=== PATIENT | female | born 1980 | race Caucasian/White ===

== ENCOUNTER 2018-08-15 20:35 | Inpatient (IN) ==
--- NOTE | 2018-08-15 20:58 | Emergency Department Note ---
ED Disposition Clinical Impression: IVDU (intravenous drug user) Cellulitis Qualifiers: Site of cellulitis: extremity Site of cellulitis of extremity: lower extremity Laterality: left Qualified Code(s): L03.116 - Cellulitis of left lower limb Anemia Qualifiers: Anemia type: unspecified type Qualified Code(s): D64.9 - Anemia, unspecified Hepatitis B Qualifiers: Viral hepatitis chronicity: unspecified Hepatic coma status: without hepatic coma Hepatitis delta agent presence: without delta-agent Qualified Code(s): B19.10 - Unspecified viral hepatitis B without hepatic coma Disposition: Admitted as Observation Condition on Discharge: Good Referrals: Hamida Moran [Primary Care Provider] - - Critical Care Critical Care Time: No Attestation: On 08/15/18, the high probability of a clinically significant, sudden or life threatening deterioration of the following system(s) required my full and direct attention, intervention and personal management. The time I documented below is in addition to time spent performing reported procedures but includes the following listed in this critical care notation. Medical Decision Making - Medical Records Medical records reviewed: Yes: I reviewed the patient's medical records. - Chriss Inquiry Pt receiving controlled substance: No Vital Signs: 08/15/18 20:41 08/15/18 21:00 08/15/18 22:00 Temperature 98.6 F Temperature Source Oral Pulse Rate [Right Brachial] 89 89 84 Respiratory Rate 16 16 16 Blood Pressure [Right Arm] 131/70 137/72 133/69 Blood Pressure Mean [Right Arm] 90 93 90 Blood Pressure Source [Right Arm] Automatic Cuff Automatic Cuff Automatic Cuff Blood Pressure Position [Right Arm] Sitting Sitting Sitting 02 Sat by Pulse Oximetry 99 99 99 Oxygen Delivery Method Room Air Room Air Room Air 08/15/18 22:30 08/15/18 23:18 Temperature Temperature Source Pulse Rate [Right Brachial] 88 86 Respiratory Rate 16 16 Blood Pressure [Right Arm] 139/80 124/71 Blood Pressure Mean [Right Arm] 99 88 Blood Pressure Source [Right Arm] Automatic Cuff Automatic Cuff Blood Pressure Position [Right Arm] Sitting Sitting 02 Sat by Pulse Oximetry 99 99 Oxygen Delivery Method Room Air Room Air - Lab Data Lab results reviewed: Yes: I reviewed the patient's lab results. Lab Results 08/15/18 20:55: Urine HCG, Qual Negative 08/15/18 20:55: Urine Opiates Screen Negative, Urine Methadone Screen Negative, Ur Barbituates Screen Negative, Ur Phencyclidine Scrn Negative, Ur Amphetamines Screen Negative, U Benzodiazepines Scrn Negative, Urine Cocaine Screen Negative, U Marijuana (THC) Screen Negative 08/15/18 21:03: Urine Color Yellow, Urine Appearance Clear, Urine pH 6.0, Ur Specific [place] 1.020, Urine Protein Negative, Urine Glucose (UA) Negative, Urine Ketones Negative, Urine Blood Trace-l, Urine Nitrate Negative, Urine Bilirubin Negative, Urine Urobilinogen 1.0, Ur Leukocyte Esterase Negative, Urine RBC Occasional, Urine WBC Occasional, Ur Squamous Epith Cells 5-10, Urine Bacteria Trace 08/15/18 21:30: WBC 14.7 H, RBC 3.27 L, Hgb 10.2 L, Hct 32.9 L, MCV 100.7 H, MCH 31.1, MCHC 30.9 L, RDW 15.6, Plt Count 435 H, MPV 7.6, Neut % (Auto) 73.1, Lymph % (Auto) 20.2, [place] % (Auto) 5.0, Eos % (Auto) 1.6, Baso % (Auto) 0.3, Neut # (Auto) 10.8 H, Lymph # (Auto) 3.0, [place] # (Auto) 0.7, Eos # (Auto) 0.2, Baso # (Auto) 0.0 08/15/18 21:30: Sodium 137, Potassium 3.4 L, Chloride 101, Carbon Dioxide 25, Anion Gap 14.4, BUN 13, Creatinine 1.16 H, Estimated Creat Clear 61, Estimated GFR 53 L, Est GFR ( Amer) 64, Glucose 116 H, Calcium 8.0 L, Total Bilirubin 2.2 H, AST 28, ALT 71, Alkaline Phosphatase 189 H, C-Reactive Protein 26.0 H, Total Protein 6.2 L, Albumin 2.3 L, Globulin 3.9 H, Albumin/Globulin Ratio 0.6 L 08/15/18 21:30: Lactate 1.3 08/15/18 21:30: Uric Acid 2.7 Result diagrams: 08/15/18 21:30 08/15/18 21:30 Orders (Tests/Meds): ORDERS Category Date Time Status CT foot LT wo con Stat Cat Scan 08/15/18 22:05 Taken Foot XR left minimum 3 views [XR foot LT min 3V] Stat Exams 08/15/18 20:55 Taken ESR [Erythrocyte Sedimentation Rate] Stat Lab 08/15/18 21:30 Received UA [Urinalysis and Microscopic] Stat Lab 08/15/18 21:03 Ordered Blood Culture Stat Micro 08/15/18 21:41 Ordered - Radiology Data #1 Image Reviewed: Yes I reviewed the patient's radiology image Preliminary Findings: No Fracture Seen - CT Data CT Scan: Other Time Received: 00:[address] Reviewed: Yes: I have viewed the radiologist's interpretation Preliminary Findings: Abnormal - Physician Consults Physician Consulted: maria luisa Reason -: Admission Lower Extremity Injury HPI - General Chief Complaint: Extremity Problem,Nontraumatic Stated Complaint: Feet pain Time Seen by Provider: 08/15/18 20:53 Mode of Arrival: Family Vehicle Source of Information: Patient, Relative, Medical Record Limitations: No Limitations Description of Symptoms (Recalled from ER Triage Doc. by RN): Pt was dx was hep.b about a month ago, she started having swelling in her feet, was seen by her pcp and given furosemide 20 mg. she is stating it is not helping, and now her feet are hurting with the swelling. - History of Present Illness HPI Narrative: progressive swelling and reddness dorsum of lt foot over the last few days - saw pcp and placed on lasic - inc pain and swelling and reddness with no hx of iv drug use in foot and no other jts swollen MD complaint: other (foot pain ) Onset (ago): day(s) Injury: Left: foot Type of Injury: other Place: home Severity: moderate Exacerbating factors: palpation Context: other Associated symptoms: able to partially bear weight Other symptoms: none - Related Data Home Medications Medication Instructions Recorded Confirmed Buspirone HCl [Buspar 10mg tablet] 10 mg PO DAILY 08/15/18 08/15/18 Furosemide [Furosemide 20mg Tab] 20 mg PO DAILY 08/15/18 08/15/18 Metoprolol Lilly/Hydrochlorothiaz 1 each PO DAILY 08/15/18 08/15/18 [Metoprolol ER-Hctz 25-12.5 mg] Allergies Allergy/AdvReac Type Severity Reaction Status Date / Time No Known Allergies Allergy Verified 08/15/18 20:48 [facility] History I have reviewed the patient's past medical history: Yes - Social History Smoking Status: Current every day smoker Tobacco Type: cigarettes Alcohol Intake: never Substance Use Type: denies use Occupational Status: unemployed Housing: house Household Members: family - Psychiatric History Expresses thoughts of harming self/others: None Suicide Plan Description: No Plan Family Hx:: Diabetes, Hypertension ROS Obtained: Yes All systems reviewed & no additional complaints - Constitutional Constitutional: Denies fever(s) - Eyes Eyes: Denies change in vision - ENT Ears, Nose, Mouth, and Throat: Denies sore throat - Cardiovascular Cardiovascular: Denies chest pain - Respiratory Respiratory: No cough - Gastrointestinal Gastrointestingal: Denies: abdominal pain - Genitourinary Male Genitourinary: Denies hematuria - Musculoskeletal Musculoskeletal: Reports as per HPI, Reports joint pain, Reports joint swelling - Integumentary/Breasts Skin/Breast: Denies rash - Neurologic Neurologic: Denies seizure-like activity Physical Exam - General General appearance: alert - Head Head exam: normocephalic - Eye Eye exam: Present: PERRL, EOMI - ENT ENT exam: Present: mucous membranes moist - Neck Neck exam: Present: trachea midline - Respiratory Respiratory exam: Present: normal lung sounds bilaterally. Absent: respiratory distress - Cardiovascular Cardiovascular exam: Present: regular rate. Absent: systolic murmur, rubs - Abdominal Exam Abdominal exam: Present: soft - Expanded Lower Extremity Exam Left Foot/toe exam: Present: tenderness, swelling, erythema - Neurological Exam Neurological exam: Present: alert, oriented X3, CN II-XII intact - Psychiatric Psychiatric exam: Present: normal affect - Skin Skin exam: Present: erythema. Absent: rash
[2018-08-15 21:08] LABS: Microscopic, Urine URINE MICROSCOPIC (MICROSCOPIC)
[2018-08-15 21:24] LABS: Amphetamine/Metha Screen,Urine Negative ng/mL (<1000); Barbiturates Screen,Urine Negative ng/mL (<200); Benzodiazepines Screen,Urine Negative ng/mL (<200); Cannabinoid Screen,Urine Negative ng/mL (<50); Cocaine Screen,Urine Negative ng/mL (<300); Methadone Screen,Urine Negative ng/mL (<300); Opiate Screen,Urine Negative ng/mL (<300); Phencyclidine Screen,Urine Negative ng/mL (<25)
[2018-08-15 22:02] LABS: Appearance,Urine CLEAR (Clear); Bilirubin,Urine Negative (Negative); Blood, Urine TRACE-L (Negative); Color,Urine YELLOW (Yellow); Glucose,Urine (UA) Negative (Negative); Ketones,Urine Negative (Negative); Leukocyte Esterase,Urine Negative (Negative); Protein,Urine Negative (Negative)
[2018-08-15 22:12] LABS: Bacteria,Urine Trace /lpf; RBC,Urine Occasional #/hpf (0-3); WBC,Urine Occasional #/hpf (0-3)
[2018-08-15 22:13] LABS: Albumin Level 2.3 gm/dL (3.4-5.0); Albumin/Globulin Ratio 0.6 (1.1-1.8); Anion Gap 14.4 mEq/L (5-15); Bilirubin,Total 2.2 mg/dL (0.2-1.0); Globulin 3.9 gm/dl (1.3-3.2); Potassium 3.4 mmoL/L (3.5-5.1); Total Protein,Serum 6.2 gm/dL (6.4-8.2)
[2018-08-15 23:25] LABS: Basophils % 0.3 % (0.1-2.0); Eosinophils # 0.2 K/mm3 (0.0-0.4); Eosinophils % 1.6 % (0.1-12.0); Hematocrit 32.9 % (37.0-47.0); Hemoglobin 10.2 g/dL (12.2-16.2); Lymphocytes % 20.2 % (10-50); Mean Corpuscular HGB Conc 30.9 g/dL (31.8-35.4); Mean Corpuscular Hemoglobin 31.1 pg (27.0-31.2); Mean Corpuscular Volume 100.7 fl (81-99); Mean Platelet Volume 7.6 fl (7.4-10.4); Monocytes # 0.7 K/mm3 (0.1-1.0); Neutrophils # 10.8 K/mm3 (1.8-7.8); Neutrophils % 73.1 % (37.0-80.0); Platelet Count 435 K/mm3 (142-424); Red Blood Count 3.27 M/mm3 (4.20-5.40); Red Cell Distribution Width 15.6 % (11.5-17.5); White Blood Count 14.7 K/mm3 (4.8-10.8)
[2018-08-16 06:17] LABS: Eosinophils % 0.1 % (0.1-12.0); Lymphocytes # 2.4 K/mm3 (0.7-4.5)
[2018-08-16 06:24] LABS: Anion Gap 12.6 mEq/L (5-15); Calcium 8.1 mg/dL (8.5-10.1); Potassium 3.6 mmoL/L (3.5-5.1)
[2018-08-16 06:28] LABS: Hematocrit 30.3 % (37.0-47.0); Hemoglobin 9.4 g/dL (12.2-16.2); Lymphocytes % 14.6 % (10-50); Mean Corpuscular HGB Conc 31.1 g/dL (31.8-35.4); Mean Corpuscular Hemoglobin 31.5 pg (27.0-31.2); Mean Corpuscular Volume 101.1 fl (81-99); Mean Platelet Volume 7.4 fl (7.4-10.4); Monocytes # 0.2 K/mm3 (0.1-1.0); Monocytes % 0.9 % (1.7-9.3); Neutrophils # 13.8 K/mm3 (1.8-7.8); Neutrophils % 84.4 % (37.0-80.0); Platelet Count 484 K/mm3 (142-424); Red Cell Distribution Width 15.4 % (11.5-17.5); White Blood Count 16.4 K/mm3 (4.8-10.8)
[2018-08-16 07:13] LABS: Lymphocytes % 10 % (10-50); Monocytes % 2 % (2-9); Neutrophils % 88 % (42-76); RBC Morphology Normal; Total Cells Counted 100
--- NOTE | 2018-08-16 08:33 | History & Physical Report ---
*Admission Date: 08/16/18 *Chief complaint: Swelling of feet *History of present illness: This 38-year-old white female been in the emergency room at [facility] with complaints of swelling of her feet. Her feet have been swollen over the past 5 or 6 days. She was seen 4 days ago by her primary care physician Dr. Moran in [facility]. She had had a low-grade fever on Monday. Patient was treated with Lasix and no antibiotics. The swelling and discomfort has continued. She has had to use a crutch in order to get around she has such discomfort in her left foot particularly. Patient has a history of IV drug use. 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 In April she went into a rehab facility in [facility]. After 10 days of detoxification she was in the facility for 28 days. She states that she has been clean since that time. She adamantly denies that she has shot heroin into the veins of the feet. Also significant in the patient's past history is a patent foramen ovale. She also has a history of headaches. To her knowledge she has not been checked for HIV. He does have known hepatitis B which apparently was contracted during her IV drug use. [facility] History Medical History: Reports:: Congenital Heart Disease, Heart Murmur (PFO), Hypertension, Migraine Denies:: Cancer, Deep Vein Thrombosis, Diabetes Mellitus Type 2, MRSA, Peripheral Vascular Disease Other Medical History: Reports: Anemia, Liver Disease Laterality Cases: Right: Breast Biopsy Other Surgeries: No: Pacemaker Amputation: No Fractures: Yes ((L) ankle) - *Social History Educational Level: Attended College Smoking Status: Current every day smoker Tobacco Type: cigarettes # Packs/Day (cigarettes): 1 #Yrs smoked (if former smoker): 22 Alcohol Intake: never Alcohol Intake Frequency:: holidays/special occasions only Substance Use Type: former substance user, heroin Last Used Substance: days (ago) (None since April) Occupational Status: unemployed Housing: house Household Members: family, children (1 daughter) - Psychiatric History Expresses thoughts of harming self/others: None Suicide Plan Description: No Plan *Family Hx:: Diabetes, Heart Attack (Father at age 57 had a heart attack. Mother has Robison's esophagus. One daughter with hearing deficit.), Hypertension : 1 Para: 1 Review of Systems - Constitutional Reports fever(s), Reports headache(s), Denies anorexia - Eyes Denies change in vision - ENT Denies abnormal hearing - *Cardiovascular Reports leg swelling, Reports foot swelling, Denies chest pain, Denies leg sores - *Respiratory Denies chest congestion, Denies shortness of breath - *Gastrointestinal Denies abdominal pain, Denies change in bowel habits, Denies change in stools - *Genitourinary Denies abnormal vaginal bleeding - Integumentary/Breasts Denies lesions - *Neurologic Denies seizure-like activity Meds Home Medications Medication Instructions Recorded Confirmed Type Buspirone HCl [Buspar 10mg tablet] 10 mg PO DAILY 08/15/18 08/16/18 History Furosemide [Furosemide 20mg Tab] 20 mg PO DAILY 08/15/18 08/16/18 History Metoprolol Lilly/Hydrochlorothiaz 25 mg PO DAILY 08/15/18 08/16/18 History [Metoprolol ER-Hctz 25-12.5 mg] Allergies Allergy/AdvReac Type Severity Reaction Status Date / Time No Known Allergies Allergy Verified 08/15/18 20:48 Exam Vital signs and Labs for Last 24 Hours: Temp Pulse Resp BP Pulse Ox 98.2 F 69 18 126/74 100 08/16/18 07:34 08/16/18 07:34 08/16/18 07:34 08/16/18 07:34 08/16/18 07:34 Laboratory Results - last 24 hr 08/15/18 20:55: Urine HCG, Qual Negative 08/15/18 20:55: Urine Opiates Screen Negative, Urine Methadone Screen Negative, Ur Barbituates Screen Negative, Ur Phencyclidine Scrn Negative, Ur Amphetamines Screen Negative, U Benzodiazepines Scrn Negative, Urine Cocaine Screen Negative, U Marijuana (THC) Screen Negative 08/15/18 21:03: Urine Color Yellow, Urine Appearance Clear, Urine pH 6.0, Ur Specific [place] 1.020, Urine Protein Negative, Urine Glucose (UA) Negative, Urine Ketones Negative, Urine Blood Trace-l, Urine Nitrate Negative, Urine Bilirubin Negative, Urine Urobilinogen 1.0, Ur Leukocyte Esterase Negative, Urine RBC Occasional, Urine WBC Occasional, Ur Squamous Epith Cells 5-10, Urine Bacteria Trace 08/15/18 21:30: WBC 14.7 H, RBC 3.27 L, Hgb 10.2 L, Hct 32.9 L, MCV 100.7 H, MCH 31.1, MCHC 30.9 L, RDW 15.6, Plt Count 435 H, MPV 7.6, Neut % (Auto) 73.1, Lymph % (Auto) 20.2, [place] % (Auto) 5.0, Eos % (Auto) 1.6, Baso % (Auto) 0.3, Neut # (Auto) 10.8 H, Lymph # (Auto) 3.0, [place] # (Auto) 0.7, Eos # (Auto) 0.2, Baso # (Auto) 0.0 08/15/18 21:30: Sodium 137, Potassium 3.4 L, Chloride 101, Carbon Dioxide 25, Anion Gap 14.4, BUN 13, Creatinine 1.16 H, Estimated Creat Clear 61, Estimated GFR 53 L, Est GFR ( Amer) 64, Glucose 116 H, Calcium 8.0 L, Total Bi lirubin 2.2 H, AST 28, ALT 71, Alkaline Phosphatase 189 H, C-Reactive Protein 26.0 H, Total Protein 6.2 L, Albumin 2.3 L, Globulin 3.9 H, Albumin/Globulin Ratio 0.6 L 08/15/18 21:30: Lactate 1.3 08/15/18 21:30: ESR 80 H 08/15/18 21:30: Uric Acid 2.7 08/16/18 05:32: WBC 16.4 H, RBC 3.00 L, Hgb 9.4 L, Hct 30.3 L, MCV 101.1 H, MCH 31.5 H, MCHC 31.1 L, RDW 15.4, Plt Count 484 H, MPV 7.4, Neut % (Auto) 84.4 H, Lymph % (Auto) 14.6, [place] % (Auto) 0.9 L, Eos % (Auto) 0.1, Baso % (Auto) 0.0 L, Neut # (Auto) 13.8 H, Lymph # (Auto) 2.4, [place] # (Auto) 0.2, Eos # (Auto) 0.0, Baso # (Auto) 0.0, Total Counted 100, Neutrophils % (Manual) 88 H, Lymphocytes % (Manual) 10, Monocytes % (Manual) 2, Platelet Estimate Normal, RBC Morphology Normal 08/16/18 05:32: Sodium 138, Potassium 3.6, Chloride 104, Carbon Dioxide 25, Anion Gap 12.6, BUN 11, Creatinine 1.00, Estimated Creat Clear 69, Estimated GFR 62, Est GFR ( Amer) 75, Glucose 156 H D, Calcium 8.1 L I & O for Last 24 hours: Intake & Output 08/13/18 08/14/18 08/15/18 08/16/18 11:59 11:59 11:59 11:59 Intake Total 50 / 50 Output Total 850 / 850 Balance -800 / -800 Weight 125 lb 8 oz - Constitutional no acute distress Comments: Pale - *Routine HEENT Exam Head: Present: normocephalic Eye: Present: EOMI, PERRL ENT: Present: mucous membranes moist - *Routine Neck Exam Present: supple. Absent: lymphadenopathy - Routine Chest/Breast/Axilla Exam Comments: Pectus excavatum - *Routine Respiratory Exam Present: CTA bilaterally - *Routine Cardiovascular Exam Present: RRR, murmur Comments: 2/6 murmur - *Routine Abdominal Exam Present: soft, normoactive bowel sounds. Absent: tenderness - *Routine Extremities Exam Comments: She has bilateral pedal edema with the left foot more swollen than the right and some skin changes noticed on the left due to stasis. She has no open wounds. Both feet are quite tender to exam. The right foot is not very erythematous at all and is much less swollen than the left. - *Routine Neurological Exam Present: alert, oriented X3, normal speech. Absent: motor deficit, tremors - Routine Psychiatric Exam Present: normal affect, normal thought process Assessment and Plan (1) Cellulitis of left foot Current visit: Yes Status: Acute Category: Medical Code(s): L03.116 - Cellulitis of left lower limb (2) Patent foramen ovale Current visit: Yes Status: Acute Category: Medical Code(s): Q21.1 - Atrial septal defect (3) Anemia Current visit: Yes Status: Acute Qualifiers: Anemia type: unspecified type Qualified Code(s): D64.9 - Anemia, unspecified Category: Medical Code(s): D64.9 - Anemia, unspecified (4) IVDU (intravenous drug user) Current visit: Yes Status: Acute Category: Medical Code(s): F19.90 - Other psychoactive substance use, unspecified, uncomplicated (5) Hepatitis B Current visit: Yes Status: Acute Qualifiers: Viral hepatitis chronicity: unspecified Hepatic coma status: without hepatic coma Hepatitis delta agent presence: without delta-agent Qualified Code(s): B19.10 - Unspecified viral hepatitis B without hepatic coma Category: Medical Code(s): B19.10 - Unspecified viral hepatitis B without hepatic coma - Assessment and plan all Dx Assessment and Plan for all problems:: IV antibiotics have been instituted. Heat will be applied to the left foot. HIV testing will be obtained.
--- NOTE | 2018-08-16 09:20 | Pharmacy Consult Notes ---
[facility] Pharmacy VTE Monitoring - Patient Demographics Admission date: 08/16/18 Report Date: 08/16/18 Time: 09:20 Allergies/Adverse Reactions: Patient Allergies No Known Allergies Allergy (Verified 08/15/18 20:48) Height: 1.68 m Weight: 56.926 kg Patient Problems: Current Active Problems Cellulitis (Acute) Anemia (Acute) IVDU (intravenous drug user) (Acute) Hepatitis B (Acute) Cellulitis of left foot (Acute) Patent foramen ovale (Acute) - VTE Risk Labs: VTE Related Lab Results Hgb 9.4 g/dL (12.2-16.2) L 08/16/18 05:32 Hct 30.3 % (37.0-47.0) L 08/16/18 05:32 Plt Count 484 K/mm3 (142-424) H 08/16/18 05:32 BUN 11 mg/dL (7-18) 08/16/18 05:32 Creatinine 1.00 mg/dL (0.55-1.02) 08/16/18 05:32 Estimated Creat Clear 69 mL/min (50-200) 08/16/18 05:32 Was VTE Risk Assessment Performed: Yes VTE Score: 2 VTE Risk Level: Low Risk Clinical Trial Participant: No - Prophylaxis VTE Prophylaxis Ordered?: Yes Types of VTE Prophylaxis: TEDS Knee High
--- NOTE | 2018-08-16 12:07 | Pharmacy Consult Notes ---
- Pharmacy Consult Date: 08/16/18 Time: 12:05 Referring provider: DR. EMANUEL Reason for Consult:: VANCOMYCIN DOSING Allergies and ADEs:: Allergies Allergy/AdvReac Type Severity Reaction Status Date / Time No Known Allergies Allergy Verified 08/15/18 20:48 Home Medications:: Home Medications Medication Instructions Recorded Confirmed Type Buspirone HCl [Buspar 10mg tablet] 10 mg PO BID 08/15/18 08/16/18 History Furosemide [Furosemide 20mg Tab] 20 mg PO DAILYP PRN 08/15/18 08/16/18 History Metoprolol Lilly/Hydrochlorothiaz 25 mg PO DAILY 08/15/18 08/16/18 History [Metoprolol ER-Hctz 25-12.5 mg] Meloxicam 15 mg PO DAILY 08/16/18 08/16/18 History Naltrexone Microspheres [Vivitrol] 380 mg IM MONTHLY 08/16/18 08/16/18 History Pantoprazole Sodium [Protonix 40mg 40 mg PO HS 08/16/18 08/16/18 History tablet] Vortioxetine Hydrobromide 10 mg PO DAILY 08/16/18 08/16/18 History [Trintellix] buPROPion HCl [Wellbutrin SR 150mg 150 mg PO BID 08/16/18 08/16/18 History Tablet] Height: 1.68 m Weight: 56.926 kg Laboratory Results:: Laboratory Results - last 24 hr 08/15/18 20:55: Urine HCG, Qual Negative 08/15/18 20:55: Urine Opiates Screen Negative, Urine Methadone Screen Negative, Ur Barbituates Screen Negative, Ur Phencyclidine Scrn Negative, Ur Amphetamines Screen Negative, U Benzodiazepines Scrn Negative, Urine Cocaine Screen Negative, U Marijuana (THC) Screen Negative 08/15/18 21:03: Urine Color Yellow, Urine Appearance Clear, Urine pH 6.0, Ur Specific [place] 1.020, Urine Protein Negative, Urine Glucose (UA) Negative, Urine Ketones Negative, Urine Blood Trace-l, Urine Nitrate Negative, Urine Bilirubin Negative, Urine Urobilinogen 1.0, Ur Leukocyte Esterase Negative, Urine RBC Occasional, Urine WBC Occasional, Ur Squamous Epith Cells 5-10, Urine Bacteria Trace 08/15/18 21:30: WBC 14.7 H, RBC 3.27 L, Hgb 10.2 L, Hct 32.9 L, MCV 100.7 H, MCH 31.1, MCHC 30.9 L, RDW 15.6, Plt Count 435 H, MPV 7.6, Neut % (Auto) 73.1, Lymph % (Auto) 20.2, [place] % (Auto) 5.0, Eos % (Auto) 1.6, Baso % (Auto) 0.3, Neut # (Auto) 10.8 H, Lymph # (Auto) 3.0, [place] # (Auto) 0.7, Eos # (Auto) 0.2, Baso # (Auto) 0.0 08/15/18 21:30: Sodium 137, Potassium 3.4 L, Chloride 101, Carbon Dioxide 25, Anion Gap 14.4, BUN 13, Creatinine 1.16 H, Estimated Creat Clear 61, Estimated GFR 53 L, Est GFR ( Amer) 64, Glucose 116 H, Calcium 8.0 L, Total Bilirubin 2.2 H, AST 28, ALT 71, Alkaline Phosphatase 189 H, C-Reactive Protein 26.0 H, Total Protein 6.2 L, Albumin 2.3 L, Globulin 3.9 H, Albumin/Globulin Ratio 0.6 L 08/15/18 21:30: Lactate 1.3 08/15/18 21:30: ESR 80 H 08/15/18 21:30: Uric Acid 2.7 08/16/18 05:32: WBC 16.4 H, RBC 3.00 L, Hgb 9.4 L, Hct 30.3 L, MCV 101.1 H, MCH 31.5 H, MCHC 31.1 L, RDW 15.4, Plt Count 484 H, MPV 7.4, Neut % (Auto) 84.4 H, Lymph % (Auto) 14.6, [place] % (Auto) 0.9 L, Eos % (Auto) 0.1, Baso % (Auto) 0.0 L, Neut # (Auto) 13.8 H, Lymph # (Auto) 2.4, [place] # (Auto) 0.2, Eos # (Auto) 0.0, Baso # (Auto) 0.0, Total Counted 100, Neutrophils % (Manual) 88 H, Lymphocytes % (Manual) 10, Monocytes % (Manual) 2, Platelet Estimate Normal, RBC Morphology Normal 08/16/18 05:32: Sodium 138, Potassium 3.6, Chloride 104, Carbon Dioxide 25, Anion Gap 12.6, BUN 11, Creatinine 1.00, Estimated Creat Clear 69, Estimated GFR 62, Est GFR ( Amer) 75, Glucose 156 H D, Calcium 8.1 L Medical History: Reports:: Congenital Heart Disease, Heart Murmur (PFO), Hypertension, Migraine Denies:: Cancer, Deep Vein Thrombosis, Diabetes Mellitus Type 2, Internal Pacemaker, MRSA, Peripheral Vascular Disease Assessment and Plan (1) Cellulitis of left foot Current visit: Yes Status: Acute Category: Medical Code(s): L03.116 - Cellulitis of left lower limb (2) Patent foramen ovale Current visit: Yes Status: Acute Category: Medical Code(s): Q21.1 - Atrial septal defect (3) Anemia Current visit: Yes Status: Acute Qualifiers: Anemia type: unspecified type Qualified Code(s): D64.9 - Anemia, unspecified Category: Medical Code(s): D64.9 - Anemia, unspecified (4) IVDU (intravenous drug user) Current visit: Yes Status: Acute Category: Medical Code(s): F19.90 - Other psychoactive substance use, unspecified, uncomplicated (5) Hepatitis B Current visit: Yes Status: Acute Qualifiers: Viral hepatitis chronicity: unspecified Hepatic coma status: without hepatic coma Hepatitis delta agent presence: without delta-agent Qualified Code(s): B19.10 - Unspecified viral hepatitis B without hepatic coma Category: Medical Code(s): B19.10 - Unspecified viral hepatitis B without hepatic coma - Assessment and plan all Dx Assessment and Plan for all problems:: BASED ON PATIENT FACTORS, RECOMMEND VANCOMYCIN 1250MG IV Q12H. WILL OBTAIN VANCOMYCIN TROUGH LEVEL PRIOR TO 4TH DOSE. PHARMACY WILL FOLLOW DAILY AND ADJUST APPROPRIATE.
[2018-08-17 05:53] LABS: Basophils % 0.1 % (0.1-2.0); Eosinophils % 0.1 % (0.1-12.0); Hematocrit 25.2 % (37.0-47.0); Lymphocytes # 3.3 K/mm3 (0.7-4.5); Lymphocytes % 15.1 % (10-50); Mean Corpuscular HGB Conc 31.1 g/dL (31.8-35.4); Mean Corpuscular Hemoglobin 31.2 pg (27.0-31.2); Mean Corpuscular Volume 100.1 fl (81-99); Mean Platelet Volume 7.3 fl (7.4-10.4); Monocytes # 0.8 K/mm3 (0.1-1.0); Monocytes % 3.9 % (1.7-9.3); Neutrophils # 17.4 K/mm3 (1.8-7.8); Neutrophils % 80.8 % (37.0-80.0); Platelet Count 412 K/mm3 (142-424); Red Blood Count 2.51 M/mm3 (4.20-5.40); Red Cell Distribution Width 15.4 % (11.5-17.5); White Blood Count 21.6 K/mm3 (4.8-10.8)
[2018-08-17 06:01] LABS: Calcium 7.4 mg/dL (8.5-10.1)
[2018-08-17 06:07] LABS: Hemoglobin 7.8 g/dL (12.2-16.2)
[2018-08-17 08:27] LABS: Lymphocytes % 11 % (10-50); Monocytes % 2 % (2-9); Neutrophils % 87 % (42-76); Total Cells Counted 100
--- NOTE | 2018-08-17 09:01 | Progress Note ---
Internal Medicine - PN: Subj *Date: 08/17/18 *Time: 08:56 Interval history: Pt is resting in bed watching tv. She has no complaint other than bilateral foot pain, left more so than right, which has improved slightly since admission. Exam Vital signs and Labs for Last 24 Hours: Temp Pulse Resp BP Pulse Ox 98.2 F 67 18 118/67 100 08/17/18 08:00 08/17/18 08:00 08/17/18 08:00 08/17/18 08:00 08/17/18 08:00 Laboratory Results - last 24 hr 08/17/18 05:39: WBC 21.6 H* D, RBC 2.51 L, Hgb 7.8 L*, Hct 25.2 L, MCV 100.1 H, MCH 31.2, MCHC 31.1 L, RDW 15.4, Plt Count 412, MPV 7.3 L, Neut % (Auto) 80.8 H, Lymph % (Auto) 15.1, [place] % (Auto) 3.9, Eos % (Auto) 0.1, Baso % (Auto) 0.1, Neut # (Auto) 17.4 H, Lymph # (Auto) 3.3, [place] # (Auto) 0.8, Eos # (Auto) 0.0, Baso # (Auto) 0.0, Total Counted 100, Neutrophils % (Manual) 87 H, Lymphocytes % (Manual) 11, Monocytes % (Manual) 2, Platelet Estimate Normal 08/17/18 05:39: Sodium 142, Potassium 3.0 L, Chloride 109 H, Carbon Dioxide 26, Anion Gap 10.0, BUN 8 D, Creatinine 0.91, Estimated Creat Clear 76, Estimated GFR 70, Est GFR ( Amer) 84, Glucose 111 H, Calcium 7.4 L I & O for Last 24 hours: Intake & Output 08/14/18 08/15/18 08/16/18 08/17/18 11:59 11:59 11:59 11:59 Intake Total 410 / 410 2967 / 2967 Output Total 850 / 850 1600 / 1600 Balance -440 / -440 1367 / 1367 Weight 125 lb 8 oz 134 lb 5 oz - Constitutional no acute distress - *Routine HEENT Exam Head: Present: normocephalic, atraumatic ENT: Present: mucous membranes moist - *Routine Respiratory Exam Present: CTA bilaterally - *Routine Cardiovascular Exam Present: RRR - *Routine Abdominal Exam Present: soft, normoactive bowel sounds. Absent: tenderness, distended, rebound, guarding, rigid - *Routine Extremities Exam Comments: bilateral pedal/ankle edema L > R with faint erythema of the left dorsal foot; sensation decreased bilaterally - *Routine Neurological Exam Present: alert, oriented X3, moving all extremities, normal speech Assessment and Plan (1) Cellulitis of left foot Current visit: Yes Status: Acute Category: Medical Code(s): L03.116 - Cellulitis of left lower limb (2) Patent foramen ovale Current visit: Yes Status: Acute Category: Medical Code(s): Q21.1 - Atrial septal defect (3) Anemia Current visit: Yes Status: Acute Qualifiers: Anemia type: unspecified type Qualified Code(s): D64.9 - Anemia, unspecified Category: Medical Code(s): D64.9 - Anemia, unspecified (4) IVDU (intravenous drug user) Current visit: Yes Status: Acute Category: Medical Code(s): F19.90 - Other psychoactive substance use, unspecified, uncomplicated (5) Hepatitis B Current visit: Yes Status: Acute Qualifiers: Viral hepatitis chronicity: unspecified Hepatic coma status: without hepatic coma Hepatitis delta agent presence: without delta-agent Qualified Code(s): B19.10 - Unspecified viral hepatitis B without hepatic coma Category: Medical Code(s): B19.10 - Unspecified viral hepatitis B without hepatic coma - Assessment and plan all Dx Assessment and Plan for all problems:: WBC increased. HIV pending. Further per Dr. Gonzalez.
--- NOTE | 2018-08-17 11:45 | Consult Report ---
*Admission Date: 08/16/18 *Chief complaint: L foot pain *History of present illness: 38-year-old female with a chief complaint of left foot pain. She started having both pain and swelling in this foot around 1 week ago. She was seen by her primary care physician who gave her furosemide; this did not improve her symptoms. She sustained a fracture in the left foot around 8 weeks ago, diagnosed at the [facility] and treated in a CAM boot; she left the CAM boot at home. She says the fracture was in the forefoot region. Currently the pain is localized to the midfoot/forefoot and she reports changes in both color and temperature. The foot is intermittently warm and cold and has been both pink/purple in color. Applying ice to the foot exacerbated her pain at home. Heat application here in the hospital did not improve her pain either. She denies any recent history of trauma; no cuts, puncture wounds, scrapes or any traumatic injuries. 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 She was treated in inpatient treatment program for 28 days and is remaining active in a recovery program at home. She denies ever having used her feet or toes as access points for her use. No other areas of cellulitis, abscesses; no pain in any other extremity. No recent illnesses such as upper respiratory or GI illnesses. She was diagnosed with hepatitis B recently which was believed to be contracted from intravenous drug use. No known history of HIV; testing was done this admission and is pending. Review of Systems - Review of Systems Review of systems:: pertinent systems reviewed and negative unless documented below - *Neurologic Reports headache(s), Denies abnormal hearing, Denies seizure-like activity [facility] History Medical History: Reports:: Congenital Heart Disease, Heart Murmur (PFO), Hypertension, Migraine Denies:: Cancer, Deep Vein Thrombosis, Diabetes Mellitus Type 2, Internal Pacemaker, MRSA, Peripheral Vascular Disease Other Medical History: Reports: Anemia, Liver Disease Laterality Cases: Right: Breast Biopsy Other Surgeries: No: Pacemaker Amputation: No Fractures: Yes ((L) foot) - *Social History Educational Level: Attended College Smoking Status: Current every day smoker Tobacco Type: cigarettes # Packs/Day (cigarettes): 1 #Yrs smoked (if former smoker): 22 Alcohol Intake: never Alcohol Intake Frequency:: holidays/special occasions only Substance Use Type: former substance user, heroin Last Used Substance: days (ago) (None since April) Occupational Status: unemployed Housing: house Household Members: family, children (1 daughter) - Psychiatric History Expresses thoughts of harming self/others: None Suicide Plan Description: No Plan *Family Hx:: Diabetes, Heart Attack (Father at age 57 had a heart attack. Mother has Robison's esophagus. One daughter with hearing deficit.), Hypertension Para: 1 Meds Home Medications Medication Instructions Recorded Confirmed Type Buspirone HCl [Buspar 10mg tablet] 10 mg PO BID 08/15/18 08/16/18 History Furosemide [Furosemide 20mg Tab] 20 mg PO DAILYP PRN 08/15/18 08/16/18 History Metoprolol Lilly/Hydrochlorothiaz 25 mg PO DAILY 08/15/18 08/16/18 History [Metoprolol ER-Hctz 25-12.5 mg] Meloxicam 15 mg PO DAILY 08/16/18 08/16/18 History Naltrexone Microspheres [Vivitrol] 380 mg IM MONTHLY 08/16/18 08/16/18 History Pantoprazole Sodium [Protonix 40mg 40 mg PO HS 08/16/18 08/16/18 History tablet] Vortioxetine Hydrobromide 10 mg PO DAILY 08/16/18 08/16/18 History [Trintellix] buPROPion HCl [Wellbutrin SR 150mg 150 mg PO BID 08/16/18 08/16/18 History Tablet] Allergies Allergy/AdvReac Type Severity Reaction Status Date / Time No Known Allergies Allergy Verified 08/15/18 20:48 Exam Vital signs and Labs for Last 24 Hours: Temp Pulse Resp BP Pulse Ox 98.2 F 67 16 118/67 100 08/17/18 08:00 08/17/18 08:00 08/17/18 10:20 08/17/18 08:00 08/17/18 08:00 Laboratory Results - last 24 hr 08/17/18 05:39: WBC 21.6 H* D, RBC 2.51 L, Hgb 7.8 L*, Hct 25.2 L, MCV 100.1 H, MCH 31.2, MCHC 31.1 L, RDW 15.4, Plt Count 412, MPV 7.3 L, Neut % (Auto) 80.8 H, Lymph % (Auto) 15.1, [place] % (Auto) 3.9, Eos % (Auto) 0.1, Baso % (Auto) 0.1, Neut # (Auto) 17.4 H, Lymph # (Auto) 3.3, [place] # (Auto) 0.8, Eos # (Auto) 0.0, Baso # (Auto) 0.0, Total Counted 100, Neutrophils % (Manual) 87 H, Lymphocytes % (Manual) 11, Monocytes % (Manual) 2, Platelet Estimate Normal 08/17/18 05:39: Sodium 142, Potassium 3.0 L, Chloride 109 H, Carbon Dioxide 26, Anion Gap 10.0, BUN 8 D, Creatinine 0.91, Estimated Creat Clear 76, Estimated GFR 70, Est GFR ( Amer) 84, Glucose 111 H, Calcium 7.4 L 08/17/18 09:40: Blood Type A Positive, Antibody Screen Negative, Crossmatch (AHG) See Detail 08/17/18 09:40: Direct Antiglob Test Negative 08/17/18 10:30: Blood Type Confirm A Positive I & O for Last 24 hours: Intake & Output 08/14/18 08/15/18 08/16/18 08/17/18 11:59 11:59 11:59 11:59 Intake Total 410 / 410 2967 / 2967 Output Total 850 / 850 1950 / 1950 Balance -440 / -440 1017 / 1017 Weight 125 lb 8 oz 134 lb 5 oz - Constitutional no acute distress, average body habitus, cooperative - *Routine HEENT Exam Head: Present: normocephalic, atraumatic Eye: Present: EOMI ENT: Present: mucous membranes moist - *Routine Neck Exam Present: supple - *Routine Respiratory Exam Present: CTA bilaterally. Absent: accessory muscle use, respiratory distress - *Routine Cardiovascular Exam Present: RRR - *Routine Abdominal Exam Present: soft. Absent: tenderness - *Routine Extremities Exam Present: edema, full ROM, pulses intact, normal capillary refill, tenderness. Absent: cyanosis, clubbing - *Routine Skin Exam Present: intact, warm - *Routine Neurological Exam Present: alert, oriented X3, normal reflexes, moving all extremities, normal tone, vision grossly intact, hearing grossly intact. Absent: sensory deficit, m otor deficit - Routine Psychiatric Exam Present: normal affect, cooperative - Additional findings Additional findings: patient AAOx3, NAD, very pleasant/cooperative L foot with mild pink color over dorsal forefoot, would not classify as erythematous or cellulitic L foot warm to touch, patient reports intermittent cooling/warmth temperature changes +hypersensitivity L foot; patient very sensitive to the lightest of touches L foot skin dry, no palpable fluctuance, no erythema spreading beyond dorsal forefoot region L foot intact DF/PF/EHL; patient more comfortable with foot in plantarflexed/adducted position palpable pedal pulses LLE SILT distally in all distributions LLE no open wounds, sores, ulcers, puncture wounds, or other lesions on L foot Results - Labs Result Diagrams: 08/17/18 05:39 08/17/18 05:39 Labs: Abnormal lab results 08/17/18 08/17/18 08/17/18 Range/Units 05:39 05:39 09:40 WBC 21.6 H* D (4.8-10.8) K/mm3 RBC 2.51 L (4.20-5.40) M/mm3 Hgb 7.8 L* (12.2-16.2) g/dL Hct 25.2 L (37.0-47.0) % MCV 100.1 H (81-99) fl MCHC 31.1 L (31.8-35.4) g/dL MPV 7.3 L (7.4-10.4) fl Neut % (Auto) 80.8 H (37.0-80.0) % Neut # (Auto) 17.4 H (1.8-7.8) K/mm3 Neutrophils % (Manual) 87 H (42-76) % Potassium 3.0 L (3.5-5.1) mmoL/L Chloride 109 H (98-107) mmol/L Glucose 111 H (74-106) mg/dL Calcium 7.4 L (8.5-10.1) mg/dL Crossmatch (AHG) See Detail H & H 08/15/18 08/16/18 08/17/18 Range/Units 21:30 05:32 05:39 Hgb 10.2 L 9.4 L 7.8 L* (12.2-16.2) g/dL Hct 32.9 L 30.3 L 25.2 L (37.0-47.0) % All other labs normal. - Diagnostic results Ankle/Foot x-ray: report reviewed, image reviewed Ankle/Foot CT: report reviewed, image reviewed (no fracture, no subcutaneous air) Assessment and Plan (1) Left foot pain Current visit: Yes Status: Acute Category: Medical Code(s): M79.672 - Pain in left foot - Assessment and plan all Dx Assessment and Plan for all problems:: I believe the patient's foot pain is more consistent with a CRPS type I picture rather than an infection. Examination shows hyperesthesia, temperature and skin color changes, and edema of the foot. She has continuing pain after a forefoot fracture which I would consider out of proportion to the inciting event. On x- ray and CT scan today, however, I do not see a fracture either acute or healed. Without her records from it is hard to say what may have been broken, or she may have had a stress reaction rather than a complete fracture. CRPS is certain ly likely even without a fracture. With the exaggerated inflammatory response in CRPS, I would not be surprised to see elevated white blood cell count as well as CRP/ESR. Blood cultures have been negative thus far. She is being treated with vancomycin and Bactrim. To be complete and rule out any soft tissue infection in the foot, I would recommend an MRI. A white blood cell count of 21 is high in my opinion, even for the exaggerated response seen in CRPS, so I would feel more comfortable if we did do an MRI just to rule out an infection in her foot, more specifically something that would need surgical treatment. If MRI is negative then I would recommend initiating treatment with gabapentin, physical therapy and possible referral to pain management. Other medical therapies that may be of benefit would be either a tricyclic/SSRI, calcitonin or pulsed doses of steroids. I will leave this up to the medical team. She felt better after I wrapped her foot with an Rishi wrap, so I ordered a cam boot to be placed on her foot and she may weight-bear as tolerated.
--- NOTE | 2018-08-17 13:00 | Pharmacy Consult Notes ---
- Pharmacy Consult Date: 08/17/18 Time: 12:59 Referring provider: DR. EMANUEL Reason for Consult:: VANCOMYCIN TROUGH LEVEL Allergies and ADEs:: Allergies Allergy/AdvReac Type Severity Reaction Status Date / Time No Known Allergies Allergy Verified 08/15/18 20:48 Home Medications:: Home Medications Medication Instructions Recorded Confirmed Type Buspirone HCl [Buspar 10mg tablet] 10 mg PO BID 08/15/18 08/16/18 History Furosemide [Furosemide 20mg Tab] 20 mg PO DAILYP PRN 08/15/18 08/16/18 History Metoprolol Lilly/Hydrochlorothiaz 25 mg PO DAILY 08/15/18 08/16/18 History [Metoprolol ER-Hctz 25-12.5 mg] Meloxicam 15 mg PO DAILY 08/16/18 08/16/18 History Naltrexone Microspheres [Vivitrol] 380 mg IM MONTHLY 08/16/18 08/16/18 History Pantoprazole Sodium [Protonix 40mg 40 mg PO HS 08/16/18 08/16/18 History tablet] Vortioxetine Hydrobromide 10 mg PO DAILY 08/16/18 08/16/18 History [Trintellix] buPROPion HCl [Wellbutrin SR 150mg 150 mg PO BID 08/16/18 08/16/18 History Tablet] Height: 1.68 m Weight: 60.923 kg Laboratory Results:: Laboratory Results - last 24 hr 08/17/18 05:39: WBC 21.6 H* D, RBC 2.51 L, Hgb 7.8 L*, Hct 25.2 L, MCV 100.1 H, MCH 31.2, MCHC 31.1 L, RDW 15.4, Plt Count 412, MPV 7.3 L, Neut % (Auto) 80.8 H, Lymph % (Auto) 15.1, [place] % (Auto) 3.9, Eos % (Auto) 0.1, Baso % (Auto) 0.1, Neut # (Auto) 17.4 H, Lymph # (Auto) 3.3, [place] # (Auto) 0.8, Eos # (Auto) 0.0, Baso # (Auto) 0.0, Total Counted 100, Neutrophils % (Manual) 87 H, Lymphocytes % (Manual) 11, Monocytes % (Manual) 2, Platelet Estimate Normal 08/17/18 05:39: Sodium 142, Potassium 3.0 L, Chloride 109 H, Carbon Dioxide 26, Anion Gap 10.0, BUN 8 D, Creatinine 0.91, Estimated Creat Clear 76, Estimated GFR 70, Est GFR ( Amer) 84, Glucose 111 H, Calcium 7.4 L 08/17/18 09:40: Blood Type A Positive, Antibody Screen Negative, Crossmatch (AHG) See Detail 08/17/18 09:40: Direct Antiglob Test Negative 08/17/18 10:30: Blood Type Confirm A Positive 08/17/18 11:45: Vancomycin Trough 12.9 Medical History: Reports:: Congenital Heart Disease, Heart Murmur (PFO), Hypertension, Migraine Denies:: Cancer, Deep Vein Thrombosis, Diabetes Mellitus Type 2, Internal Pacemaker, MRSA, Peripheral Vascular Disease Assessment and Plan (1) Cellulitis of left foot Current visit: Yes Status: Acute Category: Medical Code(s): L03.116 - Cellulitis of left lower limb (2) Patent foramen ovale Current visit: Yes Status: Acute Category: Medical Code(s): Q21.1 - Atrial septal defect (3) Anemia Current visit: Yes Status: Acute Qualifiers: Anemia type: unspecified type Qualified Code(s): D64.9 - Anemia, unspecified Category: Medical Code(s): D64.9 - Anemia, unspecified (4) IVDU (intravenous drug user) Current visit: Yes Status: Acute Category: Medical Code(s): F19.90 - Other psychoactive substance use, unspecified, uncomplicated (5) Hepatitis B Current visit: Yes Status: Acute Qualifiers: Viral hepatitis chronicity: unspecified Hepatic coma status: without hepatic coma Hepatitis delta agent presence: without delta-agent Qualified Code(s): B19.10 - Unspecified viral hepatitis B without hepatic coma Category: Medical Code(s): B19.10 - Unspecified viral hepatitis B without hepatic coma - Assessment and plan all Dx Assessment and Plan for all problems:: BASED ON PATIENT FACTORS AND VANCOMYCIN TROUGH LEVEL OF 12.9, RECOMMEND CONTINUING CURRENT DOSE OF 1,250MG IV EVERY 12 HOURS. PHARMACY WILL CONTINUE TO MONITOR AND WILL ADJUST DOSE APPROPRIATE. -MEREDITH UNDERWOOD PHARMD
[2018-08-17 21:42] LABS: Hematocrit 37.7 % (37.0-47.0)
[2018-08-17 21:48] LABS: Hemoglobin 11.8 g/dL (12.2-16.2)
--- NOTE | 2018-08-18 10:07 | Progress Note ---
Internal Medicine - PN: Subj *Date: 08/18/18 *Time: 10:04 Interval history: She continues with considerable discomfort in her foot. She shows more erythema this morning. The MRI shows involvement of the second and third metatarsals as well as the midfoot. Dr. Gonzalez spoke with Dr. Boo. Dr. Boo would like to get Dr. Bautista involved to try to salvage the foot. I have added Invanz to the regimen and DC the p.o. Bactrim. Continue vancomycin. Exam Vital signs and Labs for Last 24 Hours: Temp Pulse Resp BP Pulse Ox 98.9 F 69 16 130/76 99 08/18/18 07:58 08/18/18 07:58 08/18/18 07:58 08/18/18 07:58 08/18/18 07:58 Laboratory Results - last 24 hr 08/16/18 09:10: Vitamin B12 1186 08/16/18 09:10: Folate 7.8 08/17/18 09:40: Blood Type A Positive, Antibody Screen Negative, Crossmatch (AHG) See Detail 08/17/18 09:40: Direct Antiglob Test Negative 08/17/18 10:30: Blood Type Confirm A Positive 08/17/18 11:45: Vancomycin Trough 12.9 08/17/18 21:35: Hgb 11.8 L D, Hct 37.7 I & O for Last 24 hours: Intake & Output 08/15/18 08/16/18 08/17/18 08/18/18 11:59 11:59 11:59 11:59 Intake Total 410 / 410 2967 / 2967 2039 Output Total 850 / 850 1950 / 1950 Balance -440 / -440 1017 / 1017 2039 Weight 125 lb 8 oz 134 lb 5 oz 139 lb 8 oz Microbiology Reports for the Last 24 Hours: Microbiology 08/15/18 21:41 Blood Blood Culture - Preliminary NO GROWTH AFTER 48 HOURS 08/15/18 21:41 Blood Blood Culture - Preliminary NO GROWTH AFTER 48 HOURS - Constitutional no acute distress Comments: Foot pain - *Routine HEENT Exam Head: Present: normocephalic Eye: Present: EOMI, PERRL ENT: Present: mucous membranes moist - *Routine Respiratory Exam Present: CTA bilaterally - *Routine Cardiovascular Exam Present: RRR - *Routine Extremities Exam Present: edema Comments: There is still erythema and edema of the left foot. The erythema has increased over yesterday. Assessment and Plan (1) Left foot pain Current visit: Yes Status: Acute Category: Medical Code(s): M79.672 - Pain in left foot (2) Osteomyelitis Current visit: Yes Status: Acute Category: Medical Code(s): M86.9 - Osteomyelitis, unspecified - Assessment and plan all Dx Assessment and Plan for all problems:: Dr. Boo concurs with the Invanz sedation. She also suggested an echocardiogram to check the status of the heart and the PFO. I would mention that her hemoglobin has come up greater than 11 with a transfusion of 2 units. I suspect to the 7.8 hemoglobin was erroneous.
[2018-08-18 10:56] LABS: Basophils # 0.1 K/mm3 (0-0.2); Basophils % 0.4 % (0.1-2.0); Eosinophils # 0.3 K/mm3 (0.0-0.4); Eosinophils % 2.1 % (0.1-12.0); Hematocrit 34.2 % (37.0-47.0); Hemoglobin 11.4 g/dL (12.2-16.2); Lymphocytes # 3.3 K/mm3 (0.7-4.5); Mean Corpuscular HGB Conc 33.4 g/dL (31.8-35.4); Mean Corpuscular Hemoglobin 31.4 pg (27.0-31.2); Mean Corpuscular Volume 93.9 fl (81-99); Mean Platelet Volume 6.8 fl (7.4-10.4); Monocytes % 7.5 % (1.7-9.3); Neutrophils # 9.1 K/mm3 (1.8-7.8); Platelet Count 389 K/mm3 (142-424); Red Blood Count 3.64 M/mm3 (4.20-5.40); Red Cell Distribution Width 15.8 % (11.5-17.5); White Blood Count 13.8 K/mm3 (4.8-10.8)
--- NOTE | 2018-08-18 12:14 | Progress Note ---
Subjective Date: 08/18/18 Time: 11:30 Principal diagnosis: L foot pain Interval history: The patient still reports pain in the L foot, initially well-controlled with toradol, but that only seems to last around 3 hours. Dorsum of L foot slightly more erythematous today. CAM boot not fitting properly because of foot swelling, but comfortable in bed with foot elevated. WBC had decreased to 13, remains afebrile. MRI of L foot performed yesterday. The patient recalls injuring the foot just prior to 2017; she was sitting with her legs crossed underneath her, and when she tried to get up she rolled the ankle. She had immediate pain and was reportedly diagnosed with a fracture at via XR and placed in a CAM boot. PN: Obj Ex Vital signs: Temp Pulse Resp BP Pulse Ox 98.9 F 69 16 130/76 99 08/18/18 07:58 08/18/18 07:58 08/18/18 07:58 08/18/18 07:58 08/18/18 07:58 - Constitutional no acute distress, average body habitus - Routine HEENT Exam Head: Present: normocephalic, atraumatic Eye: Present: EOMI ENT: Present: mucous membranes moist - Routine Neck Exam Present: supple - Routine Respiratory Exam Present: CTA bilaterally. Absent: accessory muscle use, wheezes - Routine Cardiovascular Exam Present: RRR - Routine Abdominal Exam Present: soft. Absent: tenderness, distended - Routine Extremities Exam Present: edema, full ROM, pulses intact, normal capillary refill, tenderness. Absent: cyanosis, calf tenderness, joint swelling, pallor, extremity cold to touch Comments: L foot slightly more erythematous today, extends across dorsum of foot, stops at base of toes and anterior ankle joint line. No joint effusion of ankle, no tenderness over ankle medially or laterally. Dorsum of L foot hypersensitive to light touch, patient jumps when foot even grazed Palpable pedal pulses LLE, brisk cap refill distally L foot warm, dry, no wounds -- no ulcers, no abrasions/lacerations, no ecchymosis, no puncture wounds Sensation grossly intact despite hypersensitivity; SILT in all distributions LLE Intact DF/PF/EHL LLE, 5/5 strength L calf soft, non-tender, no pain with passive DF - Routine Skin Exam Present: intact, erythema, dry, warm. Absent: cyanosis, lesions, scars, wounds, rash, cracked, gangrene, ecchymosis - Routine Neurological Exam Present: alert, oriented X3, normal reflexes, moving all extremities, normal tone, vision grossly intact, hearing grossly intact. Absent: sensory deficit, motor deficit - Routine Psychiatric Exam Present: normal affect, normal thought process, good insight, good judgment Progress Note: A&P (1) Left foot pain Status: Acute Current Visit: Yes Assessment and Plan for All Diagnoses:: 38 year-old female with L foot pain -- pain began with an acute injury where she "rolled" her foot/ankle; reportedly diagnosed with a fracture at via XR, but I do not see a fracture currently, or evidence of a healed fracture -- MRI of the L foot showed increased signal in multiple bones of the midfoot, which may be caused by osteomyelitis, but can also be seen with a diffuse stress reaction or CRPS -- clinically the skin is slightly more erythematous today, which may be a mild cellulitis, but is not severe, and the patient has no draining sinus tracts, no ulcerations, no wounds or traumatic injuries that would explain the origin of an osteomyelitic infection. The patient is adamant that she never injected drugs into her foot, and when she used it was only briefly (3mo) before she went to treatment; no history of abscesses or infections at any injection sites. Cannot exclude current infection elsewhere, but blood cultures have been negative thus far. Echo recommended to r/o septic vegetations, especially with h/o PFO; unlikely, but I feel it must be excluded. Also, she has remained afebrile, and WBC has decreased to 13 today. -- Osteomyelitis is certainly a possibility, but in a young patient with no clear-cut point of entry for infection and equivocal exam findings, I am not convinced yet. MRI findings are suspicious, but may also be explained by stress reaction or CRPS. These could also co-exist with an overlying cellulitis. I think it is important to have no doubts about her diagnosis, because treating osteomyelitis can be very difficult and often leads to extremity amputation, which would be traumatic in such a young patient. Therefore, I recommend bone biopsy to definitively rule in/out infection; I will plan on doing this tomorrow morning in the OR. -- I discussed the plan with the patient, who is in agreement. Risks, benefits and alternatives to bone biopsy were discussed with the patient, who vocalized understanding and provided informed consent for the procedure. Until results of the pathology/cultures are available, I agree with continuing antibiotic therapy. Ideally I would perform the biopsy before starting antibiotics, but she has already been on them for several days and I do not see a benefit to stopping them now.
[2018-08-19 07:44] LABS: Basophils % 0.3 % (0.1-2.0); Eosinophils # 0.4 K/mm3 (0.0-0.4); Eosinophils % 2.8 % (0.1-12.0); Hemoglobin 11.6 g/dL (12.2-16.2); Lymphocytes # 3.7 K/mm3 (0.7-4.5); Lymphocytes % 29.2 % (10-50); Mean Corpuscular HGB Conc 32.2 g/dL (31.8-35.4); Mean Corpuscular Hemoglobin 30.4 pg (27.0-31.2); Mean Corpuscular Volume 94.4 fl (81-99); Mean Platelet Volume 7.1 fl (7.4-10.4); Monocytes # 0.7 K/mm3 (0.1-1.0); Monocytes % 5.7 % (1.7-9.3); Neutrophils # 7.9 K/mm3 (1.8-7.8); Platelet Count 423 K/mm3 (142-424); Red Blood Count 3.82 M/mm3 (4.20-5.40); Red Cell Distribution Width 15.5 % (11.5-17.5); White Blood Count 12.8 K/mm3 (4.8-10.8)
[2018-08-19 07:49] LABS: Activated Partial Thrombo Time 29.4 seconds (23.6-34.0); INR 1.04 (0.9-1.1); Prothrombin Time 10.7 seconds (9.4-11.8)
[2018-08-19 07:50] LABS: Anion Gap 13.9 mEq/L (5-15); Calcium 7.9 mg/dL (8.5-10.1); Potassium 3.9 mmoL/L (3.5-5.1)
--- NOTE | 2018-08-19 11:14 | Progress Note ---
[facility] Anesthesia Checklist - Patient Identification Patient Identification: Arm Band - Structural Data Admitted From: Home Planned Operative Procedure/s: bone biopsy left foot Consent for Planned Operative Procedure(s) Verified: Yes Verified Documents: Surgical Consent, History and Physical - NPO Status Verified Time NPO: 00:00 - Additional verifications Anesthesia Reactions: No - Airway Assessment C-Spine Mobility Assessed: Yes (mp2) TMJ Mobility Assessed: Yes Dentition: Good Dentition - Neurological Assessment Level of Consciousness: Awake, Alert - Anesthesia Plan Anesthesia Risk discussed: Yes Anesthesia Plan: Verified ASA Class: III Anesthesia Type: General [facility] History I have reviewed the patient's past medical history: Yes Medical History: Reports:: Chronic Obstructive Pulmonary Disease (COPD), Congenital Heart Disease, Gastroesophageal Reflux Disease(GERD), Heart Murmur (PFO), Hypertension, Migraine Denies:: Cancer, Deep Vein Thrombosis, Diabetes Mellitus Type 2, Internal Pacemaker, MRSA, Peripheral Vascular Disease Other Medical History: Reports: Anemia, Liver Disease Laterality Cases: Right: Breast Biopsy Other Surgeries: No: Pacemaker Amputation: No Fractures: Yes ((L) foot) - *Social History Educational Level: Attended College Smoking Status: Current every day smoker Tobacco Type: cigarettes # Packs/Day (cigarettes): 1 #Yrs smoked (if former smoker): 22 Alcohol Intake: never Alcohol Intake Frequency:: holidays/special occasions only Substance Use Type: former substance user, heroin Last Used Substance: days (ago) (None since April) Occupational Status: unemployed Housing: house Household Members: family, children (1 daughter) - Psychiatric History Expresses thoughts of harming self/others: None Suicide Plan Description: No Plan *Family Hx:: Diabetes, Heart Attack (Father at age 57 had a heart attack. Mother has Robison's esophagus. One daughter with hearing deficit.), Hypertension Para: 1
--- NOTE | 2018-08-19 11:15 | Progress Note ---
[facility] Anesthesia Record Part II Discharge Time: 11:40 Destination: 2nd floor PACU nurse assessment reviewed?: Yes Patient Condition:: Good Anesthesia Complications:: None
--- NOTE | 2018-08-19 11:15 | Progress Note ---
[facility] Anesthesia Record Part I Intake, IV Amount: 400 Estimated blood loss (mL): 5 Urine output (mL): 0 Blood Pressure: 127/76 SaO2: 100 Pulse Rate: 58 Respiratory Rate: 16 Temperature: 97.5 F Patient is:: Drowsy, Stable Stable to PACU at:: 11:10
--- NOTE | 2018-08-19 11:37 | Progress Note ---
Subjective Date: 08/19/18 Time: 11:00 Principal diagnosis: L foot pain Interval history: Dorsum of L foot increasingly erythematous this morning. Patient taken to OR for bone biopsy, which went well, but there was pus deep within foot when biopsy specimen was taken. This confirms the diagnosis of osteomyelitis. Remains on ertapenem. Patient remains afebrile, WBC continuing to decrease; 12.8 this morning. PN: Obj Ex Vital signs: Temp Pulse Resp BP Pulse Ox 97.5 F L 58 L 16 127/76 100 08/19/18 11:15 08/19/18 11:15 08/19/18 11:15 08/19/18 11:15 08/19/18 11:10 - Routine Extremities Exam Comments: Exam unchanged, but L foot dorsal erythema more intense. No drainage, no fluctuance. Remains NVI LLE. Progress Note: A&P (1) Left foot pain Status: Acute Current Visit: Yes (2) Osteomyelitis Status: Acute Current Visit: Yes Assessment and Plan for All Diagnoses:: L foot osteomyelitis; pus seen on biopsy -- sent specimens for pathology/culture; took bone biopsies from base of 2d me tatarsal and middle cuneiform, fluid culture swabs of purulent material from incisions -- I believe this is most likely a chronic infection picked up while the patient was still using and has been smoldering in the foot for months -- recommend PICC line and prolonged IV antibiotic therapy, but ultimately will likely require amputation; will transfer to for multidisciplinary treatment including both ID and foot and ankle surgical specialists -- I've spoken with Dr. Elkins at , who will accept the patient onto his service -- the patient is in agreement with this plan -- more detail to follow in the operative note
--- NOTE | 2018-08-19 12:26 | Progress Note ---
Internal Medicine - PN: Subj *Date: 08/19/18 *Time: 12:24 Interval history: See Dr. Boo's operative report. The diagnosis is osteomyelitis. There is certainly a chance for amputation. Dr. Boo feels that the patient will be best served by transfer to the [facility]. She has spoken to Dr. Elkins there who will accept the patient on transfer. Exam Vital signs and Labs for Last 24 Hours: Temp Pulse Resp BP Pulse Ox 97.3 F L 59 L 16 133/69 99 08/19/18 12:15 08/19/18 12:15 08/19/18 12:15 08/19/18 12:15 08/19/18 12:15 Laboratory Results - last 24 hr 08/19/18 06:35: WBC 12.8 H, RBC 3.82 L, Hgb 11.6 L, Hct 36.0 L, MCV 94.4, MCH 30.4, MCHC 32.2, RDW 15.5, Plt Count 423, MPV 7.1 L, Neut % (Auto) 62.0, Lymph % (Auto) 29.2, [place] % (Auto) 5.7, Eos % (Auto) 2.8, Baso % (Auto) 0.3, Neut # (Auto) 7.9 H, Lymph # (Auto) 3.7, [place] # (Auto) 0.7, Eos # (Auto) 0.4, Baso # (Auto) 0.0 08/19/18 06:35: Sodium 139, Potassium 3.9 D, Chloride 105, Carbon Dioxide 24, Anion Gap 13.9, BUN 9, Creatinine 0.99, Estimated Creat Clear 75, Estimated GFR 63, Est GFR ( Amer) 76, Glucose 77, Calcium 7.9 L 08/19/18 06:35: PT 10.7, INR 1.04, APTT 29.4 I & O for Last 24 hours: Intake & Output 08/17/18 08/18/18 08/19/18 08/20/18 11:59 11:59 11:59 11:59 Intake Total 2967 / 2967 2039 / 2041 Output Total 1950 / 1950 1000 / 1000 Balance 1017 / 1017 2039 1042 / 1042 Weight 134 lb 5 oz 139 lb 8 oz 134 lb 3 oz - Constitutional no acute distress Comments: Postop - *Routine HEENT Exam Comments: Appears pale, sallow. - *Routine Respiratory Exam Present: CTA bilaterally - *Routine Cardiovascular Exam Present: RRR - *Routine Abdominal Exam Present: soft. Absent: tenderness - *Routine Extremities Exam Comments: Dressing in place. Assessment and Plan (1) Left foot pain Current visit: Yes Status: Acute Category: Medical Code(s): M79.672 - Pain in left foot (2) Osteomyelitis Current visit: Yes Status: Acute Category: Medical Code(s): M86.9 - Osteomyelitis, unspecified - Assessment and plan all Dx Assessment and Plan for all problems:: Transfer to the [facility] for further evaluation and care.
--- NOTE | 2018-08-19 15:17 | Operative Note ---
Date of procedure: 08/19/18 Pre-op Diagnosis:: L foot pain, swelling, erythema Post-op Diagnosis:: L foot osteomyelitis Procedure performed:: L foot bone biopsy Surgeon:: Jeri Ortiz MD Pig Conveyor Operator(s):: none SILVERING DEPARTMENT SUPERVISOR:: Syd Cardenas Anesthesia: GETA Estimated blood loss (mL): 5 Clinical Note:: 38 year-old female admitted 08/15/2018 with pain and swelling in the L foot, with mild erythema over the dorsum of the foot. She recalls having injured the foot in late June 2018, and was told at the [facility] that she had a fracture in the midfoot. She was placed in a CAM boot. The pain and swelling began less than 1 week prior to presentation. She denies any open wounds on the foot; no ulcerations, no abrasions or lacerations. She is a former IV drug user; she used only around 3 months but in that time frame contracted hepatitis B and entered treatment in April 2018. She is nearly 90 days clean and sober, and UDS on admission was negative. She denies having ever injected into her foot, and does not report any infections/abscesses at injection sites. No known history of any infection elsewhere: no upper respiratory illnesses, no GI/ illnesses, and no recent symptoms suspicious for these conditions. She has a h/o patent foramen ovale; no recent echo. XR and CT scan did not reveal a fracture in the foot, and clinically there was little erythema. She was hypersensitive to touch and reported color and temperature changes in the foot. I initially suspected possible CRPS but ordered MRI to rule out infection. There were no identifiable abscesess or fluid collections on MRI, but there was significantly increased signal in the midfoot, at the base of 2d/3d metatarsals and middle/lateral cuneiforms. This could have been attributed to osteomyelitis, CRPS or a diffuse stress reaction. With her history of foot injury and no reported open wounds on the foot, and no infection elsewhere, I thought osteo myelitis unlikely. Therefore, the decision was made to perform a bone biopsy to establish a definitive diagnosis. Risks, benefits and alternatives to the procedure were discussed with the patient, who vocalized understanding and provided informed consent. She has been on both vancomycin and ertapenem (and previously bactrim PO) prior to surgery; given dose of ertapenem at 9am this morning. Operative findings:: purulent fluid localized over base of 2d metatarsal and middle cuneiform Operative note:: The patient was identified in preoperative holding and the left foot signed by myself. She was taken to the operating room and placed supine on the OR table. General anesthesia was induced. Ertapenem was redosed around 9 AM this morning so no additional antibiotics were started. Prior to anesthesia SCD was placed on the nonoperative right lower extremity. A nonsterile tourniquet was placed on the upper calf of the left leg and the left foot was then prepped and draped in the usual sterile fashion. C-arm was sterilely draped and brought in over the foot as well. Timeout was then performed, identifying the correct patient, correct procedure, and correct site. The procedure was begun by holding a hemostat over the skin and using the C-arm to localize my desired area of bone biopsy. MRI showed the greatest areas of signal uptake were at the base of the 2d metatarsal and the middle/lateral cuneiforms; thus I chose to biopsy the 2d MT base and middle cuneiform. Once the desired skin incision sites were chosen and drawn with marking pin, the left leg was elevated for several minutes and tourniquet inflated to 200mmHg; the limb was not exsanguinated with an esmarch. A small longitudinal incision approximately 0.3 cm long was made longitudinally with a 15 blade over the base of the 2d metatarsal, just medial to the area of erythema on the dorsum of the foot. I did not incise through any area of cellulitis but was just medial to this. Once the skin was incised I used a hemostat to bluntly spread the subcutaneous tissue down to the bone. As soon as the soft tissues were spread, there was return of a moderate amount of purulent fluid. Cultures were taken of purulent fluid from the incision over the 2d MT (aerobic + anaerobic) and over the middle cuneiform (2 more cx). There was not an abscess or pocket of fluid to drain, and once the initial 1-2cc were expressed from the wound, no more was seen. I then placed a small 11-gauge Jamshidi needle directly over the base of the second metatarsal. This was gently tapped into place with a mallet and then advanced by hand until a small core biopsy of bone was removed from the base of the second metatarsal. This was done twice removing 2 small cylinders of bone. This was deemed an adequate sample of this bone and so I moved proximally to take a similar sample from the middle cuneiform. A small stab incision was made directly over the middle cuneiform longitudinally and once the skin was incised the soft tissue spread with a hemostat again, down to the bone. 11-gauge Jamshidi needle was used to take another small core biopsy of the bone. This was repeated twice removing 2 small sections of bone. Each sample was put in separate specimen jars with formalin and sent for pathology and culture. Tourniquet was then deflated and there was some oozing from the incisions; pressure was applied and the bleeding stopped. Incisions were then irrigated with sterile saline and closed with 3-0 nylon. Sterile dressings were applied; the patient tolerated the procedure well with no immediate adverse sequela. Condition: stable Disposition: floor Specimens:: Fluid cultures, 2 sites, aerobic and anaerobic (2d MT base and middle cuneiform); total of 4 swabs. Bone biopsies, core samples with 11G jamshidi, taken from 1) base of 2d MT; and 2) middle cuneiform (total of 2 biopsy samples sent in formalin). Complications:: none
--- NOTE | 2018-08-20 07:30 | Progress Note ---
Internal Medicine - PN: Subj *Date: 08/20/18 *Time: 07:29 Exam Vital signs and Labs for Last 24 Hours: Temp Pulse Resp BP Pulse Ox 98.4 F 68 17 126/82 98 08/20/18 04:00 08/20/18 04:00 08/20/18 04:00 08/20/18 04:00 08/20/18 04:00 Laboratory Results - last 24 hr 08/16/18 09:10: HIV-1 RNA PCR copies/ml <20, HIV-1 RNA (PCR) log10 TNP 08/19/18 06:35: WBC 12.8 H, RBC 3.82 L, Hgb 11.6 L, Hct 36.0 L, MCV 94.4, MCH 30.4, MCHC 32.2, RDW 15.5, Plt Count 423, MPV 7.1 L, Neut % (Auto) 62.0, Lymph % (Auto) 29.2, [place] % (Auto) 5.7, Eos % (Auto) 2.8, Baso % (Auto) 0.3, Neut # (Auto) 7.9 H, Lymph # (Auto) 3.7, [place] # (Auto) 0.7, Eos # (Auto) 0.4, Baso # (Auto) 0.0 08/19/18 06:35: Sodium 139, Potassium 3.9 D, Chloride 105, Carbon Dioxide 24, Anion Gap 13.9, BUN 9, Creatinine 0.99, Estimated Creat Clear 75, Estimated GFR 63, Est GFR ( Amer) 76, Glucose 77, Calcium 7.9 L 08/19/18 06:35: PT 10.7, INR 1.04, APTT 29.4 I & O for Last 24 hours: Intake & Output 08/17/18 08/18/18 08/19/18 08/20/18 23:59 23:59 23:59 23:59 Intake Total 1790 / 1790 1570 / 1570 1737 / 1737 120 / 120 Output Total 350 / 350 400 / 400 1600 / 1600 1200 / 1200 Balance 1440 / 1440 1170 / 1170 137 / 137 -1080 / -1080 Weight 60.923 kg 63.276 kg 60.866 kg 59.903 kg Microbiology Reports for the Last 24 Hours: Microbiology 08/19/18 10:42 Foot,Left - Wound Gram Stain - Final 08/19/18 10:42 Foot,Left - Wound Abscess Culture - Preliminary Gram Positive Cocci 08/19/18 10:42 Foot,Left Gram Stain - Final 08/19/18 10:42 Foot,Left Abscess Culture - Preliminary Gram Positive Cocci Assessment and Plan (1) Left foot pain Current visit: Yes Status: Acute Category: Medical Code(s): M79.672 - Pain in left foot (2) Osteomyelitis Current visit: Yes Status: Acute Category: Medical Code(s): M86.9 - Osteomyelitis, unspecified The patient's infection will respond to the chosen ABx?: Yes Is the patient receiving the right drug, dose, and route?: Yes Could a more targeted ABx be ordered?: No
--- NOTE | 2018-08-20 09:27 | Progress Note ---
Internal Medicine - PN: Subj *Date: 08/20/18 *Time: 09:24 Interval history: The patient was not discharged yesterday because we could not locate transportation by ambulance. We will try to arrange this today. If she cannot go by ambulance it would be possible for her to go by car. Exam Vital signs and Labs for Last 24 Hours: Temp Pulse Resp BP Pulse Ox 98.8 F 62 16 114/64 94 L 08/20/18 08:00 08/20/18 08:00 08/20/18 08:57 08/20/18 08:00 08/20/18 08:00 Laboratory Results - last 24 hr 08/16/18 09:10: HIV-1 RNA PCR copies/ml <20, HIV-1 RNA (PCR) log10 TNP HIV test negative I & O for Last 24 hours: Intake & Output 08/17/18 08/18/18 08/19/18 08/20/18 11:59 11:59 11:59 11:59 Intake Total 2967 / 2967 2040 / 2040 2042 / 2042 655 / 655 Output Total 1950 / 1950 1000 / 1000 2200 / 2200 Balance 1017 / 1017 2040 / 2040 1042 / 1042 -1545 / -1545 Weight 134 lb 5 oz 139 lb 8 oz 134 lb 3 oz 132 lb 1 oz Microbiology Reports for the Last 24 Hours: Microbiology 08/19/18 10:42 Foot,Left - Other Gram Stain - Final 08/19/18 10:42 Foot,Left - Left Side Gram Stain - Final 08/19/18 10:42 Foot,Left - Wound Gram Stain - Final 08/19/18 10:42 Foot,Left - Wound Abscess Culture - Preliminary Gram Positive Cocci 08/19/18 10:42 Foot,Left Gram Stain - Final 08/19/18 10:42 Foot,Left Abscess Culture - Preliminary Gram Positive Cocci - *Routine HEENT Exam Head: Present: normocephalic Eye: Present: EOMI, PERRL ENT: Present: mucous membranes moist Comments: She has dark circles under her eyes. - *Routine Respiratory Exam Present: CTA bilaterally - *Routine Cardiovascular Exam Present: RRR. Absent: murmur - *Routine Abdominal Exam Present: soft. Absent: tenderness - *Routine Extremities Exam Comments: Dressing is in place. She is not tender in the right foot now. - *Routine Neurological Exam Present: alert, oriented X3 Assessment and Plan (1) Left foot pain Current visit: Yes Status: Acute Category: Medical Code(s): M79.672 - Pain in left foot (2) Osteomyelitis Current visit: Yes Status: Acute Category: Medical Code(s): M86.9 - Osteomyelitis, unspecified - Assessment and plan all Dx Assessment and Plan for all problems:: We will try to accomplish the transfer today.
--- NOTE | 2018-08-20 22:00 | Discharge Summary ---
General - General Admission date:: 08/16/18 Discharge date: 08/20/18 HPI HPI: This 38-year-old white female been in the emergency room at [facility] with complaints of swelling of her feet. Her feet have been swollen over the past 5 or 6 days. She was seen 4 days ago by her primary care physician Dr. Moran in [facility]. She had had a low-grade fever on Monday. Patient was treated with Lasix and no antibiotics. The swelling and discomfort has continued. She has had to use a crutch in order to get around she has such discomfort in her left foot particularly. Patient has a history of IV drug use. 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 In April she went into a rehab facility in [facility]. After 10 days of detoxification she was in the facility for 28 days. She states that she has been clean since that time. She adamantly denies that she has shot heroin into the veins of the feet. Also significant in the patient's past history is a patent foramen ovale. She a lso has a history of headaches. To her knowledge she has not been checked for HIV. She does have known hepatitis B which apparently was contracted during her IV drug use. Hospital Course Hospital Course: She was started on IV abx and HIV testing was ordered and was negative. She had an x-ray of the foot showing soft tissue swelling. A CT of the foot showed the same. Her white blood cell count was elevated, her hemoglobin was 7.8, and her potassium was 3.0. She had to have a blood transfusion and potassium supplementation. Orthopedic surgery was consulted and bactrim DS was added twice daily. She was seen by ortho and an MRI of the foot was ordered. It showed osteomyelitis of the second and third metatarsals as well as the midfoot. Invanz was added to the regimen and the p.o. Bactrim was discontinued. Vancomycin was continued as well. Sr. Ortiz was not convinced the patient had osteomyelitis. She felt it was important to have no doubts about her diagnosis, because treating osteomyelitis can be very difficult and often leads to extremity amputation, which would be traumatic in such a young patient. She therefore performed a bone biopsy. There was pus deep within foot when the biopsy specimen was taken. This confirmed the diagnosis of osteomyelitis. The patient remained on ertapenem. Her WBC did decrease. Dr. Ortiz felt the patient would need transfer to for multidisciplinary treatment including both ID and foot and ankle surgical specialists. She spoke with Dr. Elkins at , who accepted the patient onto his service and she was transferred. Objective Vital signs: Temp Pulse Resp BP Pulse Ox 98.8 F 62 16 114/64 94 L 08/20/18 08:00 08/20/18 08:00 08/20/18 11:15 08/20/18 08:00 08/20/18 08:00 Narrative: - Constitutional no acute distress Comments: Pale - *Routine HEENT Exam Head: Present: normocephalic Eye: Present: EOMI, PERRL ENT: Present: mucous membranes moist - *Routine Neck Exam Present: supple. Absent: lymphadenopathy - Routine Chest/Breast/Axilla Exam Comments: Pectus excavatum - *Routine Respiratory Exam Present: CTA bilaterally - *Routine Cardiovascular Exam Present: RRR, murmur Comments: 2/6 murmur - *Routine Abdominal Exam Present: soft, normoactive bowel sounds. Absent: tenderness - *Routine Extremities Exam Comments: She has bilateral pedal edema with the left foot more swollen than the right and some skin changes noticed on the left due to stasis. She has no open wounds. Both feet are quite tender to exam. The right foot is not very erythematous at all and is much less swollen than the left. - *Routine Neurological Exam Present: alert, oriented X3, normal speech. Absent: motor deficit, tremors - Routine Psychiatric Exam Present: normal affect, normal thought process Results Labs on day of discharge: Preliminary micro results at discharge 08/19/18 10:42 Surgical Biopsy Culture - Preliminary Foot,Left - Left Side NO GROWTH AFTER 24 HOURS 08/19/18 10:42 Surgical Biopsy Culture - Preliminary Foot,Left - Other NO GROWTH AFTER 24 HOURS 08/19/18 10:42 Abscess Culture - Preliminary Foot,Left - Wound Gram Positive Cocci 08/19/18 10:42 Abscess Culture - Preliminary Foot,Left Gram Positive Cocci 08/15/18 21:41 Blood Culture - Preliminary Blood NO GROWTH AFTER 48 HOURS 08/15/18 21:41 Blood Culture - Preliminary Blood NO GROWTH AFTER 48 HOURS DS: Diagnosis - Discharge Diagnosis (1) Left foot pain Status: Acute (2) Osteomyelitis Status: Acute Discharge Plan - Patient Discharge Instructions ACTIVITY: Bed rest DIET: continue same diet Patient Instructions: DI for Cellulitis -- Adult, DI for Surgical Site Infection Forms: Transfer Record - Follow up Plan Disposition: Xfer Short-Term Hosp Home Medications: Home Medications Medication Instructions Recorded Confirmed Type Buspirone HCl [Buspar 10mg tablet] 10 mg PO BID 08/15/18 08/16/18 History Furosemide [Furosemide 20mg Tab] 20 mg PO DAILYP PRN 08/15/18 08/16/18 History Metoprolol Lilly/Hydrochlorothiaz 25 mg PO DAILY 08/15/18 08/16/18 History [Metoprolol ER-Hctz 25-12.5 mg] Meloxicam 15 mg PO DAILY 08/16/18 08/16/18 History Naltrexone Microspheres [Vivitrol] 380 mg IM MONTHLY 08/16/18 08/16/18 History Pantoprazole Sodium [Protonix 40mg 40 mg PO HS 08/16/18 08/16/18 History tablet] Vortioxetine Hydrobromide 10 mg PO DAILY 08/16/18 08/16/18 History [Trintellix] buPROPion HCl [Wellbutrin SR 150mg 150 mg PO BID 08/16/18 08/16/18 History Tablet] Prescriptions/Medication Reconciliation: New 0.9 % Sodium Chloride [Saline Flush 10mL syringe] 10 ml IV NEEDED PRN syringe PRN Reason: Maintain Iv Site 0.9 % Sodium Chloride [Saline Flush 10mL syringe] 10 ml IV NEEDED PRN syringe PRN Reason: Maintain Iv Site 0.9 % Sodium Chloride [Sod Chlor 0.9% 25mL Bag] 25 ml IV NEEDED PRN bag PRN Reason: For Use With Iv Promethazine Morphine Sulfate [Morphine 2mg/mL syringe] 2 mg IV Q5MINP PRN syringe PRN Reason: Severe Pain Nicotine [Nicoderm 21mg/24hr patch] 21 mg TD DAILYP PRN patch.td24 PRN Reason: Nicotine Cravings Ondansetron HCl/Pf [Zofran 4mg/2mL vial] 4 mg IV Q6HP PRN vial PRN Reason: Nausea Ondansetron HCl/Pf [Zofran 4mg/2mL vial] 4 mg IV Q8HP PRN vial PRN Reason: Nausea Potassium Chloride [Klor-con 20 mEq tablet] 20 meq PO TID tablet Promethazine HCl [Phenergan 25mg/mL 1mL vial] 6.25 mg IV [id number] PRN vial PRN Reason: Nausea And Vomiting Sulfamethoxazole/Trimethoprim [Bactrim DS tablet] 1 each PO BID tablet Tramadol HCl [Ultram 50mg tablet] 50 mg PO TID tablet Vancomycin HCl [Vancomycin 1000mg Vial] 1,250 mg IV Q12H vial hydroCHLOROthiazide [HCTZ 12.5mg capsule] 12.5 mg PO DAILY capsule Ertapenem Sodium [Invanz 1gm Vial] 1 gm IV Q24H vial Continue Furosemide [Furosemide 20mg Tab] 20 mg PO DAILYP PRN PRN Reason: NEEDED FOR SWELLING Metoprolol Lilly/Hydrochlorothiaz [Metoprolol ER-Hctz 25-12.5 mg] 25 mg PO DAILY Buspirone HCl [Buspar 10mg tablet] 10 mg PO BID Meloxicam 15 mg PO DAILY Vortioxetine Hydrobromide [Trintellix] 10 mg PO DAILY buPROPion HCl [Wellbutrin SR 150mg Tablet] 150 mg PO BID Pantoprazole Sodium [Protonix 40mg tablet] 40 mg PO HS Naltrexone Microspheres [Vivitrol] 380 mg IM MONTHLY
== END 2018-08-20 11:44 | disposition short-term general hospital (02) ==
LOC: ER 20:35 → 2ND 20:35 → OBSVTOIN 08-16 00:15 → 2ND 08-16 00:19
PROVIDERS: ADMIT Family Medicine; ATTEND Family Medicine

== ENCOUNTER 2020-08-02 11:18 | Emergency (ER) | payer OTHER, SELFPAY ==
[2020-08-02] VITALS (9 sets, daily range): BP systolic 109–140; BP diastolic 72–95; PULSE 76–126; RESP 17–32; TEMP 37.1–37.2; O2SAT 88–97; BMI 23.6; BMI 25.8
--- NOTE | 2020-08-02 11:51 | HMH.EDUTC ---
[facility] [place] Clinical Impression: Shortness of breath Disposition: Still a Patient Condition on Discharge: Good Referrals: Diana Cordova [Primary Care Provider] - Time of Disposition: 11:50 Medical Decision Making - Chriss Inquiry Pt receiving controlled substance: No Vital Signs: 08/02/20 11:35 Pulse Rate [Right Brachial] 126 H Respiratory Rate 32 H Blood Pressure [Right Arm] 132/92 H Blood Pressure Mean [Right Arm] 105 Blood Pressure Source [Right Arm] Automatic Cuff Blood Pressure Position [Right Arm] Sitting 02 Sat by Pulse Oximetry 88 L Oxygen Delivery Method Room Air Medical Decision Narrative: pt o2 88% hr 126, rr 32 and pt c/o of soa and labored. report to viktor and pt sent to ed for eval [facility] H[place] - General Chief complaint: [facility]gent [facility] Stated complaint: covid symptons Time Seen by Provider: 08/02/20 11:46 Mode of Arrival: Ambulatory Source of Information: Patient Limitations: No Limitations Description of Symptoms (Recalled from Triage Doc. by RN): PATIENT C/O COUGH, BODY ACHES, AND SOA. TESTED FOR COVID ON MONDAY AND WAS NEGATIVE. SYMPTOMS HAVE WORSENED SINCE THEN. NO KNOWN EXPOSURE HEENT Symptoms (Recalled from RN notes): Yes Resp Symptoms (Recalled from RN notes): Yes Skin Symptoms (Recalled from RN notes): No MS Symptoms (Recalled from RN notes): No Functional Status (Recalled from RN notes): WNL - History of Present Illness Provider Complaint: 40 yr old female presents for cough, soa and tiredness. pt states she was tested on and was neg but symptoms continue to become worse. - Related Data Home Medications Medication Instructions Recorded Confirmed Buspirone HCl [Buspar 10mg 10 mg PO BID 08/15/18 08/16/18 tablet] Furosemide [Furosemide 20mg Tab*] 20 mg PO DAILYP PRN 08/15/18 08/16/18 Metoprolol Lilly/Hydrochlorothiaz 25 mg PO DAILY 08/15/18 08/16/18 [Metoprolol ER-Hctz 25-12.5 mg] Meloxicam 15 mg PO DAILY 08/16/18 08/16/18 Naltrexone Microspheres [Vivitrol] 380 mg IM MONTHLY 08/16/18 08/16/18 Pantoprazole Sodium [Protonix 40mg 40 mg PO HS 08/16/18 08/16/18 tablet] Vortioxetine Hydrobromide 10 mg PO DAILY 08/16/18 08/16/18 [Trintellix] buPROPion HCL [Wellbutrin SR 150mg 150 mg PO BID 08/16/18 08/16/18 Tablet] Previous Rx's Medication Instructions Recorded 0.9 % Sodium Chloride [Saline 10 ml IV NEEDED PRN syringe 08/19/18 Flush 10mL syringe] 0.9 % Sodium Chloride [Saline 10 ml IV NEEDED PRN syringe 08/19/18 Flush 10mL syringe] 0.9 % Sodium Chloride [Sod Chlor 25 ml IV NEEDED PRN bag 08/19/18 0.9% 25mL Bag] Ertapenem Sodium [Invanz 1gm Vial] 1 gm IV Q24H vial 08/19/18 Morphine Sulfate [Morphine 2mg/mL 2 mg IV Q5MINP PRN syringe 08/19/18 syringe] Nicotine [Nicoderm 21mg/24hr 21 mg TD DAILYP PRN patch.td24 08/19/18 patch] Ondansetron HCl/Pf [Zofran 4mg/2mL 4 mg IV Q6HP PRN vial 08/19/18 vial] Ondansetron HCl/Pf [Zofran 4mg/2mL 4 mg IV Q8HP PRN vial 08/19/18 vial] Potassium Chloride [Klor-con 20 20 meq PO TID tab 08/19/18 mEq tablet] Promethazine HCl [Phenergan 6.25 mg IV [id number] PRN vial 08/19/18 25mg/mL 1mL vial] Sulfamethoxazole/Trimethoprim 1 each PO BID tab 08/19/18 [Bactrim DS tablet] Tramadol HCl [Ultram 50mg 50 mg PO TID tab 08/19/18 tablet] Vancomycin HCl [Vancomycin 1000mg 1,250 mg IV Q12H vial 08/19/18 Vial] hydroCHLOROthiazide [HCTZ 12.5mg 12.5 mg PO DAILY cap 08/19/18 capsule] Allergies Allergy/AdvReac Type Severity Reaction Status Date / Time No Known Allergies Allergy Verified 11/21/18 20:48 - Worker's Comp Is this a Worker's Comp case?: No [facility] History - Hepatitis A Screen Drug use history?: No High risk sexual behaviors?: No History of sexually transmitted infection?: No Currently employed?: No Childcare worker?: No Do you have indoor plumbing?: Yes Do you have electricity?: Yes Attestation statement:: Th
--- NOTE | 2020-08-02 11:52 | HMH.EDGENADL ---
ED Disposition Clinical Impression: Asthma with exacerbation Qualifiers: Asthma severity: moderate Asthma persistence: persistent Qualified Code(s): J45.41 - Moderate persistent asthma with (acute) exacerbation Disposition: Home, Self-Care Condition on Discharge: Good Instructions: DI for Asthma -- Adult Additional Instructions: Continue using inhaler 4 times a day. Prednisone as prescribed. Return to the emergency department if worsening shortness of breath. Call your primary care provider tomorrow for follow-up. Prescriptions: predniSONE [Prednisone 20mg Tab] 20 mg PO BID #10 tab Transmission Status: Pending to [facility] Referrals: Diana Cordova [Primary Care Provider] - - Critical Care Critical Care Time: No Attestation: On 08/02/20, the high probability of a clinically significant, sudden or life threatening deterioration of the following system(s) required my full and direct attention, intervention and personal management. The time I documented below is in addition to time spent performing reported procedures but includes the following listed in this critical care notation. Medical Decision Making - Medical Records Medical records reviewed: Yes: I reviewed the patient's medical records. - Chriss Inquiry Pt receiving controlled substance: No Vital Signs: 08/02/20 11:35 08/02/20 11:54 08/02/20 12:49 Temperature 98.8 F Temperature Source Oral Pulse Rate Pulse Rate [Right Brachial] 126 H 117 H 102 H Respiratory Rate 32 H 26 H 18 Blood Pressure [Right Arm] 132/92 H 140/95 H 116/76 Blood Pressure Mean [Right Arm] 105 110 89 Blood Pressure Source [Right Arm] Automatic Cuff Automatic Cuff Blood Pressure Position [Right Arm] Sitting Supine 02 Sat by Pulse Oximetry 88 L 97 95 Oxygen Delivery Method Room Air Room Air 08/02/20 13:00 08/02/20 13:30 08/02/20 14:20 Temperature Temperature Source Pulse Rate 88 Pulse Rate [Right Brachial] 101 H 94 H Respiratory Rate 20 18 Blood Pressure [Right Arm] 121/82 129/72 Blood Pressure Mean [Right Arm] 95 91 Blood Pressure Source [Right Arm] Automatic Cuff Automatic Cuff Blood Pressure Position [Right Arm] Sitting Sitting 02 Sat by Pulse Oximetry 96 94 L Oxygen Delivery Method Room Air Room Air 08/02/20 14:43 08/02/20 16:06 Temperature Temperature Source Pulse Rate 90 Pulse Rate [Right Brachial] 91 H Respiratory Rate 18 Blood Pressure [Right Arm] 109/72 L Blood Pressure Mean [Right Arm] 84 Blood Pressure Source [Right Arm] Automatic Cuff Blood Pressure Position [Right Arm] Supine 02 Sat by Pulse Oximetry 95 Oxygen Delivery Method - Lab Data Lab results reviewed: Yes: I reviewed the patient's lab results. Lab Results 08/02/20 12:09: WBC 14.0 H, RBC 4.40, Hgb 13.4, Hct 41.7, MCV 94.8, MCH 30.4, MCHC 32.1, RDW 13.8, Plt Count 421, MPV 7.3 L, Neut % (Auto) 61.3, Lymph % (Auto) 25.0, [place] % (Auto) 6.5, Eos % (Auto) 6.6, Baso % (Auto) 0.6, Neut # (Auto) 8.6 H, Lymph # (Auto) 3.5, [place] # (Auto) 0.9, Eos # (Auto) 0.9 H, Baso # (Auto) 0.1 08/02/20 12:09: Sodium 134 L, Potassium 4.6, Chloride 108 H, Carbon Dioxide 21 L, Anion Gap 9.6, BUN 8, Creatinine 0.80, Estimated Creat Clear 108, Estimated GFR 80, Est GFR ( Amer) 97, Glucose 100, Calcium 9.3, Total Bilirubin 0.3, AST 29, ALT 16, Alkaline Phosphatase 90, Total Protein 8.1, Albumin 4.3, Globulin 1.1 L, Albumin/Globulin Ratio 3.9 H 08/02/20 12:09: Lactate 1.0 08/02/20 12:09: SARS-CoV-2 IgG Ab (Rapid) Negative, SARS-CoV-2 IgM Ab (Rapid) Negative 08/02/20 12:09: Chlamy pneumoniae PCR Not detected, Adenovirus (PCR) Not detected, B. pertussis DNA (PCR) Not detected, Coronavirus OC43 (PCR) Not detected, Coronavirus HKU1 (PCR) Not detected, Coronavirus 229E (PCR) Not detected, SARS-CoV-2 (PCR) Not detected, Coronavirus NL63 (PCR) Not detected, Human Metapneumovir PCR Not detected, Influenza A (H1) PCR Not detected, Influ A (H1N1/09) PCR Not detected
--- NOTE | 2020-08-02 12:02 | XR_ITS ---
PROCEDURE: XR CHEST PORTABLE Referring Doctor: Jayjay Branch Patient Age:40Y CLINICAL HISTORY: shortness of breath smoker. Cough. Negative pelvis test several days ago feels worse now COMPARISON: CR CXR CHEST(2 VIEWS-NOT PORTABLE) from 11/08/2012 CR CXR CHEST(2 VIEWS-NOT PORTABLE) from 10/23/2015 FINDINGS: AP portable upright CXR is compared to September 2015 No acute findings. But no significant change Lungs appear mildly hyperexpanded but clear Cardiomediastinal silhouette and pulmonary vascularity are within normal limits. The lungs are clear without infiltrates, suspicious nodules, or pleural effusions.. Minimal stable scarring right and left lung the apex No acute bony abnormalities.. IMPRESSION: Stable chest . Lungs clear with nothing definitely acute. Dictated by: Jose Guadalupe Sheehan MD 08/02/2020 21:10 Jose Guadalupe Sheehan MD in [place] 08/02/2020 21:10
[2020-08-02 12:17] LABS: Bordetella Pertussis Not Detected (NotDetected); Chlamydophila Pneumoniae, PCR Not Detected (NotDetected); Coronavirus 19, PCR Not Detected (NotDetected); Human Metapneumovirus Not Detected (NotDetected); Influenza A, PCR Not Detected (NotDetected); Influenza AH1, 2009 Not Detected (NotDetected); Influenza AH1, PCR Not Detected (NotDetected); Influenza AH3,PCR Not Detected (NotDetected); Influenza B, PCR Not Detected (NotDetected); Mycoplasma Pneumoniae, PCR Not Detected (NotDetected); Parainfluenza 1, PCR Not Detected (NotDetected); Parainfluenza 2, PCR Not Detected (NotDetected); Parainfluenza 3, PCR Not Detected (NotDetected); Parainfluenza 4, PCR Not Detected (NotDetected); Respiratory Syncytial Virus Not Detected (NotDetected); Rhinovirus/Enterovirus Not Detected (NotDetected)
[2020-08-02 12:19] LABS: Adenovirus,PCR Not Detected (NotDetected); Coronavirus 229E Not Detected (NotDetected); Coronavirus NL63 Not Detected (NotDetected); Coronavirus OC43 Not Detected (NotDetected); Coronovirus HKU1,PCR Not Detected (NotDetected)
[2020-08-02 12:20] LABS: Basophils # 0.1 K/mm3 (0-0.2); Basophils % 0.6 % (0.1-2.0); Eosinophils # 0.9 K/mm3 (0.0-0.4); Eosinophils % 6.6 % (0.1-12.0); Hematocrit 41.7 % (37.0-47.0); Hemoglobin 13.4 g/dL (12.2-16.2); Lymphocytes # 3.5 K/mm3 (0.7-4.5); Mean Corpuscular HGB Conc 32.1 g/dL (31.8-35.4); Mean Corpuscular Hemoglobin 30.4 pg (27.0-31.2); Mean Corpuscular Volume 94.8 fl (81-99); Mean Platelet Volume 7.3 fl (7.4-10.4); Monocytes # 0.9 K/mm3 (0.1-1.0); Monocytes % 6.5 % (1.7-9.3); Neutrophils # 8.6 K/mm3 (1.8-7.8); Neutrophils % 61.3 % (37.0-80.0); Platelet Count 421 K/mm3 (142-424); Red Cell Distribution Width 13.8 % (11.5-17.5)
[2020-08-02 12:26] LABS: Chloride 108 mmol/L (98-107); Potassium 4.6 mmoL/L (3.5-5.1); Sodium 134 mmol/L (136-145)
[2020-08-02 12:28] LABS: Alanine Aminotransferase 16 U/L (12-78); Aspartate Amino Transferase 29 U/L (14-36); Blood Urea Nitrogen 8 mg/dl (7-17); Creatinine Clearance Estimated 108 mL/min (50-200); Estimated Glomerular Filt Rate 80 ml/min (>60); GFR (African American) 97 ML/MIN (>60)
[2020-08-02 12:29] LABS: Albumin Level 4.3 g/dl (3.5-5.0); Alkaline Phosphatase 90 U/L (38-126); Anion Gap 9.6 mEq/L (5-15); Bilirubin,Total 0.3 mg/dl (0.2-1.3); Calcium 9.3 mg/dl (8.4-10.2); Carbon Dioxide 21 mmol/L (22.0-30.0); Glucose 100 mg/dl (74-100); Total Protein,Serum 8.1 g/dl (6.3-8.2)
[2020-08-02 12:49] LABS: Albumin/Globulin Ratio 3.9 (1.1-1.8); Coronavirus 19 IgG Antibody Negative (Negative); Coronavirus 19 IgM Antibody Negative (Negative); Globulin 1.1 g/dL (1.3-3.2)
--- NOTE | 2020-08-02 16:21 | PC.NURSE ---
PT UP WALKING AROUND DEPT O2 SATS 94% PER PULSE OX
== END 2020-08-02 17:05 | disposition home or self-care (01) ==
LOC: UTC 11:22 → ER 11:40
PROVIDERS: Emergency Provider Emergency Medicine; PCP Family Medicine
DX: Z20.828 Contact with and (suspected) exposure to other viral communicable diseases (principal); J45.41 Moderate persistent asthma with (acute) exacerbation; J44.9 Chronic obstructive pulmonary disease, unspecified
CPT/HCPCS: 71045; 80053; 83605; 85025; 86328; 87040; 87581; 87633; 87798; 96374; 99284

== ENCOUNTER 2020-08-22 20:47 | Emergency (ER) | payer OTHER, SELFPAY ==
[2020-08-22 20:57] VITALS: BP 146/87; PULSE 91; RESP 19; TEMP 36.9; O2SAT 97; BMI 25.8
--- NOTE | 2020-08-22 21:13 | XR_ITS ---
PROCEDURE: XR CHEST 2V Referring Doctor: Jayla Leon Patient Age:40Y CLINICAL HISTORY: cough congestion short of breath sick for several weeks is been on antibiotics COMPARISON: CR CXR CHEST(2 VIEWS-NOT PORTABLE) from 11/08/2012 CR CXR CHEST(2 VIEWS-NOT PORTABLE) from 10/23/2015 CR XR CHEST PORTABLE from 08/02/2020 FINDINGS: PA and lateral chest performed today and compared to previous chest film 08/02/2020 The lungs appear clear with no focal infiltrate but no consolidate-or discrete pneumonia. Minimal chronic changes are again seen at the apices similar to 2016 CXR. But no pneumothorax but no pleural effusion The heart, issac, mediastinal structures appear stable in satisfactory. Normal pulmonary vascularity but chest wall in T-spine appear stable in satisfactory. Patient has increased size since 2016. IMPRESSION: Lungs clear with nothing definitely acute. Stable chest Dictated by: Jose Guadalupe Sheehan MD 08/22/2020 21:54 Jose Guadalupe Sheehan MD in [place] 08/22/2020 21:54
--- NOTE | 2020-08-22 21:13 | HMH.EDUTC ---
[facility] [place] Impression: Bronchitis Asthma with exacerbation Qualifiers: Asthma severity: unspecified severity Asthma persistence: unspecified Qualified Code(s): J45.901 - Unspecified asthma with (acute) exacerbation Disposition: Home, Self-Care Condition on Discharge: Good Instructions: DI for Asthma -- Adult, Levofloxacin, Acute Bronchitis Additional Instructions: ? Start antibiotic today. Be sure to complete entire prescription even if feeling better ? Monitor temp. Tylenol every 4 hours as needed and / or ibuprofen every 6 hours as needed ( As long as your primary care physician has told you that it ok to take both. For fever/aches/pains ER if no less than 101 despite Tylenol or Motrin ? Humidifier/vaporizer or hot steamy shower ? Inhaler every 4-6 hours as needed like we discussed. If unsure how to use it, ask pharmacist to demonstrate how. Should help open airways and improve cough, wheezing, and shortness of breath ? Mucinex during the day for your cough and cough suppressant only at night. Be sure to drink lots of water. Insurance may not cover a prescriptions for mucinex. Might be cheaper to get 400mg tablets and take 2 tablet in the morning, mid-day and evening with lots of water. *Start steroid tomorrow. Helps with inflammation therefore, cough and wheezing. Follow directions on the package. Reviewed side effects. Patient reports taking them before. Follow up IMMEDIATELY for new or worsening of symptoms OR no noticeable improvement over the next 48-72 hours. 911 immediately for any life threatening symptoms such as chest pain or difficulty breathing Prescriptions: levoFLOXacin [Levaquin 500mg tab] 500 mg PO DAILY #7 tab Transmission Status: Pending to [email or web address][id number] predniSONE [Prednisone 20mg Tab] 20 mg PO BID 5 Days #10 tab Transmission Status: Pending to [email or web address] #[id number] Referrals: Diana Mina [Primary Care Provider] - As needed Time of Disposition: 21:56 Medical Decision Making - Chriss Inquiry Pt receiving controlled substance: No Chriss was queried for this patient: No Vital Signs: 08/22/20 20:57 Temperature 98.4 F Temperature Source Oral Pulse Rate [Radial] 91 H Respiratory Rate 19 Blood Pressure [Right Arm] 146/87 H Blood Pressure Mean [Right Arm] 106 Blood Pressure Source [Right Arm] Automatic Cuff Blood Pressure Position [Right Arm] Sitting 02 Sat by Pulse Oximetry 97 Oxygen Delivery Method Room Air Orders (Tests/Meds): ED MEDICATIONS Discontinued Medications Generic Name Dose Route Start Last Admin Trade Name Liam PRN Reason Stop Dose Admin Albuterol/Ipratropium 3 ml 08/22/20 21:13 Albuterol/Ipratropium 3 Ml Neb IH 08/22/20 21:14 ONCE ONE ORDERS Category Date Time Status XR chest 2V Stat Exams 08/22/20 21:13 Taken - Radiology Data #1 Image(s): Chest Image Reviewed: Yes I reviewed the patient's radiology image w/the ED provider Discussed with Dr Gonzalez no acute finding Medical Decision Narrative: Recommended transfer to Ed for further treatment and evaluation and patient refused state that after neb she is feeling much better and feels like he is able to breath much better. Patient informed that neb may wear off and she may feel short of breath again and recommended transfer and she still declined, Medication discussed with Pharmacy and agreed Patient recently was treated with azithromycin and augmentin and did not clear up bronchitis therefore will try Levaquin 500mg daily for 7 days and have patient continue to use inhaler at home and follow up on Monday with Family Doctor for re-evaluation and discuss home nebulizer. Patient states that she is breathing much better and wheezing now diminished Again discussed transfer to the ED and patient refused transfer Patient educated to follow up immediately and straight to the ER if any worsening of symptoms or shortness of breath returns Patient aware of risks and still declined
[2020-08-22 21:53] VITALS: BP 146/87; PULSE 91; RESP 19; TEMP 36.9; O2SAT 97
== END 2020-08-22 22:04 | disposition home or self-care (01) ==
PROVIDERS: Emergency Provider Nurse Practitioner; PCP Family Medicine
DX: J20.9 Acute bronchitis, unspecified (principal); J45.901 Unspecified asthma with (acute) exacerbation; R01.1 Cardiac murmur, unspecified; J44.9 Chronic obstructive pulmonary disease, unspecified; K21.9 Gastro-esophageal reflux disease without esophagitis; I10 Essential (primary) hypertension; F17.210 Nicotine dependence, cigarettes, uncomplicated; Z79.899 Other long term (current) drug therapy
CPT/HCPCS: 71046; 96372; 99202

== ENCOUNTER → 2023-03-09 16:01 | Outpatient (CLI) | payer OTHER, SELFPAY ==
[2023-03-09 18:40] LABS: Alanine Aminotransferase 14 U/L (12-78); Albumin Level 4.4 g/dl (3.5-5.0); Albumin/Globulin Ratio 1.5 (1.1-1.8); Alkaline Phosphatase 81 U/L (38-126); Anion Gap 15.1 mEq/L (5-15); Aspartate Amino Transferase 23 U/L (14-36); Bilirubin,Total 0.3 mg/dl (0.2-1.3); Blood Urea Nitrogen 9 mg/dl (7-17); Calcium 9.5 mg/dl (8.4-10.2); Carbon Dioxide 26 mmol/L (22.0-30.0); Chloride 103 mmol/L (98-107); Chol/HDL Ratio 2.3 (1-3.5); Cholesterol 195 mg/dl (140-200); Estimated Glomerular Filt Rate 79 ml/min (>60); GFR (African American) 96 ML/MIN (>60); Globulin 2.9 g/dL (1.3-3.2); Glucose 91 mg/dl (74-100); HDL Cholesterol 83 mg/dl (40-60); Potassium 4.1 mmoL/L (3.5-5.1); Sodium 140 mmol/L (136-145); Total Protein,Serum 7.3 g/dl (6.3-8.2); Triglycerides 152 mg/dl (30-150); VLDL Cholesterol 30 mg/dL (0-40)
[2023-03-09 18:46] LABS: Basophils % 0.4 % (0.1-2.0); Eosinophils # 0.2 K/mm3 (0.0-0.4); Eosinophils % 2.7 % (0.1-12.0); Hemoglobin 11.3 g/dL (12.2-16.2); Lymphocytes # 2.1 K/mm3 (0.7-4.5); Lymphocytes % 31.5 % (10-50); Mean Corpuscular HGB Conc 30.5 g/dL (31.8-35.4); Mean Corpuscular Hemoglobin 29.7 pg (27.0-31.2); Mean Corpuscular Volume 97.2 fl (81-99); Mean Platelet Volume 8.7 fl (7.4-10.4); Monocytes # 0.4 K/mm3 (0.1-1.0); Monocytes % 6.1 % (1.7-9.3); Neutrophils % 59.3 % (37.0-80.0); Platelet Count 619 K/mm3 (142-424); Red Blood Count 3.81 M/mm3 (4.20-5.40); Red Cell Distribution Width 14.2 % (11.5-17.5); White Blood Count 6.7 K/mm3 (4.8-10.8)
[2023-03-09 18:52] LABS: Direct LDL Cholesterol 90.55 mg/dL (100-129)
[2023-03-09 19:10] LABS: Hemoglobin A1C 5.2 % (4.0-6.0)
[2023-03-09 19:11] LABS: Thyroid Stimulating Hormone 1.28 uIU/mL (0.465-4.68)
[2023-03-09 19:22] LABS: 25-OH Vitamin D, Total 40.9 ng/mL (30-100)
[2023-03-09 19:30] LABS: Vitamin B12 865 pg/mL (239-931)
== END ==
PROVIDERS: PCP Nurse Practitioner; Visit Provider Nurse Practitioner
DX: J30.9 Allergic rhinitis, unspecified (principal); J45.909 Unspecified asthma, uncomplicated; K21.9 Gastro-esophageal reflux disease without esophagitis; M81.0 Age-related osteoporosis without current pathological fracture; Z13.1 Encounter for screening for diabetes mellitus; Z13.220 Encounter for screening for lipoid disorders; Z79.899 Other long term (current) drug therapy
CPT/HCPCS: 80053; 80061; 82306; 82607; 83036; 84443; 85025

== ENCOUNTER → 2023-04-11 09:09 | Outpatient (CLI) | payer OTHER, SELFPAY ==
--- NOTE | 2023-04-11 09:22 | XR_ITS ---
FINAL REPORT TECHNIQUE: Bone densitometry calculations of the lumbar spine and left hip were obtained. CLINICAL HISTORY: . osteoporosis, frequent fractures FINDINGS: Using L1-4, the bone mineral density of the spine is 0.866 g/cm2, corresponding to T-score of -1.6 and a Z score of -1.3. This is within the range of osteopenia. Using the left hip, the bone mineral density of the femoral neck is 0.588 g/cm2, corresponding to a T-score of --2.4 and a Z-score of --2.0. This is within the range of osteopenia. NOTE: T-score: Standard deviation compared with peak bone mass of young adult mean. *Following the recommendations of the International Society of Bone densitometry, classification of hip BMD is based on the lower of two T-scores; total hip or femoral neck. IMPRESSION: 1. Bone mineral density of the lumbar spine within the range of osteopenia. 2. Bone mineral density of the left femoral neck within the range of osteopenia. Reviewed, Interpreted and Dictated by Deepika Madrid MD Transcribed by Jessy Thompson Authenticated and [facility]
--- NOTE | 2023-04-11 09:22 | CT_ITS ---
FINAL REPORT TECHNIQUE: Thin section axial CT images with coronal and sagittal reformats were performed after the administration of IV contrast. This study was performed with techniques to keep radiation doses as low as reasonably achievable (ALARA). Individualized dose reduction techniques using automated exposure control or adjustment of mA and/or kV according to the patient''s size were employed. CLINICAL HISTORY: cervical LAD COMPARISON: None FINDINGS: No adenopathy or mass lesion is present . Salivary glands are normal. The nasopharynx and oropharynx are unremarkable. Larynx is unremarkable. Thyroid gland is unremarkable. IMPRESSION: No acute abnormality, no adenopathy identified in the neck. Reviewed, Interpreted and Dictated by Deepika Madrid MD Transcribed by Jenny Yap Authenticated and [facility]
--- NOTE | 2023-04-11 09:22 | MM_ITS ---
PROCEDURE INFORMATION: Exam: Bilateral Screening 3D Mammography Exam date and time: 04/11/2023 9:17 AM Age: 43 years old Clinical indication: Screening mammogram. No personal or family history of breast cancer TECHNIQUE: Imaging protocol: Bilateral Screening tomosynthesis and 2D mammography including computer-aided detection (CAD) when performed. COMPARISON: No relevant prior studies available. FINDINGS: MAMMOGRAPHY: Breast composition: The breast is heterogeneously dense, which may obscure small masses. Mass: 2 masses, 1 within the slightly lower outer right middle 1/3 and the 2nd in the upper outer left middle 1/3 measuring 7 mm should be further assessed with spot views in CC/MLO projection. Ultrasound should also be performed. Architectural distortion: No new or suspicious architectural distortion. Calcifications: No new or suspicious calcifications are present Asymmetric density: No new or suspicious asymmetric density is present Skin thickening: None. Axillary adenopathy: None. IMPRESSION: 2 masses, 1 within the slightly lower outer right middle 1/3 and the 2nd in the upper outer left middle 1/3 measuring 7 mm should be further assessed with spot views in CC/MLO projection. Ultrasound should also be performed. ASSESSMENT: BI-RADS category 0: Incomplete-need additional imaging evaluation and/or prior mammograms for comparison.
== END ==
PROVIDERS: PCP Nurse Practitioner; Visit Provider Nurse Practitioner
DX: Z12.31 Encounter for screening mammogram for malignant neoplasm of breast (principal); R59.0 Localized enlarged lymph nodes; M81.0 Age-related osteoporosis without current pathological fracture
CPT/HCPCS: 70491; 77063; 77067; 77080; Q9967

== ENCOUNTER → 2023-05-03 13:51 | Outpatient (CLI) | payer OTHER, SELFPAY ==
--- NOTE | 2023-05-03 13:53 | MM_ITS ---
PROCEDURE INFORMATION: Exam: US Right Breast, Complete US Left Breast, Complete MG Bilateral Diagnostic Breast Tomosynthesis Exam date and time: 05/03/2023 2:17 PM Age: 43 years old Clinical indication: Patient recalled for further evaluation of bilateral breast masses TECHNIQUE: Imaging protocol: Complete ultrasound of all four quadrants of the right breast and the retroareolar regions, including ultrasound of the axilla when performed. Complete ultrasound of all four quadrants of the left breast and the retroareolar regions, including ultrasound of the axilla when performed. Bilateral Diagnostic tomosynthesis and 2D mammography including computer-aided detection (CAD) when performed. Unilateral or bilateral exam. COMPARISON: MG MM DIG MAMM BI DX W/CAD 05/03/2023 1:52 PM FINDINGS: MAMMOGRAPHY: Digital diagnostic spot compression views of the right breast and 90 degree lateral view of the right breast demonstrate a persistent well-circumscribed lobulated 0.7 cm mass Digital diagnostic spot compression views of the left breast and 90 degree lateral view of the left breast demonstrate normal overlapping fibroglandular structures without persistent mass or asymmetry identified. ULTRASOUND: Sonographic images of both breasts including the retroareolar regions, all 4 quadrants and the axilla do not demonstrate any solid masses. Minimal subcentimeter cystic change is present bilaterally this includes a cluster of cysts in the right 8 o'clock axis 2 cm from the nipple corresponding to the mass on mammography and having a combined dimension 0.5 cm. No architectural distortion or acoustical shadowing. No skin thickening or axillary adenopathy. IMPRESSION: Mass on screening mammography on the right corresponds to underlying cystic change sonographically. Minimal subcentimeter cystic change in the left breast. There is no mammographic evidence of malignancy.Annual bilateral mammographic screening is recommended unless otherwise clinically indicated. ASSESSMENT: BI-RADS Category 2: Benign
== END ==
PROVIDERS: PCP Counselor Professional; Visit Provider Nurse Practitioner
DX: R92.8 Other abnormal and inconclusive findings on diagnostic imaging of breast (principal)
CPT/HCPCS: 76641; 77062; 77066; G0279

== ENCOUNTER → 2023-08-07 08:34 | Outpatient (CLI) | payer OTHER, SELFPAY ==
[2023-08-07 17:56] LABS: Coronavirus 19, PCR Not Detected (NotDetected); Influenza A, PCR Not Detected (NotDetected); Influenza B, PCR Not Detected (NotDetected)
== END ==
PROVIDERS: PCP Nurse Practitioner; Visit Provider Nurse Practitioner
DX: J06.9 Acute upper respiratory infection, unspecified (principal)
CPT/HCPCS: 87636

== ENCOUNTER → 2023-09-07 23:34 | Outpatient (CLI) | payer OTHER, SELFPAY ==
[2023-09-07 18:22] LABS: Coronavirus 19, PCR Not Detected (NotDetected); Influenza A, PCR Not Detected (NotDetected); Influenza B, PCR Not Detected (NotDetected)
== END ==
PROVIDERS: PCP Nurse Practitioner; Visit Provider Nurse Practitioner
DX: J06.9 Acute upper respiratory infection, unspecified (principal)
CPT/HCPCS: 87636

== ENCOUNTER 2023-10-26 23:05 | Outpatient (CLI) | payer OTHER, SELFPAY | END 2023-10-26 23:59 | LOC: LAB.DROPOF 23:05 | PROVIDERS: PCP Nurse Practitioner; Visit Provider Nurse Practitioner | DX: L02.512 Cutaneous abscess of left hand (principal); L03.114 Cellulitis of left upper limb | CPT/HCPCS: 87070; 87205 ==

== ENCOUNTER 2023-12-21 16:04 | Outpatient (CLI) | payer OTHER, SELFPAY ==
--- NOTE | 2023-12-21 16:08 | XR_ITS ---
FINAL REPORT CLINICAL HISTORY: multiple rib fractures, bilateral pneumothorax COMPARISON: None FINDINGS: The cardiac silhouette is normal. The mediastinal and hilar structures are unremarkable. The lungs are clear. There is no pneumothorax. IMPRESSION: No acute process. Reviewed, Interpreted and Dictated by Hernesto Colorado MD Transcribed by REGINA Morris Authenticated and . [facility]
== END 2023-12-21 23:59 ==
LOC: RAD 16:05
PROVIDERS: PCP Nurse Practitioner; Visit Provider Nurse Practitioner
DX: J93.9 Pneumothorax, unspecified (principal); S22.42XA Multiple fractures of ribs, left side, initial encounter for closed fracture; F17.210 Nicotine dependence, cigarettes, uncomplicated
CPT/HCPCS: 71046

== ENCOUNTER 2023-12-28 14:31 | Outpatient (CLI) | payer OTHER, SELFPAY ==
--- NOTE | 2023-12-28 14:32 | CA_ITS ---
FINAL REPORT TECHNIQUE: Sonographic images of the veins of the right upper extremity were obtained from axilla to antecubital fossa. Additionally, images of the internal jugular vein and subclavian vein were also obtained. CLINICAL HISTORY: LUE edema with left elbow pain, IV in AOI 1 month ago FINDINGS: The veins of the right upper extremity are compressible from axilla to antecubital fossa. There is superficial venous thrombus involving the ventral forearm. No other venous thrombus is identified. The left internal jugular vein and subclavian vein are also patent. IMPRESSION: Superficial venous thrombus involving the ventral forearm. No other venous thrombus is identified. Reviewed, Interpreted and Dictated by Dominic Waller III, MD Transcribed by Laura Rand Authenticated and [facility]
== END 2023-12-28 23:59 ==
LOC: RT 14:31
PROVIDERS: PCP Nurse Practitioner; Visit Provider Nurse Practitioner
DX: R60.0 Localized edema (principal); M25.522 Pain in left elbow; D48.5 Neoplasm of uncertain behavior of skin
CPT/HCPCS: 93971

== ENCOUNTER 2024-01-02 14:12 | Outpatient (CLI) | payer OTHER, SELFPAY ==
[2024-01-02 18:21] LABS: MANUAL DIFFERENTIAL MANUAL DIFFERENTIAL (MANUAL DIFF)
[2024-01-02 18:42] LABS: Basophils # 0.1 K/mm3 (0-0.2); Basophils % 0.7 % (0.1-2.0); Eosinophils # 0.3 K/mm3 (0.0-0.4); Eosinophils % 3.8 % (0.1-12.0); Hematocrit 40.3 % (37.0-47.0); Hemoglobin 12.4 g/dL (12.2-16.2); Lymphocytes # 2.7 K/mm3 (0.7-4.5); Lymphocytes % 31.8 % (10-50); Mean Corpuscular HGB Conc 30.6 g/dL (31.8-35.4); Mean Corpuscular Hemoglobin 30.9 pg (27.0-31.2); Mean Corpuscular Volume 100.8 fl (81-99); Mean Platelet Volume 8.3 fl (7.4-10.4); Monocytes # 0.4 K/mm3 (0.1-1.0); Monocytes % 4.3 % (1.7-9.3); Neutrophils % 59.3 % (37.0-80.0); Platelet Count 379 K/mm3 (142-424); Red Cell Distribution Width 14.9 % (11.5-17.5); White Blood Count 8.5 K/mm3 (4.8-10.8)
[2024-01-02 18:52] LABS: Alanine Aminotransferase 15 U/L (12-78); Albumin Level 4.5 g/dl (3.5-5.0); Albumin/Globulin Ratio 1.9 (1.1-1.8); Alkaline Phosphatase 60 U/L (38-126); Anion Gap 11.5 mEq/L (5-15); Aspartate Amino Transferase 19 U/L (14-36); Bilirubin,Total 0.2 mg/dl (0.2-1.3); Blood Urea Nitrogen 10 mg/dl (7-17); Calcium 9.3 mg/dl (8.4-10.2); Carbon Dioxide 26 mmol/L (22.0-30.0); Chloride 106 mmol/L (98-107); Estimated Glomerular Filt Rate 79 ml/min (>60); GFR (African American) 95 ML/MIN (>60); Globulin 2.4 g/dL (1.3-3.2); Glucose 70 mg/dl (74-100); Potassium 3.5 mmoL/L (3.5-5.1); Sodium 140 mmol/L (136-145); Total Protein,Serum 6.9 g/dl (6.3-8.2)
[2024-01-02 19:40] LABS: Lymphocytes % 35 % (10-50); Macrocytosis 1+; Monocytes % 2 % (2-9); Neutrophils % 62 % (42-76); Platelet Estimate Normal; Total Cells Counted 100
== END 2024-01-02 23:59 | disposition home or self-care (01) ==
LOC: LAB.DROPOF 01-03 14:13
PROVIDERS: PCP Family Medicine; Visit Provider Family Medicine
DX: D64.9 Anemia, unspecified (principal); M81.0 Age-related osteoporosis without current pathological fracture; F41.1 Generalized anxiety disorder
CPT/HCPCS: 80053; 85007; 85014; 85018; 85048; 85049

== ENCOUNTER 2024-01-08 07:16 | Outpatient (CLI) | payer OTHER, SELFPAY ==
--- NOTE | 2024-01-08 07:17 | CT_ITS ---
FINAL REPORT TECHNIQUE: Axial images were obtained through the chest without contrast. CLINICAL HISTORY: SOA COMPARISON: None FINDINGS: There are calcified right hilar and paratracheal lymph nodes present. Biapical pleural and parenchymal scarring is present. The heart size is normal. There is no pericardial or pleural effusion. Limited images of the upper abdomen are unremarkable. There is a 4 mm nodule present in the medial right lower lobe, best seen on image #170 of series 3. No other nodules, masses, or infiltrates are visualized. IMPRESSION: 4 mm nodule, medial right lower lobe as described. As per Fleischner criteria suggest 1 year follow-up chest CT. Biapical and parenchymal scarring is present. Reviewed, Interpreted and Dictated by Shun Simpson MD Transcribed by Jenny Yap Authenticated and . [facility]
== END 2024-01-08 23:59 | disposition home or self-care (01) ==
LOC: RAD 07:17
PROVIDERS: PCP Nurse Practitioner; Visit Provider Nurse Practitioner
DX: R07.1 Chest pain on breathing (principal); R06.02 Shortness of breath; S22.42XA Multiple fractures of ribs, left side, initial encounter for closed fracture; W19.XXXA Unspecified fall, initial encounter; J98.19 Other pulmonary collapse; F17.210 Nicotine dependence, cigarettes, uncomplicated
CPT/HCPCS: 71250

== ENCOUNTER 2024-01-12 14:51 | Outpatient (RCR) | payer OTHER, SELFPAY | END 2024-01-12 14:55 | disposition home or self-care (01) | LOC: PT 14:51 | PROVIDERS: Visit Provider Nurse Practitioner | DX: R07.1 Chest pain on breathing (principal); S22.42XA Multiple fractures of ribs, left side, initial encounter for closed fracture; D64.9 Anemia, unspecified; M81.0 Age-related osteoporosis without current pathological fracture ==

== ENCOUNTER 2024-02-07 10:27 | Outpatient (CLI) | payer OTHER, SELFPAY | END 2024-02-07 23:59 | disposition home or self-care (01) | LOC: LAB.DROPOF 02-09 10:28 | PROVIDERS: PCP Nurse Practitioner; Visit Provider Nurse Practitioner | DX: N10 Acute pyelonephritis (principal); B96.29 Other Escherichia coli [E. coli] as the cause of diseases classified elsewhere | CPT/HCPCS: 87086; 87088; 87186 ==

== ENCOUNTER 2024-02-13 14:51 | Outpatient (CLI) | payer OTHER, SELFPAY ==
--- NOTE | 2024-02-13 14:55 | XR_ITS ---
FINAL REPORT CLINICAL HISTORY: left-sided chest wall pain COMPARISON: 08/22/2020 FINDINGS: TWO-VIEW CHEST The heart size is normal. The mediastinum is normal. The lungs are clear. There is no pneumothorax. IMPRESSION: No acute cardiopulmonary process. Reviewed, Interpreted and Dictated by Shun Simpson MD Transcribed by Jessy Thompson Authenticated and [facility]
[2024-02-13 17:52] LABS: Coronavirus 19, PCR Not Detected (NotDetected); Influenza A, PCR Not Detected (NotDetected); Influenza B, PCR Not Detected (NotDetected)
== END 2024-02-13 23:59 | disposition home or self-care (01) ==
LOC: RAD 14:52
PROVIDERS: PCP Nurse Practitioner; Visit Provider Nurse Practitioner
DX: R07.89 Other chest pain (principal); J40 Bronchitis, not specified as acute or chronic; J06.9 Acute upper respiratory infection, unspecified
CPT/HCPCS: 71046; 87636

== ENCOUNTER 2024-02-15 09:05 | Outpatient (CLI) | payer OTHER, SELFPAY ==
--- NOTE | 2024-02-15 09:10 | XR_ITS ---
FINAL REPORT CLINICAL HISTORY: osteoporosis COMPARISON: 04/11/2023 FINDINGS: Using L1-4, the bone mineral density of the spine is 0.861 g/cm2, corresponding to T-score of -1.7, consistent with osteopenia. Previously was 0.866 g/cm? with T-score of -1.6. Using the left hip, the bone mineral density of the femoral neck is 0.599 g/cm2, corresponding to a T-score of -2.8, consistent with osteoporosis. Previously was 0.609 g/cm? with T-score of -2.7. Using the right hip, the bone mineral density of the femoral neck is 0.569 g/cm2, corresponding to a T-score of -2.5, consistent with osteoporosis. Previously was 0.601 g/cm? with T-score of -2.2. FRAX not reported because some T-score at or below -2.5, patient treated for osteoporosis. NOTE: T-score: Standard deviation compared with peak bone mass of young adult mean. *Following the recommendations of the International Society of Bone densitometry, classification of hip BMD is based on the lower of two T-scores; total hip or femoral neck. IMPRESSION: Diminished bone mineral density consistent with osteoporosis. Reviewed, Interpreted and Dictated by Shun Simpson MD Transcribed by Kristyn Dumont Authenticated and [facility]
== END 2024-02-15 23:59 | disposition home or self-care (01) ==
LOC: RAD 09:06
PROVIDERS: PCP Nurse Practitioner; Visit Provider Nurse Practitioner
DX: M81.0 Age-related osteoporosis without current pathological fracture (principal)
CPT/HCPCS: 77080

== ENCOUNTER 2024-05-14 07:38 | Outpatient (CLI) | payer OTHER, SELFPAY ==
--- NOTE | 2024-05-14 07:38 | MM_ITS ---
PROCEDURE INFORMATION: Exam: MG Bilateral Screening 3D Mammography Exam date and time: 05/14/2024 7:51 AM Age: 44 years old Clinical indication: Screening examination TECHNIQUE: Imaging protocol: Bilateral Screening tomosynthesis and 2D mammography including computer-aided detection (CAD) when performed. COMPARISON: 1. MG MM DIG MAMM BI DX W/CAD 05/03/2023 1:52 PM 2. MG MM DIG SCREENING MAMM BI W/CAD 04/11/2023 9:17 AM FINDINGS: MAMMOGRAPHY: Breast composition: There are scattered areas of fibroglandular density. Mass: None. Architectural distortion: None. Calcifications: No suspicious calcifications. Asymmetric density: None. Skin thickening: None. Axillary adenopathy: None. IMPRESSION: No mammographic evidence of malignancy. Annual screening is recommended unless otherwise clinically indicated. ASSESSMENT: BI-RADS Category 1: Negative
== END 2024-05-14 23:59 | disposition home or self-care (01) ==
LOC: RAD 07:38
PROVIDERS: PCP Nurse Practitioner; Visit Provider Nurse Practitioner
DX: Z12.31 Encounter for screening mammogram for malignant neoplasm of breast (principal); N60.19 Diffuse cystic mastopathy of unspecified breast
CPT/HCPCS: 77063; 77067

== ENCOUNTER 2024-06-13 10:13 | Outpatient (CLI) | payer OTHER, SELFPAY | END 2024-06-13 23:59 | disposition home or self-care (01) | LOC: RT 10:13 | PROVIDERS: PCP Nurse Practitioner; Visit Provider Internal Medicine Pulmonary Disease | DX: R06.09 Other forms of dyspnea (principal) | CPT/HCPCS: 94060; 94618; 94726; 94729 ==

== ENCOUNTER 2024-06-17 11:00 | Outpatient (RCR) | payer OTHER, SELFPAY ==
--- NOTE | 2024-05-21 15:58 | HMH.OTOPEV ---
OT Inpatient Evaluation Rehab OT Outpatient Eval Start: 05/21/24 15:46 Freq: Status: Active Protocol: Document 05/21/24 15:46 [email or web address] (Rec: 05/21/24 15:55 [email or web address] [id number]) E-signed By Katia Joyce, OT Outpatient Therapy Subjective History Subjective History 44 year old female referred to skilled OP OT services for L shld pain. Patient stated that she woke up on March 17 2024 with pain in her L shld and limited mobility. No injuries occured that she is aware of. No x-rays or MRI completed at this time. Chief Complaint Pain,Weakness Symptom Type Ache Symptoms Relieved By Nothing Symptoms Aggravated By Physical Activity Prior Functional Limitations None Current Functional Limitations None,Reaching,Lifting, Recreation Activity Symptom Description Constant and Continuous Level of pain today (0-10) 7 Pain scale - at its best (0-10) 7 Pain scale - at its worst (0-10) 7 Shoulder/Elbow Eval Shoulder Objective Measurements Shoulder ROM Left Shoulder Abduction Active Range of 10 Motion (degrees) Shoulder Abduction Passive Range of 60 Motion (degrees) Shoulder Flexion Active Range of Motion 20 (degrees) Query Text: Shoulder Flexion Passive Range of Motion 80 (degrees) Shoulder External Rotation Active Range 0 of Motion (degrees) Shoulder External Rotation Passive Range 0 of Motion (degrees) Shoulder Internal Rotation Active Range 0 of Motion (degrees) Shoulder Internal Rotation Passive Range 0 of Motion (degrees) pain with active ROM shoulder exam left standard Shoulder MMT Upper Trapezius/Levator Scapulae 2- Poor- Shoulder Abduction Strength Grade 2- Poor- Shoulder Extension Strength Grade 2- Poor- Shoulder Flexion Strength Grade 2- Poor- Shoulder Horizontal Abduction Strength 2- Poor- Grade Shoulder Horizontal Adduction Strength 2- Poor- Grade Infraspinatus/Teres Minor Strength Grade 2- Poor- Shoulder External Rotation Strength 2- Poor- Grade Shoulder Internal Rotation Strength 2- Poor- Grade Shoulder Special Tests impingement sign present shoulder exam left standard Shoulder Walton-Adalberto Impingement Positive Left Test Elbow Objective Measurements QuickDASH Activities Please rate your ability to do the following activities in the last week by selecting the number below the appropriate response. 1. Open a tight or new jar. Moderate difficulty 2. Do heavy mortgage servicing specialist (e.g., wash Unable jones, floors). 3. Carry a shopping bag or briefcase. Unable 4. Wash your back. Unable 5. Use a knife to cut food. Severe difficulty 6. Recreational activities in which you Unable take some force or impact through your arm, shoulder, or hand (e.g., golf, hammering, tennis, etc.). 7. During the past week, to what extent Extremely has your arm, shoulder or hand problem interfered with your normal social activities with family, friends, neighbors or groups? 8. During the past week, were you Unable limited in your work or other regular daily activites as a result of your arm, shoulder or hand problem? 9. Arm, shoulder or hand pain. Severe 10. Tingling (pins and needles) in your Extreme arm, shoulder or hand. 11. During the past week, how much Severe difficulty difficulty have you had sleeping because of the pain in your arm, shoulder or hand? Quick DASH 50 OT Outpatient Assessment Impairments Problems/Impairments Impaired Range of Motion, Impaired Strength,Subjective C /O Pain Prognosis Rehab Potential Good Clinical Impression Consistent with Diagnosis Yes Short Term Goals Number of Weeks 2 Increase Range of Motion Yes: PROM of L UE shld flex: 120; abd: 120; er: 30; ir: 30 Increase Strength Yes: Improve L UE shld strength to 2 to 2+/5 throughout Decrease Subjective C/O Pain Yes: 6/10 pain at worst Patient to be Ind w/ HEP Yes: PROM Patient to be Ind w/ Advanced HEP Yes: Strengthening Improve Quick Dash Score Yes: 45 Lead Case Manager Goals Number of Weeks 4 Increase Range of Motion Yes: PROM of L UE shld flex: 150; abd: 150; er: 50; ir: 50 Increase Strength Yes: Improve L UE shld strength to 2+/5 to 3-/5 throughout Decrease Subjective C/O Pain Yes: 4/10 pain at worst Patient to be Ind w/ HEP Yes: AROM Patient to be Ind w/ Advanced HEP Yes: Advance strengthening Improve Quick Dash Score Yes: 40 Outpatient Therapy Plan of Care Treatment Plan May Include Therapeutic Exercise Including Home Yes Exercise Program Manual Therapy Techniques Yes Therapeutic Activities to Return to Yes Previous Functional/Work Level Thermal Modalities Yes Electrical Stimulation Yes Ultrasound/Phonophoresis Yes Iontophoresis Yes Eval/Re-Eval Yes Aquatic Therapy Yes Frequency Times per week 2x/wk Duration Number of Weeks 4 weeks Addendums This patient is a candidate for social No or vocational rehab? Patient/Guardian verbally acknowledges Yes understanding of treatment program and consents to further treatment? Patient/Guardian verbally acknowledges Yes understanding of diagnosis, prognosis and goals for treatment? Eval Complexity OT Charge 77223 - Low Complexity PHYSICIAN CERTIFICATION: I certify the specified therapy services for Charmaine Stevenson are required, authorized, and reviewed every 30 days.
== END 2024-06-17 23:59 | disposition home or self-care (01) ==
LOC: OT 11:00
PROVIDERS: Visit Provider Family Medicine
DX: M25.512 Pain in left shoulder (principal)
CPT/HCPCS: 97014; 97035; 97140; 97165; 97530; G0283

== ENCOUNTER 2024-07-11 09:37 | Outpatient (CLI) | payer OTHER, SELFPAY ==
--- NOTE | 2024-07-11 09:41 | XR_ITS ---
FINAL REPORT CLINICAL HISTORY: left shoulder pain [address] end of february per patient COMPARISON: None FINDINGS: LEFT SHOULDER 3 views of the left shoulder were obtained. There is no acute fracture or dislocation. Visualized joint spaces are normally aligned. Soft tissues are unremarkable. IMPRESSION: No acute bony abnormality. Reviewed, Interpreted and Dictated by Shun Simpson MD Transcribed by Jenny Yap Authenticated and [facility]
== END 2024-07-11 23:59 | disposition home or self-care (01) ==
LOC: RAD 09:38
PROVIDERS: PCP Nurse Practitioner; Visit Provider Physician Assistant
DX: M25.512 Pain in left shoulder (principal)
CPT/HCPCS: 73030

== ENCOUNTER 2024-07-11 18:21 | Outpatient (CLI) | payer OTHER, SELFPAY | END 2024-07-11 23:59 | disposition home or self-care (01) | LOC: LAB.DROPOF 18:21 | PROVIDERS: PCP Nurse Practitioner; Visit Provider Nurse Practitioner | DX: N30.01 Acute cystitis with hematuria (principal) | CPT/HCPCS: 87086 ==

== ENCOUNTER 2024-12-31 16:14 | Outpatient (CLI) | payer OTHER, SELFPAY ==
[2024-12-31 19:36] LABS: Erythrocyte Sedimentation Rate 13 mm/hr (0-20)
[2024-12-31 19:38] LABS: Alanine Aminotransferase 47 U/L (12-78); Albumin Level 4.1 g/dl (3.5-5.0); Albumin/Globulin Ratio 1.6 (1.1-1.8); Alkaline Phosphatase 79 U/L (38-126); Anion Gap 13.9 mEq/L (5-15); Aspartate Amino Transferase 33 U/L (14-36); Bilirubin,Total 0.6 mg/dl (0.2-1.3); Blood Urea Nitrogen 8 mg/dl (7-17); Carbon Dioxide 22 mmol/L (22.0-30.0); Chloride 105 mmol/L (98-107); Estimated Glomerular Filt Rate 91 ml/min (>60); GFR (African American) 111 ML/MIN (>60); Globulin 2.6 g/dL (1.3-3.2); Glucose 91 mg/dl (74-100); Potassium 3.9 mmoL/L (3.5-5.1); Sodium 137 mmol/L (136-145); Total Protein,Serum 6.7 g/dl (6.3-8.2)
== END 2024-12-31 23:59 | disposition home or self-care (01) ==
LOC: LAB.DROPOF 01-01 09:53
PROVIDERS: PCP Family Medicine; Visit Provider Family Medicine
DX: F90.2 Attention-deficit hyperactivity disorder, combined type (principal)
CPT/HCPCS: 80053; 85651

== ENCOUNTER 2025-01-28 15:45 | Outpatient (CLI) | payer OTHER, SELFPAY ==
[2025-01-28 18:22] LABS: Lyme Ab IgM CIA ND; Lyme IgG CIA ND
[2025-01-30 14:11] LABS: Lyme Ab CIA Negative (Negative)
== END 2025-01-28 23:59 | disposition home or self-care (01) ==
LOC: LAB.DROPOF 01-29 12:09
PROVIDERS: PCP Family Medicine; Visit Provider Family Medicine
DX: S00.06XA Insect bite (nonvenomous) of scalp, initial encounter (principal)
CPT/HCPCS: 86618

== ENCOUNTER 2025-01-29 19:49 | Outpatient (CLI) | payer OTHER, SELFPAY ==
[2025-01-29 20:32] LABS: MANUAL DIFFERENTIAL MANUAL DIFFERENTIAL (MANUAL DIFF)
[2025-01-29 20:37] LABS: Basophils # 0.1 K/mm3 (0-0.2); Basophils % 0.6 % (0.1-2.0); Eosinophils # 0.1 Kmm3 (0.0-0.4); Eosinophils % 0.5 % (0.1-12.0); Hematocrit 39.4 % (37.0-47.0); Hemoglobin 12.6 g/dL (12.2-16.2); Lymphocytes # 2.9 K/mm3 (0.7-4.5); Lymphocytes % 26.8 % (10-50); Mean Corpuscular Hemoglobin 30.2 pg (27.0-31.2); Mean Corpuscular Volume 94.5 fl (81-99); Mean Platelet Volume 10.7 fl (7.4-10.4); Monocytes # 0.6 K/mm3 (0.1-1.0); Monocytes % 5.5 % (1.7-9.3); Neutrophils # 7.2 K/mm3 (1.8-7.8); Neutrophils % 66.4 % (37.0-80.0); Platelet Count 317 K/mm3 (142-424); Red Blood Count 4.17 M/mm3 (4.20-5.40); Red Cell Distribution Width 12.6 % (11.5-17.5); White Blood Count 10.8 K/mm3 (4.8-10.8)
[2025-01-29 22:55] LABS: Eosinophils % 1 % (0-3); Lymphocytes % 34 % (10-50); Monocytes % 4 % (2-9); Neutrophils % 61 % (42-76); Total Cells Counted 100
[2025-01-29 22:58] LABS: Platelet Estimate Normal; RBC Morphology Normal
== END 2025-01-29 23:59 | disposition home or self-care (01) ==
LOC: LAB.DROPOF 19:53
PROVIDERS: PCP Family Medicine; Visit Provider Family Medicine
DX: R59.0 Localized enlarged lymph nodes (principal)
CPT/HCPCS: 85007; 85014; 85018; 85048; 85049

== ENCOUNTER 2025-05-13 11:45 | Outpatient (CLI) | payer OTHER, SELFPAY ==
--- OUTSIDE RECORDS SUMMARY | 2002-09-04 01:00 | XMS_ITS | Encounter Summary ---
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
--- OUTSIDE RECORDS SUMMARY | 2018-09-13 04:10 | XMS_ITS | Continuity of Care Document ---
Author Organization [address] [place] [address] Address [address] [facility] [address] [place] [address] Phone Care Team Providers Care Histology Specialist Name Role Phone Lauro Riley DPM Unavailable Unavailable Allergies, Adverse Reactions, Alerts Substance Reaction Status Criticality No Known Allergies Active No Inform ation Medications Medication Instructions Dosage Effective Dates (start - stop) Status Comments Lyrica 50 mg capsule take 1 capsule by o ral route 3 times every day 50 MG - Active metoprolol succinate ER 25 mg tablet,extended release 24 hr take 1 tablet by oral route every day 25 MG - Active Procedures Procedure Date DEBRIDEMENT OF NAIL(S) BY ANY METHOD(S); 1 TO 5 Advance Directives Directive Yes / No Effective Date File Name No Information Encounters Encounter Description Practice Location Reason(s) For Visit Diagnoses Date Provider Providers Copied on Encounter [address] [place] [address], [address], [place], [place], [id number], tel:[phone] [facility] Tinea unguiumPain in left toe(s)Pain in right toe(s) 0 [address]repo. [address] [facility], [address], [place], [place], Formerly [facility], . Referring Provider: Eli Teixeira. Family History Family Member Type Diagnosis Age At Onset No Information Payers Payer name Insurance type Covered democrat ID Authorlynettea magda(s) [facility] [id number] Social History Type Description Quantity Date Captured Comments Alcohol Use Details Unknown Caffeine Use Details Unknown Tobacco Use Status Smoking Status Unknown if ever smoked 18 Non-Smoking Tobacco Use Details : No Details Available : No Details Available Sex Female Chief Complaint And Reason For Visit No Information Reason For Referral Reason For Referral No Information Plan Of Treatment Date Type Action Status Patient Education Toenail Fungus: Care In structions completed History Of Present Illness Encounter Date Complaint History Of Prese nt Illness No Information Functional Status Date Functional Assessmen t No Information Instructions Date Instruction Additional Infor mation Toenails 1 b/l were debrided in length and thickness without incident. Remainder of toenails were trimmed. Follow up in 2-3 months. Related to Tinea unguium Assessments Type Assessment Date assessment Tinea unguium assessment Pain in left toe(s) assessment Pain in right toe(s) Patient Care Teams Name Effective Dates (start - stop) Status Members No Information
--- OUTSIDE RECORDS SUMMARY | 2021-07-02 10:38 | XMS_ITS | Encounter Summary ---
Author Organization [place] [address] Care Team Providers Care Dynamic Balancer Name Role Phone Gustavo Gonzalez MD Unavailable [phone] Diana Drew MD Primary Care Provi haritha Unavailable Encounter Details Date Type Department Care Team (Latest Contact Info) Description 07/02/2021 10:38 AM EDT Hospital Encounter [facility] Referral Lab [address] [place] [phone] Hal Arzate, YUMIKO [address] [place] [id number] Encounter for therapeutic drug level monitoring Social History Tobacco Use Types Packs/Day Years Used Date Smoking Tobacco: Some Days Cigarettes 0.5 27.2 Started: 12/25/1996; Last attempted to quit: 03/22/2024 Passive Smoke Exposure: Current Smokeless Tobacco: Never Quit: 06/04/2016 Comments:Currently using the nicotine patch Alcohol Use Standard Drinks/Week Comments No 0 (1 standard drink = 0.6 oz pur e alcohol) [facility] Utilities Answer Date Recorded In the past 12 months has th e electric, gas, oil, or water company threatened to shut off services in your home? No 06/10/2024 Overall Financial Resource Strain (CARDIA) Answe r Date Recorded How hard is it for you to pa y for the very basics like food, housing, medical care, and heating? Not very hard 06/10/2024 PHQ-2 Answer Date Recorded PHQ-2 Total Score 6 06/10/2024 [facility] - Occupational Stress Questionnaire Answer Date Recorded Do you feel stress - tense, restless, nervous, or anxious, or unable to sleep at night because your mind is troubled all the time - these days? Only a little 06/10/2024 Exercise Vital Sign Answer Date Recorde d On average, how many days pe r week do you engage in moderate to strenuous exercise (like a brisk walk)? 0 days 06/10/2024 On average, how many minutes do you engage in exercise at this level? 0 min 06/10/2024 Hunger Vital Sign Answer Date Recorded Within the past 12 months, y ou worried that your food would run out before you got the money to buy more. Never true 06/10/20 24 Within the past 12 months, t he food you bought just didn't last and you didn't have money to get more. Never true 06/10/2024 [facility] - Transportation Answer Date Re corded In the past 12 months, has l ack of transportation kept you from medical appointments or from getting medications? Yes 03/2022 In the past 12 months, has l ack of transportation kept you from meetings, work, or from getting things needed for daily living? Yes 03/01/2022 [facility] IP Transportation Answer D ate Recorded In the past 12 months, has l ack of reliable transportation kept you from medical appointments, meetings, work or from getting things needed for daily living? No 06/10/2024 Sexually Active [employer] Comments Yes Implant, Surgical, O ther-see comments Male Nexplanon implant in left upper arm Comments No Sex and Gender Information Value Date Recorded Sex Assigned at Not on file Legal Sex Female 8:44 PM EDT Gender Identity Not on file Sexual Orientation Not on file Occupation Industry Job Start Date Job End Date un employed due to back pain Not on file Not on file Not on file COVID-19 Exposure Response Date Recorded In the last 10 days, have bry klein been in contact with someone who was confirmed or suspected to have Coronavirus/COVID-19? No / Unsure 01/02/2023 6:05 PM EDT documented as of this encounter Functional Status * Cognitive and Functional Status Question Answer Date of Assessment Author Is the person deaf or does h e/she have serious difficulty hearing? No 06/11/2024 11:49 AM EDT Keyanna Del Rosario RN Is the person blind or does he/she have serious difficulty seeing even when wearing glasses? No 06/11/2024 11:49 AM EDT Keyanna Dunn RN Does this person have seriou s difficulty walking or climbing stairs? No 06/11/2024 11:49 AM EDT Keyanna Dunn RN Does this person have diffic ulty dressing or bathing? No 06/11/2024 11:49 AM EDT Keyanna Dunn RN * Alcohol Screening Score Answer Date of Assessment Author 0 06/09/2024 1:00 PM EDT Paige Perry RN * Drug Screening Score Answer Date of Assessment Author 0 06/09/2024 1:00 PM EDT Paige Perry RN * Question Answer Date of Assessment Author How often do you have a drin k containing alcohol? 0 06/09/2024 1:00 PM EDT Heath Perry RN How many drinks containing alcohol do you have on a typical day when you are drinking? 0 06/09/2024 1:00 PM EDT Heaht Perry RN How often do you have six or more drinks on one occasion? 0 06/09/2024 1:00 PM EDT Paige Quintana RN AUDIT-C to Determine Rows 4-10 0 06/09/2024 1:00 PM EDT Paige Perry RN * Is the person deaf or does he/she have serious difficulty hearing? Answer Date of Assessment Author No 06/18/2021 3:38 PM EDT Leanna Burleson MA * Is the person blind or does he/she have serious difficulty seeing even when wearing glasses? Answer Date of Assessment Author No 06/18/2021 3:38 PM EDT Leanna Burleson MA * Does this person have serious difficulty walking or climbing stairs? Answer Date of Assessment Author No 06/18/2021 3:38 PM EDT Leanna Burleson MA * Does this person have difficulty dressing or bathing? Answer Date of Assessment Author No 06/18/2021 3:38 PM EDT Leanna Burleson MA * Because of a physical, mental or emotional condition, does this person have difficulty doing errands alone such as visiting a doctor's office or shopping? Answer Date of Assessment Author No 06/18/2021 3:38 PM EDT Leanna Burleson MA * Question Answer Date of Assessment Author Little interest or pleasure in doing things 3 06/10/2024 12:22 PM Shayla Stanton MSW Feeling down, depressed, or hopeless 3 06/10/2024 12:22 PM Shayla Stanton MSW PHQ-2 Total Score 6 06/10/2024 12: 22 PM Shayla Stanton MSW Trouble falling or staying asleep, or sleeping too much 2 06/10/2024 12:22 PM Shayla Stanton MSW Feeling tired or having little energy 2 06/10/2024 12:22 PM Shayla Stanton MSW Poor appetite or overeating 2 06/10/2024 12:22 PM Shayla Stanton MSW Feeling bad about yourself - or that you are a failure or have let yourself or your family down 2 06/10/2024 12:22 PM Shayla Stanton MSW Trouble concentrating on things, such as reading the newspaper or watching television 2 06/10/2024 12:22 PM Shayla Stanton MSW Moving or speaking so slowly that other people could have noticed. Or the opposite - being so fidgety or restless that you have been moving around a lot more than usual 0 06/10/2024 12:22 PM Shayla Stanton MSW Thoughts that you would be better off , or of hurting yourself in some way 0 06/10/2024 12:22 PM EDT Shayla Hancock MSW PHQ-9 Total Score 16 06/10/2024 12: 22 PM EDT Shayla Hancock MSW If you checked off any problems, how difficult have these problems made it for you to do your work, take care of things at home, or get along with other people? Somewhat difficult 06/10/2024 12:22 PM EDT Shayla Hancock MSW * Suicide Severity Rating Answer Date of Assessment Author No Risk 02/09/2025 8:48 PM EDT Martín Martinez RN * [place] Suicide Severity Rating Scale (Q shift for moderate and high) Question Answer Date of Assessment Author 1. In the past month, have y ou wished you were or wished you could go to sleep and not wake up? 0 02/09/2025 8:48 PM EDT Dieudonne Hall RN 2. In the past month, have y ou actually had any thoughts of killing yourself? (If no, skip to question 6) 0 02/09/2025 8:48 PM EDT Dieudonne Martinez RN 6. Have you ever done anythi ng, started to do anything, or prepared to do anything to end your life? 0 02/09/2025 8:48 PM EDT Dieudonne Emery RN documented as of this encounter Mental Status * Cognitive and Functional Status Question Answer Entry Date Author Because of a physical, menta l or emotional condition, does this person have difficulty doing errands alone such as visiting a doctor's office or shopping? No 06/11/2024 11:49 AM EDT Keyanna Dunn RN Because of a physical, menta l or emotional condition, does this person have serious difficulty concentrating, remembering or making decisions? No 06/11/2024 11:49 AM EDT Keyanna Dunn RN * Because of a physical, mental or emotional condition, does this person have serious difficulty concentrating, remembering or making decisions? Answer Entry Date Author No 06/18/2021 3:38 PM EDT Leanna Burleson MA documented in this encounter Plan of Treatment Upcoming Encounters Date Type Department Care Team (Late st Contact Info) Description 05/19/2025 12:30 PM EDT Office Visit [facility] Diabetes [facility] [address] [facility] [address] [place] [address] Estrellita Franco MD [address] [place], [place] [phone] 05/27/2025 1:30 PM EDT Office Visit [facility] GASTRO [facility]IN [address], 3RD [place] [address] Kimberly Pereyra MD [address] [facility] [place] [address] 07/08/2025 10:30 AM EDT Office Visit [facility] Neurology CV [address] [place] [address] Cecil Villegas MD [address] [facility] [address] [place] [address] 10/08/2025 11:00 AM EST Appointment [facility] [address] [facility] [place] [address] 10/08/2025 11:15 AM EST Appointment [facility] [address] [place] [address] Emily Cherry, CLINICAL ENGINEERING MANAGER [address] [facility] [address] [place] [address] Scheduled Orders Name Type Priority Associated Diagnoses Orde r Schedule CBC WITH DIFF Lab Routine Encounter for therapeutic drug level monitoring ONCE for 1 Occurrences starting 07/02/2021 until 08/06/2021 BASIC METABOLIC PANEL Lab Routine Encounter for therapeutic drug level monitoring ONCE for 1 Occurrences starting 07/02/2021 until 08/06/2021 RENAL FUNCTION PANEL Lab Routine Encounter for therapeutic drug level monitoring ONCE for 1 Occurrences starting 07/02/2021 until 08/06/2021 TSH REFLEX Lab Routine Encounter for therapeutic drug level monitoring ONCE for 1 Occurrences starting 07/02/2021 until 08/06/2021 documented as of this encounter Goals Goal Patient Goal Type Associated Problems Recent Progress Patient-Stated? Author Blood Pressure < 140/90 Blood Pressure 105/70(2024 10:55 AM EDT) No Hamida Moran APRN Maintain a healthy diet, exercise regularly and maintain an ideal body weight General No Johanna Guardado RMLeanna Stay Tobacco Free Lifestyle No Johanna Guardado RMLeanna documented as of this encounter Visit Diagnoses Diagnosis Encounter for therapeutic drug level monitoring Encounter for therapeutic drug monitoring documented in this encounter Additional Health Concerns Infection Onset Date Last Indicated Resolved Time COVID-19 10/19/2021 10/19/2021 11/08/2021 10:1 2 PM EST R/O COVID-19 01/02/2023 01/02/2023 01/02/2023 7:31 PM EDT Assessment Noted Time PHQ-9 Depression Total Score: 10 019 9:17 AM EST PHQ-2 Depression Total Score: 3 09/23/20 19 9:17 AM EST documented as of this encounter Care Teams Dynamic Balancer Relationship Specialty Start Date End Date Diana Drew MD [address] [facility] [address] [place] [address] PCP - General Family Medicine 07/31/20 12/12/22 Gustavo Gonzalez MD [address] [facility] [address] [place] [address] 05/04/16 documented as of this encounter
--- OUTSIDE RECORDS SUMMARY | 2021-07-05 09:17 | XMS_ITS | Encounter Summary ---
Author Organization [place] [address] Care Team Providers Care Professor Of French Name Role Phone Gustavo Gonzalez MD Unavailable [phone] Diana Drew MD Primary Care Provi haritha Unavailable Encounter Details Date Type Department Care Team (Latest Contact Info) Description 07/05/2021 9:17 AM EDT Hospital Encounter [facility] Referral Lab [address] [place] [phone] Hal Arzate, YUMIKO [address] [phone] Encounter for therapeutic drug level monitoring Social History Tobacco Use Types Packs/Day Years Used Date Smoking Tobacco: Some Days Cigarettes 0.5 27.2 Started: 12/25/1996; Last attempted to quit: 03/22/2024 Passive Smoke Exposure: Current Smokeless Tobacco: Never Quit: 06/04/2016 Comments:Currently using the nicotine patch Alcohol Use Standard Drinks/Week Comments No 0 (1 standard drink = 0.6 oz pur e alcohol) [facility] Utilities Answer Date Recorded In the past [...] Date Recorded PHQ-2 Total Score 6 06/10/2024 [facility] - Occupational Stress Questionnaire Answer Date [...] things needed for daily living? Yes 03/01/2022 [facility] IP Transportation Answer D ate Recorded In [...] are drinking? 0 06/09/2024 1:00 PM EDT Heath Perry RN How often do you have [...] Assessment Author No 06/18/2021 3:38 PM EDT Lenana Burleson MA * Because of a physical, [...] 8:48 PM EDT Martín Martinez RN * [place] Suicide Severity Rating Scale (Q shift for [...] EDT Office Visit [facility] Diabetes Melissa [address] [facility] [address] [place] [address] Estrellita Franco MD [address] [place] [address] 05/27/2025 1:30 PM EDT Office Visit [facility] GASTRO NAVIN [address] [facility] [address]TRANCE, 3RD [place] [address] Kimberly Pereyra MD [address] [facility] [place] [address] 07/08/2025 10:30 AM EDT Office Visit [facility] Neurology [facility] [address] [place] [address] Cecil Villegas MD [address] [facility] [address] [place] [address] 10/08/2025 11:00 AM EST Appointment [facility] [address] [facility] [place] [address] 10/08/2025 11:15 AM EST Appointment [facility] [address] [facility] [address] [place] [address] Emily Cherry APRN [address] [facility] [address] [place] [address] documented as of this encounter Goals Goal Patient Goal Type Associated Problems Recent Progress Patient-Stated? Author Blood Pressure < 140/90 Blood Pressure 105/70(2024 10:55 AM EDT) No Hamida Moran APRN Maintain a healthy diet, exercise regularly and maintain an ideal body weight General No Johanna Guardado RMA Stay Tobacco Free Lifestyle No Johanna Guardado RMA documented as of this encounter Results * TSH REFLEX (07/05/2021 11:59 AM EDT) TSH Reflex 1.900 0.270 - 4.200 mcIU/mL 07/05/2021 4:47 PM EDT [facility] Blood Venipuncture / Unknown 07/05/2021 11:59 AM EDT 07/05/2021 11:59 AM EDT Narrative [facility] - 07/05/2021 4:47 PM EDT Ingestion of harshil doses of biotin (>5 mg/day) taken within 8 hours of drawing blood sample can interfere with this immunoassay test. us Hal Arzate NP CHEMISTRY ORDERABLES F inal Result [facility] [address] [facility] , [address] [place] [phone] * (ABNORMAL) CBC WITH DIFF (07/05/2021 11:59 AM EDT) WBC 11.1(H) 3.7 - 10.3 x10(3)/mcL 07/05/2021 3:42 PM EDT [facility] RBC 3.63(L) 3.90 - 5.20 x10(6)/mcL 07/05/2021 3:42 PM EDT [facility] Hgb 11.0(L) 11.2 - 15.7 g/dL 07/05/2021 3:42 PM EDT [facility] Hct 35.8 34.0 - 45.0 % 07/05/2021 3:42 PM EDT [facility] MCV 98.6 80.0 - 100.0 fL 07/05/2021 3:42 PM EDT [facility] MCH 30.3 26.0 - 34.0 pg 07/05/2021 3:42 PM EDT [facility] MCHC 30.7 30.7 - 35.5 g/dL 07/05/2021 3:42 PM EDT [facility] RDW 14.3 <=14.9 % 07/05/2021 3:42 PM EDT [facility] Platelet 473(H) 155 - 369 x10(3)/mcL 07/05/2021 3:42 PM EDT [facility] MPV 9.8 8.8 - 12.5 fL 07/05/2021 3:42 PM EDT [facility] Neut Percent 59.4 % 07/05/2021 3:42 PM EDT [facility] Comment:Neutrophils equals s egs plus bands Imm Gran% 0.5 % 07/05/2021 3:42 PM EDT [facility] Comment:Automated count of m etamyelocytes, myelocytes and promyelocytes. Lymph Percent 30.2 % 07/05/2021 3:42 PM EDT [facility] [place] Percent 7.3 % 07/05/2021 3:42 PM EDT [facility] Eos Percent 1.9 % 07/05/2021 3:42 PM EDT [facility] Baso Percent 0.7 % 07/05/2021 3:42 PM EDT [facility] Neut # 6.6(H) 1.6 - 6.1 x10(3)/[facility] 07/05/2021 3:42 PM EDT [facility] Comment:Neutrophils equals s egs plus bands IMMGRAN# 0.1 0.0 - 0.1 x10(3)/[facility] 07/05/2021 3:42 PM EDT [facility] Comment:Automated count of m etamyelocytes, myelocytes and promyelocytes. An absolute IG <0.1 is reported as 0.0. Lymph # 3.4 1.2 - 3.9 x10(3)/mcL 07/05/2021 3:42 PM EDT [facility] [place] # 0.8 0.3 - 0.9 x10(3)/[facility] 07/05/2021 3:42 PM EDT [facility] Eos# 0.2 0.0 - 0.5 x10(3)/[facility] 07/05/2021 3:42 PM EDT [facility] Baso # 0.1 0.0 - 0.1 x10(3)/[facility] 07/05/2021 3:42 PM EDT [facility] Blood Venipuncture / Unknown 07/05/2021 11:59 AM EDT 07/05/2021 11:59 AM EDT us Hal Arzate NIGHT GUARD HEMATOLOGY ORDERABLES Final Result [facility] [address] [facility] , [place] [address] * RENAL FUNCTION PANEL (07/05/2021 11:59 AM EDT) Sodium 143 136 - 145 mmol/L 07/05/2021 4:47 PM EDT [facility] Potassium 3.7 3.5 - 5.0 mmol/L 07/05/2021 4:47 PM EDT [facility] Chloride 106 98 - 107 mmol/L 07/05/2021 4:47 PM EDT [facility] Total CO2 24 22 - 29 mmol/L 07/05/2021 4:47 PM EDT [facility] Anion Gap 13 7 - 16 mmol/L 07/05/2021 4:47 PM EDT [facility] Calcium 9.5 8.6 - 10.4 mg/dL 07/05/2021 4:47 PM EDT [facility] Glucose Lvl 92 74 - 100 mg/dL 07/05/2021 4:47 PM EDT [facility] BUN 9 6 - 20 mg/dL 07/05/2021 4:47 PM EDT [facility] Creatinine 0.81 0.51 - 1.30 mg/dL 07/05/2021 4:47 PM EDT [facility] Albumin 4.5 3.5 - 5.2 gm/dL 07/05/2021 4:47 PM EDT [facility] Phosphorus 3.0 2.5 - 4.5 mg/dL 07/05/2021 4:47 PM EDT [facility] GFR Afr Am 105 >=60 mL/min/1.7 3 m2 07/05/2021 4:47 PM EDT [facility] GFR Non Afr Am 91 >=60 mL/min/1.7 3 m2 07/05/2021 4:47 PM EDT [facility] Comment: This estimated GFR was calculated using CKD-EPI equation which is modified based on ethnicity for Non Americans and Americans. Both results are reported since it is not always possible to determine the patient's ethnicity. This equation should only be used for individuals 18 and older. It has not been validated for use with the elderly (>70 years), women, or in some racial or ethnic subgroups, such as Hispanics. The equation will be less accurate in people with differences in nutritional status or muscle mass. Blood Venipuncture / Unknown 07/05/2021 11:59 AM EDT 07/05/2021 11:59 AM EDT us Hal Arzate NIGHT GUARD CHEMISTRY ORDERABLES F inal Result [facility] [address] [facility], [address] [place] [phone] [facility] [address] [place], [place] [phone] documented in this encounter Visit Diagnoses Diagnosis Encounter for therapeutic drug level monitoring Encounter for therapeutic drug monitoring documented in this encounter Orders Lab Orders Without Results Count Last Ordered D ate First Ordered Date BASIC METABOLIC PANEL 1 07/05/2021 documented in this encounter Additional Health Concerns Infection Onset Date Last Indicated Resolved Time COVID-19 10/19/2021 10/19/2021 11/08/2021 10:1 2 PM EST R/O COVID-19 01/02/2023 01/02/2023 01/02/2023 7:31 PM EDT Assessment Noted Time PHQ-9 Depression Total Score: 10 09/23/ 019 9:17 AM EST PHQ-2 Depression Total Score: 3 09/23/20 19 9:17 AM EST documented as of this encounter Care Teams Professor Of French Relationship Specialty Start Date End Date Diana Drew MD [address] [facility] [address] [place] [address] PCP - General Family Medicine 07/31/20 12/12/22 Gustavo Gonzalez MD [address] [facility] [address] [place] [address] 05/04/16 documented as of this encounter
--- OUTSIDE RECORDS SUMMARY | 2023-09-11 10:23 | XMS_ITS | Encounter Summary ---
Author Organization [place] [address] Care Team Providers Care [employer] Name Role Phone Gustavo Gonzalez MD Unavailable [phone] Encounter Details Date Type Department Care Team (Latest Contact Info) Description 09/11/2023 9:23 AM EST Hospital Encounter [facility] Referral Lab [address] [place] [id number] Carla Verduzco, AUTO PHONE INSTALLER [address] [place] [id number] Other [facility] (current) drug therapy Social History Tobacco Use Types Packs/Day Years Used Date Smoking Tobacco: Some Days Cigarettes 0.5 27.2 Started: 12/25/1996; Last attempted to quit: 03/22/2024 Passive Smoke Exposure: Current Smokeless Tobacco: Never Quit: 06/04/2016 Comments:Currently using the nicotine patch Alcohol Use Standard Drinks/Week Comments No 0 (1 standard drink = 0.6 oz pur e alcohol) [facility] Utilities Answer Date Recorded In the past 12 months has 1-4 All, gas, oil, or water company threatened to shut off services in your home? No 06/10/2024 Overall Financial Resource Strain (CARDIA) Answe r Date Recorded How hard is it for you to pa y for the very basics like food, housing, medical care, and heating? Not very hard 06/10/2024 PHQ-2 Answer Date Recorded PHQ-2 Total Score 6 06/10/2024 [facility] - Occupational Stress Questionnaire Answer Date Recorded [...] things needed for daily living? Yes 03/01/2022 [facility] IP Transportation Answer D ate [...] file Not on file Not on file documented as of this encounter Functional Status * Cognitive and Functional Status Question Answer Date of Assessment Author Is the person deaf or does h e/she have serious difficulty hearing? No 06/11/2024 11:49 AM EDT Keyanna Del Rosario RN Is the person blind or does he/she have serious difficulty seeing even when wearing glasses? No 06/11/2024 11:49 AM JINAT Keyanna Dunn RN Does this person have seriou s difficulty walking or climbing stairs? No 06/11/2024 11:49 AM EDT Keyanna Dunn RN Does this person have diffic ulty dressing or bathing? No 06/11/2024 11:49 AM EDT Keyanna Dunn RN * Alcohol Screening Score Answer Date of Assessment Author 0 06/09/2024 1:00 PM JINAT Paige Perry RN * Drug Screening Score Answer Date of Assessment Author 0 06/09/2024 1:00 PM EDPaige Mendoza RN * Question Answer Date of Assessment Author How often do you have a drin k containing alcohol? 0 06/09/2024 1:00 PM Heath Rivera RN How many drinks containing alcohol do you have on a typical day when you are drinking? 0 06/09/2024 1:00 PM Heath Rivera RN How often do you have six or more drinks on one occasion? 0 06/09/2024 1:00 PM Paige Doss RN AUDIT-C to Determine Rows 4-10 0 [...] of Assessment Author No 06/18/2021 3:38 PM JINAT Leanna Burleson MA * Question Answer Date [...] in some way 0 06/10/2024 12:22 PM Shayla Stanton MSW PHQ-9 Total Score 16 06/10/2024 12: 22 PM Shayla Stanton MSW If you checked off any problems, how difficult have these problems made it for you to do your work, take care of things at home, or get along with other people? Somewhat difficult 06/10/2024 12:22 PM EDT Shayla Hancock MSW * Suicide Severity Rating Answer Date of Assessment Author No Risk 02/09/2025 8:48 PM EDT Martín aMrtinez RN * [place] Suicide Severity Rating Scale (Q shift for [...] 12:30 PM EDT Office Visit [facility] [address] [address] Estrellita Franco MD [address] [place] [address] 05/27/2025 1:30 PM EDT Office Visit [facility] [address], [address]RD [place] [address] iKmberly Pereyra MD [address] [place] [address] 07/08/2025 10:30 AM EDT Office Visit [facility] [address] [place] [address] Cecil Villegas MD [address] [place] [address] 10/08/2025 11:00 AM EST Appointment [facility] [address] [place] [address] 10/08/2025 11:15 AM EST Appointment [facility] [address] [place] [address] Emily Cherry APRN [address] [place] [address] [address] [place], [place] [phone] documented as of this encounter Goals Goal [...] of this encounter Results * TSH REFLEX (09/13/2023 10:48 AM EST) TSH Reflex 1.030 0.270 - 4.200 mcIU/mL 09/13/2023 3:35 PM EST [facility] Blood VENOUS BLOOD / Unknown Venipuncture / Unknown 09/13/2023 10:48 AM EST 09/13/2023 10:48 AM EST Narrative [facility] - 09/13/2023 3:35 PM EST Ingestion of harshil doses of biotin (>5 mg/day) taken within 8 hours of drawing blood sample can interfere with this immunoassay test. Carla Verduzco AUTO PHONE INSTALLER CHEMISTRY ORDERABLES Final R esult [facility] [address] , [place] [address] * LIPID PANEL REFLEX (09/13/2023 10:48 AM EST) Pathologist [facility] Cholesterol 146 <200 mg/dL 09/13/2023 3:35 PM EST [facility], [facility] Comment: < 200 Desirable 200 - 239 Borderline High >= 240 High Triglyceride 89 <150 mg/dL 09/13/2023 3:35 PM EST [facility] [employer], [facility] Comment: < 150 Normal 150 - 199 Borderline High 200 - 499 High >= 500 Very High HDL 53 >=40 mg/dL 09/13/2023 3:35 PM EST [employer], [facility] Comment: > 60 Optimal 40 - 60 Acceptable < 40 Low LDL Calculated 76 <100 mg/dL 09/13/2023 3:35 PM EST [facility] [employer] [facility] Non-HDL-C Calculated 93 <=129 mg/dL 09/13/2023 3:35 PM EST [facility] [employer], [facility] Comment: <130 Desirable 130-159 Above Desirable 160-189 Borderline High 190-219 High >= 220 Very High Fasting Specimen? No None 023 3:35 PM EST [facility] Blood VENOUS BLOOD / Unknown Venipuncture / Unknown 09/13/2023 10:48 AM EST 09/13/2023 10:48 AM EST Carla Verduzco AUTO PHONE INSTALLER CHEMISTRY ORDERABLES Final R esult [facility], [facility] [address] [facility] [address] [place] [address] [facility] [address] [place] [address] * HEMOGLOBIN A1C (09/13/2023 10:48 AM EST) Pathologist [facility] Hgb A1C 5.4 4.2 - 5.6 % 09/13/2023 4:05 PM EST [facility] Est. Avg Glucose 108 mg/dL 09/13/2023 4:05 PM EST [facility] Blood VENOUS BLOOD / Unknown Venipuncture / Unknown 09/13/2023 10:48 AM EST 09/13/2023 10:48 AM EST Narrative [facility] - 09/13/2023 4:05 PM EST REFERENCE RANGE: Normal: 4.0-5.6% Pre-diabetes: 5.7-6.4% Provisional diagnosis of diabetes: >6.4% Hgb F>10% and anything which shortens red cell survival, such as hemolytic anemia, or unstable hemoglobin variants such as HbSS, HbSC, or HbCC, will lower the HbA1c value associated with a given level of glycemic control. Carla Verduzco NP CHEMISTRY ORDERABLES Final R esult [facility], [facility] [address] , [place] [address] * (ABNORMAL) COMPREHENSIVE METABOLIC PANEL (09/13/2023 10:48 AM EST) Pathologist [facility] Sodium 141 136 - 145 mmol/L 09/13/2023 3:35 PM EST [facility] Potassium 3.0(L) 3.5 - 5.0 mmol/L 09/13/2023 3:35 PM EST [facility] Chloride 105 98 - 107 mmol/L 09/13/2023 3:35 PM EST [facility] Total CO2 28 22 - 29 mmol/L 09/13/2023 3:35 PM EST [facility] Anion Gap 8 7 - 16 mmol/L 09/13/2023 3:35 PM EST [facility] Calcium 9.1 8.6 - 10.4 mg/dL 09/13/2023 3:35 PM EST [facility] Glucose Lvl 85 74 - 100 mg/dL 09/13/2023 3:35 PM EST [facility] BUN 5(L) 6 - 20 mg/dL 09/13/2023 3:35 PM EST [facility] Creatinine 0.70 0.51 - 1.30 mg/dL 09/13/2023 3:35 PM EST [facility] Albumin 4.1 3.5 - 5.2 gm/dL 09/13/2023 3:35 PM EST [facility] Total Protein 6.4 6.4 - 8.3 gm/dL 09/13/2023 3:35 PM EST [facility] Bili Total 0.2 0.2 - 1.3 mg/dL 09/13/2023 3:35 PM EST [facility] ALT 14 <=41 U/L 09/13/2023 3:35 PM EST [facility] AST 10 <=40 U/L 09/13/2023 3:35 PM EST [facility] Alk Phos 85 36 - 123 U/L 09/13/2023 3:35 PM EST [facility], [facility] eGFR (CKD-EPIcr 2020) 110 >=60 mL/min/1.7 3 m2 09/13/2023 3:35 PM EST [facility] Comment:Estimated GFR was ca lculated using the CKD-EPIcr (2020) equation refit without race. The equation is recommended by the National Kidney Foundation - [place] [employer] of Nephrology Task Force. Blood VENOUS BLOOD / Unknown Venipuncture / Unknown 09/13/2023 10:48 AM EST 09/13/2023 10:48 AM EST Carla Verduzco NP CHEMISTRY ORDERABLES Final R esult [facility] [address] , [address] [place] [phone] [facility] [address] [place] [address] * (ABNORMAL) CBC WITH DIFF (09/13/2023 10:48 AM EST) WBC 12.3(H) 3.7 - 10.3 x10(3)/mcL 09/13/2023 3:06 PM EST [facility], [facility] RBC 3.60(L) 3.90 - 5.20 x10(6)/mcL 09/13/2023 3:06 PM EST [facility] Hgb 10.8(L) 11.2 - 15.7 g/dL 09/13/2023 3:06 PM EST [facility] Hct 35.1 34.0 - 45.0 % 09/13/2023 3:06 PM EST [facility] MCV 97.5 80.0 - 100.0 fL 09/13/2023 3:06 PM EST [facility] MCH 30.0 26.0 - 34.0 pg 09/13/2023 3:06 PM EST [facility] MCHC 30.8 30.7 - 35.5 g/dL 09/13/2023 3:06 PM EST [facility] RDW 13.2 <=14.9 % 09/13/2023 3:06 PM EST [facility] Platelet 527(H) 155 - 369 x10(3)/mcL 09/13/2023 3:06 PM EST [facility] MPV 10.0 8.8 - 12.5 fL 09/13/2023 3:06 PM EST [facility] Neut Percent 61.8 % 09/13/2023 3:06 PM EST [facility] Comment:Neutrophils equals s egs plus bands Imm Gran% 0.2 % 09/13/2023 3:06 PM EST [facility] Comment:Automated count of m etamyelocytes, myelocytes and promyelocytes. Lymph Percent 28.6 % 09/13/2023 3:06 PM EST [facility] Chase Percent 9.0 % 09/13/2023 3:06 PM EST [facility] Eos Percent 0.2 % 09/13/2023 3:06 PM EST [facility] Baso Percent 0.2 % 09/13/2023 3:06 PM EST [facility] Neut # 7.6(H) 1.6 - 6.1 x10(3)/mcL 09/13/2023 3:06 PM EST [facility] Comment:Neutrophils equals s egs plus bands IMMGRAN# 0.0 0.0 - 0.1 x10(3)/mcL 09/13/2023 3:06 PM EST [facility] Comment:Automated count of m etamyelocytes, myelocytes and promyelocytes. An absolute IG <0.1 is reported as 0.0. Lymph # 3.5 1.2 - 3.9 x10(3)/mcL 09/13/2023 3:06 PM EST [facility] [employer] Chase # 1.1(H) 0.3 - 0.9 x10(3)/mcL 09/13/2023 3:06 PM EST [facility] Eos# 0.0 0.0 - 0.5 x10(3)/mcL 09/13/2023 3:06 PM EST [facility] Baso # 0.0 0.0 - 0.1 x10(3)/mcL 09/13/2023 3:06 PM EST [facility] [employer], [employer] Blood VENOUS BLOOD / Unknown Venipuncture / Unknown 09/13/2023 10:48 AM EST 09/13/2023 10:48 AM EST Carla Verduzco AUTO PHONE INSTALLER HEMATOLOGY ORDERABLES Final Result [facility] [employer], [facility] [address] , [place] [address] documented in this encounter Visit Diagnoses 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
--- OUTSIDE RECORDS SUMMARY | 2025-04-21 10:00 | XMS_ITS | Encounter Summary ---
Author Organization [place] [address] Care Team Providers Care Material Control Specialist Name Role Phone Gustavo Gonazlez MD Unavailable [phone] Adele Caruso APRN Primary Care Provider [phone] Reason for Referral * Genetic Lab Test (Routine) - Closed Specialty Diagnoses / Procedures Referred By Tyler castro Referred To Contact Lab Diagnoses Iron deficiency anemia refractory to iron therapy Abnormal serum protein electrophoresis Iron deficiency anemia, unspecified iron deficiency anemia type Other neutropenia Procedures KAPPA/LAMBDA FREE LIGHT CHAINS Emily Cherry APRN [address] [place] [address] Phone: tel: fax: [facility] [address] [place] [address] Phone: tel: fax: Referral ID Status Reason Start Date Expiration Date Visits Re quested Visits Authorized [id number] Closed 10/21/2024 10/21/2025 1 1 Reason for Visit * Genetic Lab Test (Routine) - Closed Specialty Diagnoses / Procedures Referred By Tyler t Referred To Contact Lab Diagnoses Iron deficiency anemia refractory to iron therapy Abnormal serum protein electrophoresis Iron deficiency anemia, unspecified iron deficiency anemia type Other neutropenia Procedures KAPPA/LAMBDA FREE LIGHT CHAINS Emily Cherry APRN [address] [facility] [address] [address] [place] [address] Phone: tel: fax: [facility] [address] [place] [address] Phone: tel: fax: Referral ID Status Reason Start Date Expiration Date Visits Re quested Visits Authorized [id number] Closed 10/21/2024 10/21/2025 1 1 Encounter Details Date Type Department Care Team (Latest Contact Info) Description 04/21/2025 10:00 AM EDT - 04/21/2025 11:59 PM EDT Hospital Encounter [facility] [address] [place] [id number] Iron deficiency anemia refractory to iron therapy; Abnormal serum protein electrophoresis; Iron deficiency anemia, unspecified iron deficiency anemia type; Other neutropenia Discharge Disposition: Home or Self Care Social History Tobacco Use Types Packs/Day Years Used Date Smoking Tobacco: Some Days Cigarettes 0.5 27.2 Started: 12/25/1996; Last attempted to quit: 03/22/2024 Passive Smoke Exposure: Current Smokeless Tobacco: Never Quit: 06/04/2016 Comments:Currently using the nicotine patch Alcohol Use Standard Drinks/Week Comments No 0 (1 standard drink = 0.6 oz pur e alcohol) [facility] Utilities Answer Date Recorded In the past 12 months has [employer] electric, gas, oil, or water company threatened to shut off services in your home? No 06/10/2024 Overall Financial Resource Strain (CARDIA) Answe r Date Recorded How hard is it for you to pa y for the very basics like food, housing, medical care, and heating? Not very hard 06/10/2024 PHQ-2 Answer Date Recorded PHQ-2 Total Score 6 06/10/2024 [facility] Occupat ional Health - Occupational Stress [...] things needed for daily living? Yes 03/01/2022 [facility] IP Transportation Answer D ate Recorded In [...] as of this encounter Functional Status * Is the person deaf or does he/she have serious difficulty hearing? Answer Date of Assessment Author No 06/11/2024 11:49 AM Pierre Jensen RN * Is the person blind or does he/she have serious difficulty seeing even when wearing glasses? Answer Date of Assessment Author No 06/11/2024 11:49 AM EDT Dunn, E marietta M, RN * Does this person have serious difficulty walking or climbing stairs? Answer Date of Assessment Author No 06/11/2024 11:49 AM Pierre Jensen RN * Does this person have difficulty dressing or bathing? Answer Date of Assessment Author No 06/11/2024 11:49 AM Pierre Jensen RN * Because of a physical, mental or emotional condition, does this person have difficulty doing errands alone such as visiting a doctor's office or shopping? Answer Date of Assessment Author No 06/11/2024 11:49 AM Pierre Jensen RN documented as of this encounter Mental Status * Because of a physical, mental or emotional condition, does this person have serious difficulty concentrating, remembering or making decisions? Answer Entry Date Author No 06/11/2024 11:49 AM Pierre Jensen RN documented in this encounter Medications at Time of Discharge acetaminophen 325 mg Oral Tab Take 650 mg by mouth every 6 hours as needed for Pain, Fever or Headaches. 12/08/2023 ADDERALL XR 15 mg Oral Capsule, Sust. Release 24 hr Take 15 mg by mouth every morning. 11/02/2023 albuterol (PROVENTIL HFA;VENTOLIN HFA) 90 mcg/actuation Inhl HFA Aerosol InhalerIndication s:COPD, mild (HCC) Inhale 2 Puffs into the lungs 4 times daily. 18 g 5 10/31/2022 albuterol (PROVENTIL) 2.5 mg /3 mL (0.083 %) Inhl Solution for NebulizationIndic ations:Acute bronchitis, unspecified organism,COPD, mild (HCC) Inhale the contents of 1 vial (3 ml) by nebulization every 4 hours as needed for wheezing. 180 mL 2 11/11/2022 budesonide-formot Yogesh (SYMBICORT) 160-4.5 mcg/actuation Inhl HFA Aerosol InhalerIndication s:Acute bronchitis, unspecified organism,COPD, mild (HCC) Inhale 2 Puffs into the lungs 2 times daily. 10.2 g 2 11/15/2022 busPIRone (BUSPAR) 10 mg Oral Tablet Take 10 mg by mouth 2 times daily. 11/02/2023 Calcium Carbonate-Vitamin D3 600 mg-10 mcg (400 unit) Oral Tablet 12/24/2024 cyclobenzaprine (FLEXERIL) 10 mg Oral Tablet Take 10 mg by mouth 3 times daily as needed. for muscle spasms 12/21/2024 diclofenac (VOLTAREN) 1 % Top GelIndications:Ce rvical spondylosis without myelopathy Apply 2-4 g topically 4 times daily. Apply to sore chest area 300 g 2 06/29/2023 diclofenac epolamine (FLECTOR) 1.3 % TD Patch [address] 1 Patch onto the skin 2 times daily as needed. 30 Patch 04/01/2025 ELIQUIS 5 mg Oral Tablet Take 5 mg by mouth 2 times daily. 01/15/2025 ergocalciferol (DRISDOL) 1,250 mcg (50,000 unit) Oral CapsuleIndication s:Vitamin D deficiency Take 1 Capsule by mouth once a week. 12 Capsule 1 04/15/2025 Etonogestrel 68 mg Sdrm Implant by Subdermal route. FEROSUL 325 mg (65 mg iron) Oral TabletIndications :Iron deficiency anemia, unspecified iron deficiency anemia type Take 1 Tablet by mouth daily. 30 Tablet 2 09/28/2022 fluticasone propionate (FLONASE) 50 mcg/actuation Nasl [place], Suspension 1 [place] in each nostril daily. 11/28/2024 Insulin [place], Disposable, (ULTICARE PEN NEEDLE) 32 gauge x 5/32 Misc Needle Use a new needle daily with forteo as directed 100 Each 11 07/27/2023 2:57 PM EDT 08/08/2022 loratadine (CLARITIN) 10 mg Oral TabletIndications :Seasonal allergic rhinitis, unspecified trigger Take 1 Tablet by mouth daily. 30 Tablet 2 11/16/2022 mirtazapine (REMERON) 45 mg Oral Tablet Take 45 mg by mouth nightly. 11/02/2023 montelukast (SINGULAIR) 10 mg Oral Tablet Take 10 mg by mouth daily. 09/14/2023 MUCINEX DM 60-1,200 mg Oral Tablet Sustained Release 12 hr Take 1 Tablet by mouth every 12 hours. 10/09/2023 nalOXone (NARCAN) 4 mg/actuation Nasl [place], Non-Aerosol 0.1 mL by Nasal route as needed for Opioid Reversal. 2 Each 12/04/2023 11:14 AM EDT 12/04/2023 Nebulizer Accessories (ALL FLOW 4000 KIT) [facility] MiscIndications:A cute bronchitis, unspecified organism,COPD, mild (HCC) NEbulizer kit to use with albuterol 1 Each 08/24/2020 Nebulizers [facility] Nebulizer machine. Use as directed. 1 Each 08/24/2020 nicotine (NICODERM CQ) 21 mg/24 hr TD Patch [address] 1 Patch onto the skin daily. 11/25/2024 omeprazole (PRILOSEC) 40 mg Oral Capsule, Delayed Release(E.C.)Liset cations:Gastroeso phageal reflux disease with esophagitis without hemorrhage Take 1 Capsule by mouth 2 times daily. 60 Capsule 11 01/21/2025 ondansetron (ZOFRAN-ODT) 4 mg Oral Tablet, Rapid Dissolve 12/31/2024 prazosin (MINIPRESS) 1 mg Oral Capsule Take 1 mg by mouth nightly. 11/02/2023 pregabalin (LYRICA) 200 mg Oral Capsule Take 1 Capsule by mouth 2 times daily. 60 Capsule 5 01/01/2025 risedronate (ACTONEL) 35 mg Oral Tablet SWALLOW 1 TAB WITH A FULL GLASS OF WATER ON AN EMPTY STOMACH ONCE WEEKLY.DO NOT LIE DOWN, EAT,DRINK, OR TAKE OTHER MEDS FOR AT LEAST 30 MINUTES 12/19/2024 SUMAtriptan (IMITREX) 100 mg Oral Tablet Take 1 at onset of headache and 1 more 2 hours later if pain persists. Do not exceed 2/d, 4/week or 9/month 9 Tablet 11 01/01/2025 topiramate (TOPAMAX) 100 mg Oral Tablet Take 100 mg by mouth nightly. 05/18/2024 traMADoL (ULTRAM) 50 mg Oral Tablet Take 50 mg by mouth 3 times daily as needed. 10/15/2024 UBRELVY 100 mg Oral Tablet TAKE 1 TABLET BY MOUTH ONCE NEEDED FOR MIGRAINE. DO NOT TAKE CONCURRENTLY WITH NURTEC 01/16/2025 VRAYLAR 1.5 mg Oral Capsule Take 1.5 mg by mouth daily. 11/09/2023 documented as of this encounter Discharge Disposition Disposition Code Departure Means Destination Home or Self Care documented in this encounter Plan of Treatment Upcoming Encounters Date Type Department Care Team (Late st Contact Info) Description 05/19/2025 12:30 PM EDT Office Visit [facility] Diabetes Melissa [address] [facility] [address] [place] [address] Estrellita Franco MD [address] [place], [place] [id number] 05/27/2025 1:30 PM EDT Office Visit [facility]O [facility] [address] [place] [address] Kimberly Pereyra MD [address] [place], [place] [id number] 07/08/2025 10:30 AM EDT Office Visit [facility] Neurology [facility] [address] [place] [address] Cecil Villegas MD [address] [place], [place] [id number] 10/08/2025 11:00 AM EST Appointment [facility] [address] [place] [address]. [address] [place] [address] 10/08/2025 11:15 AM EST Appointment [facility] [address] [place] [address] [address] [place] [address] Emily Cherry APRN [address] [place] [address] [address] [place], [place] [id number] documented as of this encounter Goals Goal Patient Goal Type Associated Problems Recent Progress Patient-Stated? Author Blood Pressure < 140/90 Blood Pressure 105/70(2024 10:55 AM EDT) No Hamida Moran APRN Maintain a healthy diet, exercise regularly and maintain an ideal body weight General No Johanna Guardado RMA Stay Tobacco Free Lifestyle No Johanna Guardado RMA documented as of this encounter Procedures Procedure Name Priority Date/Time Associated Diagnosis Comments SERUM PROTEIN ELECTROPHORESIS WITH REFLEX Routine 04/21/2025 10:09 AM EDT Iron deficiency anemia refractory to iron therapy Abnormal serum protein electrophoresis Iron deficiency anemia, unspecified iron deficiency anemia type Other neutropenia RETICULOCYTE PANEL DIAGNOSTIC Routine 04/21/2025 10:09 AM EDT Iron deficiency anemia refractory to iron therapy Abnormal serum protein electrophoresis Iron deficiency anemia, unspecified iron deficiency anemia type Other neutropenia IRON+TIBC Routine 04/21/2025 10:09 AM EDT Iron deficiency anemia refractory to iron therapy Abnormal serum protein electrophoresis Iron deficiency anemia, unspecified iron deficiency anemia type Other neutropenia KAPPA/LAMBDA FREE LIGHT CHAINS Routine 04/21/2025 10:09 AM EDT Iron deficiency anemia refractory to iron therapy Abnormal serum protein electrophoresis Iron deficiency anemia, unspecified iron deficiency anemia type Other neutropenia CBC WITH DIFF Routine 04/21/2025 10:09 AM EDT Iron deficiency anemia refractory to iron therapy Abnormal serum protein electrophoresis Iron deficiency anemia, unspecified iron deficiency anemia type Other neutropenia FERRITIN Routine 04/21/2025 10:09 AM EDT Iron deficiency anemia refractory to iron therapy Abnormal serum protein electrophoresis Iron deficiency anemia, unspecified iron deficiency anemia type Other neutropenia COMPREHENSIVE METABOLIC PANEL Routine 04/21/2025 10:09 AM EDT Iron deficiency anemia refractory to iron therapy Abnormal serum protein electrophoresis Iron deficiency anemia, unspecified iron deficiency anemia type Other neutropenia documented in this encounter Results * (ABNORMAL) SERUM PROTEIN ELECTROPHORESIS WITH REFLEX (04/21/2025 10:09 AM EDT) Albumin SPE 4.4 3.1 - 5.0 gm/dL 04/22/2025 12:21 PM EDT [facility] Alpha 1 Globulin 0.4(H) 0.1 - 0.3 gm/dL 04/22/2025 12:21 PM EDT [facility] Alpha 2 Globulin 0.8 0.5 - 1.0 gm/dL 04/22/2025 12:21 PM EDT [facility] Beta Globulin 0.6 0.5 - 1.4 gm/dL 04/22/2025 12:21 PM EDT [facility] Gamma Globulin NELLIE 0.7 0.6 - 1.6 gm/dL 04/22/2025 12:21 PM EDT [facility] Total Protein 6.6 6.4 - 8.3 gm/dL 04/22/2025 12:21 PM EDT [facility] SPE/IT Interp M-protein not apparent on serum protein electrophore sis. This test has been reviewed and approved by Giuseppe Scott MD. 04/22/2025 12:21 PM EDT [facility] Blood VENOUS BLOOD / Unknown Venipuncture / Unknown 04/21/2025 10:09 AM EDT 04/21/2025 10:19 AM EDT us Emily Cherry ENAMEL BURNER IMMUNOLOGY ORDERABLES Riri vides Result [facility] [address] , [address] [place] [id number] * RETICULOCYTE PANEL DIAGNOSTIC (04/21/2025 10:09 AM EDT) Retic Cnt Auto 2.2 0.9 - 2.5 % 04/21/2025 10:22 AM EDT [facility] Retic # 83.6 40.0 - 110.0 x10(3)/mcL 04/21/2025 10:22 AM EDT [facility] Imm. Retic Fraction % 8.3 3.1 - 17.6 % 04/21/2025 10:22 AM EDT [facility] Retic Hgb 32.0 28.0 - 38.0 pg 04/21/2025 10:22 AM EDT [facility] Blood VENOUS BLOOD / Unknown Venipuncture / Unknown 04/21/2025 10:09 AM EDT 04/21/2025 10:19 AM EDT Narrative [facility] - 04/21/2025 10:22 AM EDT Reticulocyte hemoglobin content (RET-He), a direct measurement of hemoglobinization of the developing reticulocyte, should be interpreted in conjunction with other indices. In various adult studies, values lower than 27-28pg (1,2) have demonstrated specificities for iron deficiency exceeding 90%. In a study of cancer patients, values exceeding 32pg (3) ruled out iron deficiency with a negative predictive value of 98.5%. RET-He has also demonstrated utility for monitoring response to iron replacement therapy (4). The immature reticulocyte fraction (IRF) assesses reticulocyte maturation by measuring the intensity of mRNA staining with the youngest reticulocytes having the highest content. (1)Jackie Y., et al. 2017. Int J Hematol 106:116-125. (2)Magy Hathaway., et al. 2017. Nutrients 9:450. (3)Bernie Moore, et al. 2014. Am J Clin Pathol 142:506-512. (4)Gary Martinez., et al. 2010. Blood 116:2953-4743. Emily Cherry ENAMEL BURNER HEMATOLOGY ORDERABLES Riri l Result Performing Organization Address City/[facility]/ZIP Co de Phone Number [place] [phone] * (ABNORMAL) IRON+TIBC (04/21/2025 10:09 AM EDT) Iron 42 30 - 160 mcg/dL 04/21/2025 7:58 PM EDT [facility] Transferrin 219 200 - 360 mg/dL 04/21/2025 7:58 PM EDT [facility] Transferrin Saturation 14(L) 20 - 50 % 04/21/2025 7:58 PM EDT [facility] TIBC 307 250 - 400 mcg/dL 04/21/2025 7:58 PM EDT [facility] Blood VENOUS BLOOD / Unknown Venipuncture / Unknown 04/21/2025 10:09 AM EDT 04/21/2025 10:19 AM EDT Emily Chrery APRN CHEMISTRY ORDERABLES Final Result Performing Organization Address [facility] Co de Phone Number [facility] [id number] , [place] [address] * (ABNORMAL) FERRITIN (04/21/2025 10:09 AM EDT) Ferritin 173(H) 30 - 150 ng/mL 04/21/2025 7:58 PM EDT [facility] [id number] [facility] Comment:The lower threshold of 30 is not statistically defined, nor internally validated. The threshold has been updated to more closely reflect a physiologic basis. Nola Esquivel, et al. Physiologically based serum ferritin thresholds for iron deficiency in children and non- women: a [place] National Health and Nutrition Examination Surveys (NHANES) serial cross-sectional study. Lancet Haematol 2021;8:e572-82. Blood VENOUS BLOOD / Unknown Venipuncture / Unknown 04/21/2025 10:09 AM EDT 04/21/2025 10:19 AM EDT Narrative [facility] [id number] [facility] - 04/21/2025 7:58 PM EDT Ingestion of harshil doses of biotin (>5 mg/day) taken within 8 hours of drawing blood sample can interfere with this immunoassay test. Emily Cherry ENAMEL BURNER CHEMISTRY ORDERABLES Final Result Performing Organization Address [facility] Co de Phone Number [facility] [id number] , [place] [address] * (ABNORMAL) COMPREHENSIVE METABOLIC PANEL (04/21/2025 10:09 AM EDT) Sodium 136 136 - 145 mmol/L 04/21/2025 10:44 AM EDT [facility] Potassium 3.4(L) 3.5 - 5.0 mmol/L 04/21/2025 10:44 AM EDT [facility] Chloride 104 98 - 107 mmol/L 04/21/2025 10:44 AM EDT [facility] Total CO2 21(L) 22 - 29 mmol/L 04/21/2025 10:44 AM EDT [facility] Anion Gap 11 7 - 16 mmol/L 04/21/2025 10:44 AM EDT [facility] Calcium 9.0 8.6 - 10.4 mg/dL 04/21/2025 10:44 AM EDT [facility] Glucose Lvl 88 70 - 99 mg/dL 04/21/2025 10:44 AM EDT [facility] BUN 9 6 - 20 mg/dL 04/21/2025 10:44 AM EDT [facility] Creatinine 0.91 0.51 - 1.30 mg/dL 04/21/2025 10:44 AM EDT [facility] Albumin 4.4 3.5 - 5.2 gm/dL 04/21/2025 10:44 AM EDT [facility] Total Protein 6.9 6.4 - 8.3 gm/dL 04/21/2025 10:44 AM EDT [facility] Bili Total 0.3 0.2 - 1.3 mg/dL 04/21/2025 10:44 AM EDT [facility] ALT 15 <=41 U/L 04/21/2025 10:44 AM EDT [facility] AST 16 <=40 U/L 04/21/2025 10:44 AM EDT [facility] Alk Phos 77 36 - 123 U/L 04/21/2025 10:44 AM EDT [facility] eGFR (CKD-EPIcr 2020) 79 >=60 mL/min/1.7 3 m2 04/21/2025 10:44 AM EDT [facility] Comment:Estimated GFR was ca lculated using the CKD-EPIcr (2020) equation refit without race. The equation is recommended by the National Kidney Foundation - [place] [employer] of Nephrology Task Force. Blood VENOUS BLOOD / Unknown Venipuncture / Unknown 04/21/2025 10:09 AM EDT 04/21/2025 10:19 AM EDT us Emily Cherry ENAMEL BURNER CHEMISTRY ORDERABLES Final Result [facility] [address] [place] [address] * (ABNORMAL) CBC WITH DIFF (04/21/2025 10:09 AM EDT) [facility] WBC 9.7 3.7 - 10.3 x10(3)/mcL 04/21/2025 10:22 AM EDT [facility] RBC 3.75(L) 3.90 - 5.20 x10(6)/mcL 04/21/2025 10:22 AM EDT [facility] Hgb 11.5 11.2 - 15.7 g/dL 04/21/2025 10:22 AM EDT [facility] Hct 36.3 34.0 - 45.0 % 04/21/2025 10:22 AM EDT [facility] MCV 96.8 80.0 - 100.0 fL 04/21/2025 10:22 AM EDT [facility] MCH 30.7 26.0 - 34.0 pg 04/21/2025 10:22 AM EDT [facility] MCHC 31.7 30.7 - 35.5 g/dL 04/21/2025 10:22 AM EDT [facility] RDW 13.2 <=14.9 % 04/21/2025 10:22 AM EDT [facility] Platelet 298 155 - 369 x10(3)/mcL 04/21/2025 10:22 AM EDT [facility] MPV 9.7 8.8 - 12.5 fL 04/21/2025 10:22 AM EDT [facility] Neut Percent 72.0 % 04/21/2025 10:22 AM EDT [facility] Comment:Neutrophils equals s egs plus bands Imm Gran% 0.4 % 04/21/2025 10:22 AM EDT [facility] Comment:Automated count of m etamyelocytes, myelocytes and promyelocytes. Lymph Percent 19.6 % 04/21/2025 10:22 AM EDT [facility] [place] Percent 5.8 % 04/21/2025 10:22 AM EDT [facility] Eos Percent 1.9 % 04/21/2025 10:22 AM EDT [facility] Baso Percent 0.3 % 04/21/2025 10:22 AM EDT [facility] Neut # 7.0(H) 1.6 - 6.1 x10(3)/[facility] 04/21/2025 10:22 AM EDT [facility] Comment:Neutrophils equals s egs plus bands IMMGRAN# 0.0 0.0 - 0.1 x10(3)/[facility] 04/21/2025 10:22 AM EDT [facility] Comment:Automated count of m etamyelocytes, myelocytes and promyelocytes. An absolute IG <0.1 is reported as 0.0. Lymph # 1.9 1.2 - 3.9 x10(3)/[facility] 04/21/2025 10:22 AM EDT [facility] [place] # 0.6 0.3 - 0.9 x10(3)/[facility] 04/21/2025 10:22 AM EDT [facility] Eos# 0.2 0.0 - 0.5 x10(3)/[facility] 04/21/2025 10:22 AM EDT [facility] Baso # 0.0 0.0 - 0.1 x10(3)/[facility] 04/21/2025 10:22 AM EDT [facility] Blood VENOUS BLOOD / Unknown Venipuncture / Unknown 04/21/2025 10:09 AM EDT 04/21/2025 10:19 AM EDT Emily Cherry ENAMEL BURNER HEMATOLOGY ORDERABLES Riri l Result [facility] [address] [place] [address] * (ABNORMAL) KAPPA/LAMBDA FREE LIGHT CHAINS (04/21/2025 10:09 AM EDT) Acme Free Light Chains 20.56(H) 3.30 - 19.40 mg/L 04/21/2025 8:16 PM EDT [facility] Lambda Free Light Chains 18.58 5.70 - 26.30 mg/L 04/21/2025 8:16 PM EDT [facility] Acme/Lambda FLC Ratio 1.11 0.26 - 1.65 04/21/2025 8:16 PM EDT [facility] Blood VENOUS BLOOD / Unknown Venipuncture / Unknown 04/21/2025 10:09 AM EDT 04/21/2025 10:19 AM EDT Emily Cherry ENAMEL BURNER CHEMISTRY ORDERABLES Final Result [facility] [address] [facility] , [place] [address] documented in this encounter Visit Diagnoses Diagnosis Iron deficiency anemia refractory to iron therapy Abnormal serum protein electrophoresis Other nonspecific findings on examination of blood Iron deficiency anemia, unspecified iron deficiency anemia type Other neutropenia documented in this encounter Additional Health Concerns Assessment Noted Time PHQ-9 Depression Total Score: 16 024 12:22 PM EDT PHQ-2 Depression Total Score: 6 06/10/20 24 12:22 PM EDT documented as of this encounter Care Teams Material Control Specialist Relationship Specialty Start Date End Date Adele Caruso APRN [address] [facility] [address] [place] [address] PCP - General Nurse Practitioner 12/01/23 [place] [address] [place] [address] [address] [place] [id number] 05/04/16 documented as of this encounter
--- OUTSIDE RECORDS SUMMARY | 2025-04-21 10:00 | XMS_ITS | Encounter Summary ---
Author Organization [place] [address] Care Team Providers Care Cabin Furnishings Installer Name Role Phone Gustavo Gonzalez MD Unavailable [phone] Adele Caruso APRN Primary Care Provider [phone] Reason for Visit * Reason Comments Follow-up Iron deficiency anem ia refractory to iron therapyWeight loss of 9lbs Fatigue Encounter Details Date Type Department Care Team (Latest Contact Info) Description 04/21/2025 10:00 AM EDT - 04/21/2025 11:59 PM EDT Hospital Encounter [facility] [address] [facility] [address] [place] [address] Neo Hassan MD [address] [place] [address] History of iron deficiency (Primary Dx); Elevated serum immunoglobulin free light chain level Discharge Disposition: Home or Self Care Social History Tobacco Use Types Packs/Day Years Used Date Smoking Tobacco: Some Days Cigarettes 0.5 27.2 Started: 12/25/1996; Last attempted to quit: 03/22/2024 Passive Smoke Exposure: Current Smokeless Tobacco: Never Quit: 06/04/2016 Comments:Currently using the nicotine patch Alcohol Use Standard Drinks/Week Comments No 0 (1 standard drink = 0.6 oz pur e alcohol) [facility] Utilities Answer Date Recorded In [...] Date Recorded PHQ-2 Total Score 6 06/10/2024 [facility] [place] of Occupat ional Health - Occupational Stress [...] things needed for daily living? Yes 03/01/2022 [facility] IP Transportation Answer D ate Recorded [...] on file documented as of this encounter Last Filed Vital Signs Vital Sign Reading Time Taken Comments Blood Pressure 105/70 04/21/2025 10:55 AM EDT Pulse 81 04/21/2025 10:55 AM EDT Temperature 36.3 C (97.4 F) 04/21/2025 10:55 AM EDT Respiratory Rate 16 04/21/2025 10:55 AM EDT Oxygen Saturation 100% 04/21/2025 10:55 AM EDT Inhaled Oxygen Concentration - - Weight 53.5 kg (118 lb) 04/21/2025 10:55 AM EDT Height - - Body Mass Index 19.05 02/13/2025 2:06 PM EDT documented in this encounter Functional Status * Is the person deaf or does he/she have serious difficulty hearing? Answer Date of Assessment Author No 06/11/2024 11:49 AM Pierre Jensen RN * Is the person blind or does he/she have serious difficulty seeing even when wearing glasses? Answer Date of Assessment Author No 06/11/2024 11:49 AM Pierre Jensen RN * Does this person have serious [...] Entry Date Author No 06/11/2024 11:49 AM EDT Dunn, E marietta M, RN documented in this encounter Medications at [...] 09/28/2022 fluticasone propionate (FLONASE) 50 mcg/actuation Nasl [place], Suspension 1 [place] in each nostril daily. 11/28/2024 Insulin [place], Disposable, (ULTICARE PEN NEEDLE) 32 gauge x 5/32 [facility] Use a new needle daily with [...] hours. 10/09/2023 nalOXone (NARCAN) 4 mg/actuation Nasl [place], Non-Aerosol 0.1 mL by Nasal route as needed for Opioid Reversal. 2 Each 12/04/2023 11:14 AM EDT 12/04/2023 Nebulizer Accessories (ALL FLOW 4000 KIT) [facility] MiscIndications:A cute bronchitis, unspecified organism,COPD, mild (HCC) NEbulizer kit to use with albuterol 1 Each 08/24/2020 Nebulizers [facility] Nebulizer machine. Use as directed. 1 Each [...] or Self Care documented in this encounter Progress Notes * Neo Hassan MD - 04/21/2025 10:30 AM EDT Images from the original note were not included. Patient: Charmaine Stevenson [facility]: [id number] Date of : 1980 Age: 45 y.o. Date of Service: 04/21/2025 HEMATOLOGY/ONCOLOGY FOLLOW UP VISIT Primary Oncologist: No care steaming cabinet tender to display DIAGNOSIS & TREATMENT HISTORY: Iron deficiency anemia, minimal response to PO iron CURRENT TREATMENT: IV Iron Sep 2024 (venofer 1000mg total) INTERVAL HISTORY: Charmaine Stevenson is here for follow up She still feels very fatigued much of the time No recent illnesses noted Has noted some unintentional weight loss she thinks, but says appetite is good. Eating well. No abdpain or constipation or diarrhea MEDICATIONS: Current Outpatient Medications Medication acetaminophen 325 mg Oral Tab ADDERALL XR 15 mg Oral Capsule, Sust. Release 24 hr albuterol (PROVENTIL HFA;VENTOLIN HFA) 90 mcg/actuation Inhl HFA Aerosol Inhaler albuterol (PROVENTIL) 2.5 mg /3 mL (0.083 %) Inhl Solution for Nebulization apixaban 5 mg (74 tabs) Oral Tablets, Dose Pack budesonide-formoteroL (SYMBICORT) 160-4.5 mcg/actuation Inhl HFA Aerosol Inhaler busPIRone (BUSPAR) 10 mg Oral Tablet Calcium Carbonate-Vitamin D3 600 mg-10 mcg (400 unit) Oral Tablet cyclobenzaprine (FLEXERIL) 10 mg Oral Tablet diclofenac (VOLTAREN) 1 % Top Gel diclofenac epolamine (FLECTOR) 1.3 % TD Patch 12 hr ELIQUIS 5 mg Oral Tablet ergocalciferol (DRISDOL) 1,250 mcg (50,000 unit) Oral Capsule Etonogestrel 68 mg Sdrm Implant FEROSUL 325 mg (65 mg iron) Oral Tablet fluticasone propionate (FLONASE) 50 mcg/actuation Nasl [place], Suspension Insulin [place]kiff, Disposable, (ULTICARE PEN NEEDLE) 32 gauge x 5/32 [facility] Need[facility] lidocaine (LIDODERM) 5 % Top Adhesive Patch, Medicated loratadine (CLARITIN) 10 mg Oral Tablet mirtazapine (REMERON) 45 mg Oral Tablet montelukast (SINGULAIR) 10 mg Oral Tablet MUCINEX DM 60-1,200 mg Oral Tablet Sustained Release 12 hr nalOXone (NARCAN) 4 mg/actuation Nasl [place], Non-Aerosol Nebulizer Accessories (ALL FLOW 4000 KIT) [facility] Nebulizers [facility] nicotine (NICODERM CQ) 21 mg/24 hr TD Patch 24 hr omeprazole (PRILOSEC) 40 mg Oral Capsule, Delayed Release(E.C.) ondansetron (ZOFRAN-ODT) 4 mg Oral Tablet, Rapid Dissolve prazosin (MINIPRESS) 1 mg Oral Capsule pregabalin (LYRICA) 200 mg Oral Capsule risedronate (ACTONEL) 35 mg Oral Tablet SUMAtriptan (IMITREX) 100 mg Oral Tablet topiramate (TOPAMAX) 100 mg Oral Tablet traMADoL (ULTRAM) 50 mg Oral Tablet UBRELVY 100 mg Oral Tablet VRAYLAR 1.5 mg Oral Capsule No current facility-administered medications for this encounter. PHYSICAL EXAM: Vitals: 04/21/25 1055 BP: 105/70 Pulse: 81 Resp: 16 Temp: 97.4 ??F (36.3 ??C) SpO2: 100% Wt Readings from Last 3 Encounters: 04/21/25 118 lb (53.5 kg) 02/13/25 114 lb (51.7 kg) 02/09/25 118 lb (53.5 kg) ECO Physical Exam Constitutional: General: She is not in acute distress. Appearance: She is not toxic-appearing. HENT: Head: Normocephalic and atraumatic. Eyes: General: No scleral icterus. Right eye: No discharge. Left eye: No discharge. Pulmonary: Effort: Pulmonary effort is normal. No respiratory distress. Skin: General: Skin is dry. Coloration: Skin is not jaundiced or pale. Neurological: Mental Status: She is alert. Psychiatric: Mood and Affect: Mood normal. Behavior: Behavior normal. LABORATORY DATA: WBC Date/Time Value Ref Range Status 04/21/2025 10:09 AM 9.7 3.7 - 10.3 x10(3)/mcL Final 10/18/2016 09:39 AM 10.6 4.0 - 11.0 x10(3)/mcL Final 06/23/2016 12:00 AM 8.1 X10(3)/MCL Final Hgb Date/Time Value Ref Range Status 04/21/2025 10:09 AM 11.5 11.2 - 15.7 g/dL Final 10/18/2016 09:39 AM 12.5 12.0 - 15.6 gm/dL Final Platelets Date/Time Value Ref Range Status 06/23/2016 12:00 AM 345 X10(3)/MCL Final Platelet Date/Time Value Ref Range Status 04/21/2025 10:09 AM 298 155 - 369 x10(3)/mcL Final 10/18/2016 09:39 AM 419 144 - 423 x10(3)/mcL Final Neut# Date/Time Value Ref Range Status 10/18/2016 09:39 AM 7.8 (H) 1.8 - 7.7 x10(3)/mcL Final Neut # Date/Time Value Ref Range Status 04/21/2025 10:09 AM 7.0 (H) 1.6 - 6.1 x10(3)/mcL Final Comment: Neutrophils equals segs plus bands 04/22/2024 07:34 AM 0.9 (L) 1.6 - 6.1 x10(3)/mcL Final 07/06/2018 07:48 PM 3.9 1.8 - 7.7 x10(3)/mcL Final BUN Date/Time Value Ref Range Status 04/21/2025 10:09 AM 9 6 - 20 mg/dL Final 10/18/2016 09:39 AM 11 6 - 20 mg/dL Final Creatinine Date/Time Value Ref Range Status 04/21/2025 10:09 AM 0.91 0.51 - 1.30 mg/dL Final 10/18/2016 09:39 AM 0.87 0.51 - 1.30 mg/dL Final Sodium Date/Time Value Ref Range Status 04/21/2025 10:09 AM 136 136 - 145 mmol/L Final 10/18/2016 09:39 AM 140 136 - 145 mmol/L Final Potassium Date/Time Value Ref Range Status 04/21/2025 10:09 AM 3.4 (L) 3.5 - 5.0 mmol/L Final 10/18/2016 09:39 AM 4.6 3.5 - 5.0 mmol/L Final Calcium Date/Time Value Ref Range Status 04/21/2025 10:09 AM 9.0 8.6 - 10.4 mg/dL Final 10/18/2016 09:39 AM 9.6 8.6 - 10.2 mg/dL Final Calcium Ionized Date/Time Value Ref Range Status 12/04/2023 03:35 AM 1.16 1.12 - 1.32 mmol/L Final Phosphorus Date/Time Value Ref Range Status 05/15/2024 02:24 PM 4.0 2.5 - 4.5 mg/dL Final Magnesium Date/Time Value Ref Range Status 06/10/2024 10:24 PM 1.8 1.6 - 2.4 mg/dL Final LDH Date/Time Value Ref Range Status 03/22/2024 08:34 PM 232 (H) 135 - 214 U/L Final Uric Acid Date/Time Value Ref Range Status 06/16/2021 11:14 AM 2.7 2.4 - 5.7 mg/dL Final Bili Total Date/Time Value Ref Range Status 04/21/2025 10:09 AM 0.3 0.2 - 1.3 mg/dL Final 10/18/2016 09:39 AM 0.4 0.1 - 1.3 mg/dL Final Bili Direct Date/Time Value Ref Range Status 04/23/2024 06:09 AM <0.2 0.0 - 0.3 mg/dL Final AST Date/Time Value Ref Range Status 04/21/2025 10:09 AM 16 <=40 U/L Final 10/18/2016 09:39 AM 18 <=40 IU/L Final ALT Date/Time Value Ref Range Status 04/21/2025 10:09 AM 15 <=41 U/L Final 10/18/2016 09:39 AM 26 <=41 IU/L Final Alk Phos Date/Time Value Ref Range Status 04/21/2025 10:09 AM 77 36 - 123 U/L Final 10/18/2016 09:39 AM 93 35 - 104 IU/L Final TSH Date/Time Value Ref Range Status 05/15/2024 02:24 PM 1.280 0.270 - 4.200 mcIU/mL Final 10/18/2016 09:39 AM 1.100 0.270 - 4.200 mcIU/mL Final IMAGES: No results found. PATHOLOGY & OTHER INVESTIGATIONS: Lab Results Component Value Date FINALDX 10/18/2024 A) Lower esophagus, biopsy: - Squamous and gastric type columnar mucosa with chronic inflammation. - Negative for Robison's mucosa. B) Mid esophagus, biopsy: - Squamous mucosa with chronic inflammation. - Negative for Robison's mucosa. - No evidence of eosinophilic esophagitis. FINALDX 04/18/2024 STOMACH, GASTRIC BIOPSY: - Gastric mucosa with focal activity and reactive epithelial changes. - Negative for H. pylori organisms by H&E slide, confirmed immunohistochemically. - No evidence of activity, intestinal metaplasia, dysplasia or malignancy. ASSESSMENT & PLAN #History of Iron Deficiency Anemia refractory to oral iron -chronic anemia since November 2023, and had low iron levels in February 2024. -had been chronically on oral iron for year she said --no bleeding by histrory. Did have EGD in March 2024 which was benign. 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 -normal k/l ratio --Repeat SPEP done 10/21/24 showed no M-spike, K/L ratio still normal though kappa very slightly elevated -->sent repeat SPEP and sFLC again today; if that is still within normal, can stop monitoring #Hypokalemia -slight, K 3.4, same Sep 2024 -already on a very large number of medications -recommended that she try to maximize potassium rich foods like bananas and potatoes #Unintentional weight loss Weights 118, had weighed previously 130s lbs, but appears weight has flucutated and has been a similar weight before Appetite is good, no abd pain or bowel issues noted -recommended monitoring #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 Neo Hassan MD Hematology and Medical Oncology [facility] documented in this encounter Plan of Treatment Upcoming Encounters Date Type Department Care Team (Late st Contact Info) Description 05/19/2025 12:30 PM EDT Office Visit [facility] [address] [place] [phone] Estrellita Franco MD [address] [place] [id number] 05/27/2025 1:30 PM EDT Office Visit [facility] [address] [place] [phone] Kimberly Pereyra MD [address] [facility] [place] [id number] 07/08/2025 10:30 AM EDT Office Visit [facility] Neurology [facility] [address] [place] [id number] Cecil Villegas MD [address] [facility] [address] [place] [address] 10/08/2025 11:00 AM EST Appointment [facility] [address] [place] [phone] 10/08/2025 11:15 AM EST Appointment [facility] [address] [place] [address] Emily Cherry APRN [address] [facility] [address] [place], [place] [id number] documented as of this encounter Goals Goal Patient Goal Type Associated Problems Recent Progress Patient-Stated? Author Blood Pressure < 140/90 Blood Pressure 105/70(2024 10:55 AM EDT) No Hamida Moran APRN Maintain a healthy diet, exercise regularly and maintain an ideal body weight General No Johanna Guardado RMA Stay Tobacco Free Lifestyle Johanna Hernandez RMA documented as of this encounter Visit Diagnoses Diagnosis History of iron deficiency- Primary Personal history of diseases of blood and blood-forming organs Elevated serum immunoglobulin free light chain level Other nonspecific findings on examination of blood documented in this encounter Discontinued Medications Medication Sig Discontinue Reason Start Date End Da te apixaban 5 mg (74 tabs) Oral Tablets, Dose Pack Take 1 Tablet by mouth 2 times daily. ELIQUIS Cancelled by 06/11/2024 04/21/2025 documented as of this encounter Additional Health Concerns Assessment Noted Time PHQ-9 Depression Total Score: 16 024 12:22 PM EDT PHQ-2 Depression Total Score: 6 09/16/20 24 12:22 PM EDT documented as of this encounter Care Teams Cabin Furnishings Installer Relationship Specialty Start Date End Date Adele Caruso APRN [address] [facility] [address] [place] [phone] PCP - General Nurse Practitioner 12/01/23 Gustavo Gonzalez MD [address] [place] [address] [address] [place] [address] 05/04/16 documented as of this encounter
--- OUTSIDE RECORDS SUMMARY | 2025-05-14 10:46 | XMS_ITS | Clinical Summary ---
Author Organization [facility] Address [address] [place] [address] Phone Care Team Providers Care Civil Engineer Land Development Name Role Phone Unavailable Unavailable Conditions or Problems No information available. Medications No information available. Medications Administered No information available. Allergies, Adverse Reactions, Alerts No information available. Results No information available. Plan of Care No information available. Procedures No information available. Vital Signs No information available. Immunizations No information available. Advance Directives No information available.
--- OUTSIDE RECORDS SUMMARY | 2025-05-14 10:47 | XMS_ITS | Clinical Summary ---
Author Organization [facility] Address [address] [place] [address] Phone Care Team Providers Care Animation Artist Name Role Phone Gustavo Gonzalez MD Unavailable [phone] Adele Caruso APRN Primary Care Provider [phone] Allergies Active Allergy Reactions Criticality Noted Date Comments Doxycycline Dermatitis 03/02/2022 Etodolac Hives,Itching,Rash 07/14/2023 Gabapentin Diarrhea,Itching Low 10/09/2018 Penicillins Hives 07/06/2021 Medications * This document contains information received from the source organization and may not represent a complete record from that organization. Etonogestrel 68 mg Sdrm Implant by Subdermal route. Active Nebulizer Accessories (ALL FLOW 4000 KIT) [facility] [place]ication s:Acute bronchitis, unspecified organism,COPD, mild (HCC) NEbulizer kit to use with albuterol 1 Each 08/24/20 Active Nebulizers [facility] Nebulizer machine. Use as directed. 1 Each 11/30/20 20 Active Insulin Vowinckel, Disposable, (ULTICARE PEN NEEDLE) 32 gauge x 5/32 Misc Needle Use a new needle daily with forteo as directed 100 Each 11 3 2:57 PM EDT 08/08/20 22 Active FEROSUL 325 mg (65 mg iron) Oral TabletIndicati ons:Iron deficiency anemia, unspecified iron deficiency anemia type Take 1 Tablet by mouth daily. 30 Tablet 2 09/28/19 23 Active albuterol (PROVENTIL HFA;VENTOLIN HFA) 90 mcg/actuation Inhl HFA Aerosol InhalerIndicat ions:COPD, mild (HCC) Inhale 2 Puffs into the lungs 4 times daily. 18 g 5 10/31/19 23 Active albuterol (PROVENTIL) 2.5 mg /3 mL (0.083 %) Inhl Solution for NebulizationIn dications:Acut e bronchitis, unspecified organism,COPD, mild (HCC) Inhale the contents of 1 vial (3 ml) by nebulization every 4 hours as needed for wheezing. 180 mL 2 11/11/19 23 Active budesonide-for moteroL (SYMBICORT) 160-4.5 mcg/actuation Inhl HFA Aerosol InhalerIndicat ions:Acute bronchitis, unspecified organism,COPD, mild (HCC) Inhale 2 Puffs into the lungs 2 times daily. 10.2 g 2 11/15/19 23 Active loratadine (CLARITIN) 10 mg Oral TabletIndicati ons:Seasonal allergic rhinitis, unspecified trigger Take 1 Tablet by mouth daily. 30 Tablet 2 11/16/19 23 Active diclofenac (VOLTAREN) 1 % Top GelIndications :Cervical spondylosis without myelopathy Apply 2-4 g topically 4 times daily. Apply to sore chest area 300 g 2 06/29/20 23 Active busPIRone (BUSPAR) 10 mg Oral Tablet Take 10 mg by mouth 2 times daily. 11/02/19 24 Active VRAYLAR 1.5 mg Oral Capsule Take 1.5 mg by mouth daily. 11/09/19 24 Active ADDERALL XR 15 mg Oral Capsule, Sust. Release 24 hr Take 15 mg by mouth every morning. 11/02/19 24 Active mirtazapine (REMERON) 45 mg Oral Tablet Take 45 mg by mouth nightly. 11/02/19 24 Active montelukast (SINGULAIR) 10 mg Oral Tablet Take 10 mg by mouth daily. 09/14/20 23 Active prazosin (MINIPRESS) 1 mg Oral Capsule Take 1 mg by mouth nightly. 11/02/19 24 Active nalOXone (NARCAN) 4 mg/actuation Nasl [place], Non-Aerosol 0.1 mL by Nasal route as needed for Opioid Reversal. 2 Each 4 11:14 AM EDT 12/04/19 24 Active acetaminophen 325 mg Oral Tab Take 650 mg by mouth every 6 hours as needed for Pain, Fever or Headaches. 12/08/19 24 Active MUCINEX DM 60-1,200 mg Oral Tablet Sustained Release 12 hr Take 1 Tablet by mouth every 12 hours. 10/09/19 24 Active topiramate (TOPAMAX) 100 mg Oral Tablet Take 100 mg by mouth nightly. 05/18/20 24 Active traMADoL (ULTRAM) 50 mg Oral Tablet Take 50 mg by mouth 3 times daily as needed. 10/15/19 25 Active Calcium Carbonate-Lissa min D3 600 mg-10 mcg (400 unit) Oral Tablet 12/25/19 25 Active cyclobenzaprin e (FLEXERIL) 10 mg Oral Tablet Take 10 mg by mouth 3 times daily as needed. for muscle spasms 12/22/19 25 Active fluticasone propionate (FLONASE) 50 mcg/actuation Nasl [place], Suspension 1 [place] in each nostril daily. 11/29/19 25 Active nicotine (NICODERM CQ) 21 mg/24 hr TD Patch [address] 1 Patch onto the skin daily. 11/26/19 25 Active ondansetron (ZOFRAN-ODT) 4 mg Oral Tablet, Rapid Dissolve 01/01/20 25 Active risedronate (ACTONEL) 35 mg Oral Tablet SWALLOW 1 TAB WITH A FULL GLASS OF WATER ON AN EMPTY STOMACH ONCE WEEKLY.DO NOT LIE DOWN, EAT,DRINK, OR TAKE OTHER MEDS FOR AT LEAST 30 MINUTES 12/20/19 25 Active pregabalin (LYRICA) 200 mg Oral Capsule Take 1 Capsule by mouth 2 times daily. 60 Capsule 5 01/02/20 25 Active SUMAtriptan (IMITREX) 100 mg Oral Tablet Take 1 at onset of headache and 1 more 2 hours later if pain persists. Do not exceed 2/d, 4/week or 9/month 9 Tablet 11 01/02/20 25 Active UBRELVY 100 mg Oral Tablet TAKE 1 TABLET BY MOUTH ONCE NEEDED FOR MIGRAINE. DO NOT TAKE CONCURRENTLY WITH NURTEC 01/17/20 25 Active ELIQUIS 5 mg Oral Tablet Take 5 mg by mouth 2 times daily. 01/16/20 25 Active omeprazole (PRILOSEC) 40 mg Oral Capsule, Delayed Release(E.C.)I ndications:Gas troesophageal reflux disease with esophagitis without hemorrhage Take 1 Capsule by mouth 2 times daily. 60 Capsule 11 01/22/20 25 Active diclofenac epolamine (FLECTOR) 1.3 % TD Patch [address] 1 Patch onto the skin 2 times daily as needed. 30 Patch 04/01/20 25 Active ergocalciferol (DRISDOL) 1,250 mcg (50,000 unit) Oral CapsuleIndicat ions:Vitamin D deficiency Take 1 Capsule by mouth once a week. 12 Capsule 1 04/15/20 25 Active lidocaine (LIDODERM) 5 % Top Adhesive Patch, MedicatedIndic ations:Myofasc ial pain Place 1 Patch onto the skin daily. Apply for 12 hours, remove for 12 hours, then apply new patch 30 Patch 2 05/12/20 25 Active ergocalciferol (VITAMIN D) 1,250 mcg (50,000 unit) Oral CapsuleIndicat ions:Vitamin D deficiency Take 1 Capsule by mouth once a week. 12 Capsule 1 10/22/19 25 025 Discontinued Active Problems Patient Care Coordination No te Formatting of this note migh t be different from the original. DISMISSED SEP SPINE 11/29/23 - Multiple No Shows [facility] - Rick Mercado MD Interventional Pain Protocol: NS Appt 01/25/23 Letter Sent, NS VV 09/14/23 Letter Sent and 10/06/23, SNC 09/13/23 Chriss report completed (EVERY 3 MONTHS) ( 09/13/2023 ) Pharmacy: [facility] [place] [address] - [phone] [facility] - [phone] Trint[employer] approved 07/06/2017-09/24/2039 08/25/2022 No Show Ness Ch and mailed letter AW - final warning 03/30/2022 No Show Mina Dexter Second MyChart and mailed letter AW 03/01/2022 No Show Mina Dexter - MyChart and mailed letter AW 01/11/2022 No Show Mina Dexter Problem Noted Date Diagnosed Date Hyperammonemia 06/11/2024 Altered mental status, unspe cified altered mental status type 06/09/2024 Altered mental state 06/09/2024 Biliary colic 06/04/2024 Osteoporosis, postmenopausal 05/15/2024 Assessment & Plan (10/22/2024 1:12 PM EST): lab workup for bone/mineral health showed low vit D discussed bisphosphonate following forteo is appropriate, though annual infusion would be the preferred route due to GERD will cont annual reclast Assessment & Plan (05/15/2024 2:00 PM EDT): reviewed outside visit record, but will also need outside DXA and rx history will do lab workup for bone/mineral health discussed bisphosphonate following forteo is appropriate, though annual infusion would be the preferred route due to GERD will check CTX also, for baseline treat pending lab results and obtaining records Fever in adult 04/21/2024 Abnormal liver enzymes 04/19/2024 Acute deep vein thrombosis ( DVT) of brachial vein of right upper extremity 04/18/2024 Epigastric pain 04/17/2024 Substance abuse 04/16/2024 Migraine without aura and wi thout status migrainosus, not intractable 04/12/2024 Opioid use disorder, severe, in sustained remiss ion 04/02/2024 Brachial plexopathy 2024 Left arm pain 2024 Borrelia burgdorferi IgM antibody positive 03/31 Generalized weakness 03/26/2024 Lyme mononeuritis multiplex 03/26/2024 Left arm weakness 03/22/2024 Weakness 03/22/2024 History of heroin use 03/22/2024 Pneumothorax 12/02/2023 Pneumomediastinum 12/01/2023 Right cervical radiculopathy 07/13/2022 Migraine with aura and witho ut status migrainosus, not intractable 05/05/2022 Overview (05/20/2022): Reports hx of migraines Previous on Topamax Discussed interaction of control with topamax. Pt states she understands this can decrease the effectiveness of the control and has accepted this risk. CT Head 2021: no acute findings Assessment & Plan (05/20/2022 10:24 AM EDT): -Discussed interaction of control with topamax. Pt states she understands this can decrease the effectiveness of the control and has accepted this risk. -continue topamax and titration up to decrease frequency of migraines Assessment & Plan (05/05/2022 1:46 PM EDT): Will restart topamax (pt ran out of medication) and titrate up dose: Take half of the 50mg tablet for one week then take the whole 50mg tablet the following week. Then can take two of the 50mg tablets to equal 100mg total for the following week. Continue 100mg daily until follow up -follow up in 3 weeks for OMT and headaches -do not take mobic for the next two days due to in practice office associate of toradol -drink lots of water -use the muscle stretches given -complete headache journal and bring to follow up -continue OMT in office as needed Chronic right shoulder pain 05/05/2022 Overview (05/20/2022): -was helping father and injured right shoulder in February 2022 -prednisone course x2 given but pain returned -reports feeling like her shoulder blade on the right side is sticking out -OMT in office x1, limited benefit seen -home stretches daily -Mobic and muscle relaxer given Assessment & Plan (05/20/2022 10:20 AM EDT): -prednisone, mobic, muscle relaxer, OMT, home stretches tried with our office and patient is reporting no relief, worsening of pain -will obtain XR given continued pain. May need MRI for further evaluation given reported hx of trauma to shoulder in February, although shoulder joint strength appears intact and pain does not seem to be in the joint -discussed PT vs orthopedics vs pain management referral. Patient choose to go to orthopedics for evaluation and input into her pain Assessment & Plan (05/05/2022 1:43 PM EDT): -continue PRN use of mobic and muscle relaxer at night -given stretches to do at home -continue OMT treatments in office as long as pt feels they are beneficial -if continues to have issues in the coming weeks-months consider XR vs referral Closed displaced fracture of third metatarsal bone of right foot 10/11/2021 Overview (10/11/2021): Added automatically from request for surgery [id number] Mechanical breakdown of inte rnal fixation device of bones of foot 10/11/2021 Overview (10/11/2021): Added automatically from request for surgery [id number] Closed displaced fracture of second metatarsal bone of right foot 07/14/2021 Overview (07/14/2021): Added automatically from request for surgery [id number] Pain in both feet 07/14/2021 Overview (07/14/2021): Added automatically from request for surgery [id number] Bunion of great toe of left foot 01/29/2021 Overview (01/29/2021): Added automatically from request for surgery [id number] Tendonitis, Achilles, right 01/20/2021 Hx of hepatitis C 09/26/2019 Overview (02/02/2021): F0-F1. Completed 8 wk course [place] Oct 2020 HTN (hypertension) 05/05/2019 Overview (05/05/2019): Last Assessment & Plan: Hospital Course No acute changes during hospitalization. BP was well controlled on metoprolol succinate 25 mg. Assessment and Plan for 08/31/2018 BP well controlled on current meds - Continue metoprolol succinate 25 mg. Opioid dependence in remission 01/25/2019 Heroin use disorder, moderate, in early remissio n 08/29/2018 Overview (05/05/2019): Last Assessment & Plan: Abstinent for just over 3 months. Motivated to maintain abstinence. Understands the risks of relapse in the setting of opioid use for her acute pain and will be minimizing PRN use as possible -offer addiction medicine consultation given need for opioid pain control -multimodal pain therapy with Mobic, amitriptyline, pregabalin Chronic viral hepatitis B wi thout delta agent and without coma 07/09/2018 Overview (08/11/2020): Last Assessment & Plan: Presently referred to GI as outpatient for treatment. Has not yet started treatment due to ongoing issues with osteomyelitis. Transaminases normal. Will need repeat viral load as outpatient to assess whether she has cleared the infection naturally -no acute issues She appears to have spontaneously cleared this on labs Jul 2020 Moderate episode of recurrent major depressive d isorder 01/25/2017 SYDNEE (generalized anxiety disorder) 11/08/2016 Vitamin D deficiency 10/20/2016 Assessment & Plan (10/22/2024 1:11 PM EST): start back on vit D 50,000 IU weekly ok to take in addition to daily ca/D Assessment & Plan (05/15/2024 1:58 PM EDT): will check level of both 25-OH and 1,25. replete or treat as needed pending lab results Gastroesophageal reflux dise ase with esophagitis without hemorrhage 10/20/2016 Iron deficiency anemia refractory to iron therap y 10/20/2016 COPD, mild 10/20/2016 Tobacco use 10/18/2016 Overview (12/09/2016): stop Other acquired deformities of left foot Resolved Problems Problem Noted Date Diagnosed Date Resolved Date Right ankle pain 01/20/2021 02/23/2021 Status post left foot surgery 04/01/2019 09/23/2019 Bacteremia 03/19/2019 09/23/2019 Other fracture of left foot, initial encounter for closed fracture 03/19/2019 09/23/2019 Acute hematogenous osteomyelitis of left foot 12/10/19 19 09/23/2019 Assessment & Plan (01/05/2019 1:25 PM EDT): Has started physical therapy. Foot is looking good. Continue to closely monitor. Will continue pain meds since just started PT but will plan on decreasing next visit. Assessment & Plan (12/09/2018 10:28 PM EDT): Significant worsening of infection. Pt did not receive antibiotics that were called in prior to the weekend, and foot started worsening over the weekend. Recommend return to hospital for IV antibiotics. Pt states she wants to go home and pack and will then head to since that is where her surgery took place. Counseled pt that if she did not get iv antibiotics she would likely loose her foot or worse given possible symptoms of early sepsis - counseled against doing outpt antibiotics at this time. Dehydration 07/09/2018 08/13/2018 Pleuritic chest pain 08/14/2017 019 Chronic seasonal allergic rhinitis 07/10/2017 09/23/2019 Insomnia, persistent 01/25/2017 019 Oligodontia 11/30/2016 09/23/2019 Marfan's syndrome with skeletal manifestation 11/08/19 17 11/30/2016 Overview (11/08/2016): Possible, rule out. Wide arm spam and slender long fingers. Chronic low back pain 11/08/20162018 Dermatitis 11/08/2016 04/25/2019 Palpitations 10/20/2016 09/23/2019 Encounters Date Type Department Care Team Description 05/12/2025 Refill [facility] [address] [place] [id number] Antwan Puckett, DPM Medication Refill 04/21/2025 10:00 AM EDT - 04/21/2025 11:59 PM EDT Hospital Encounter [facility] [address] [place] [address] Neo Hassan MD History of iron deficiency (Primary Dx); Elevated serum immunoglobulin free light chain level Discharge Disposition: Home or Self Care 04/21/2025 10:00 AM EDT - 04/21/2025 11:59 PM EDT Hospital Encounter [facility] [address] [place] [address] Iron deficiency anemia refractory to iron therapy; Abnormal serum protein electrophoresis; Iron deficiency anemia, unspecified iron deficiency anemia type; Other neutropenia Discharge Disposition: Home or Self Care 04/16/2025 Travel 04/15/2025 Refill [facility] [address] [facility] Building [address] [place] [address] Estrellita Franco MD Medication Refill 03/26/2025 Refill [facility] [address] Diiulio, Antwan P, DPM Medication Refill 02/20/[address] [address] Diiulio, Antwan P, DPM Medication Refill 02/20/[address] [address] Diiulio, Antwan P, DPM Other (refill) 02/18/[address] [place] [address] Diiulio, Antwan P, DPM Medication Refill 02/13/2025 2:25 PM EDT Ancillary Procedure [address] [address] Diiulio, Antwan P, DPM Right foot pain 02/13/2025 2:00 PM EDT Office Visit [address] [address] Diiulio, Antwan P, DPM Right foot pain (Primary Dx); Contusion of right foot, initial encounter 02/13/2025 Orders Only [address] [address] Heidi Genao MA Myofascial pain 02/11/2025 Travel from Last 3 Months Immunizations Immunization Administration Dates Next Due Hepatitis A, Adult 05/03/2021,10/20/2020 021 Tdap 06/23/2016 Surgical History Surgery Date Site/Laterality Comments UPPER GASTROINTESTINAL ENDOSCOPY 01/14/2019 TENOTOMY ACHILLES TENDON 01/11/2021 Doctor Olamide TOE SURGERY 03/16/2021 Left Decompression osteotomy left first metatarsal with joint debridement and cartilage repair; Surgeon: Antwan Puckett DPM; Location: [facility]; Service: Orthopedics Medical devices from this surgery are in the Medical Devices section. FOOT SURGERY 02/23/2019 - 03/24/2019 Left total of 11 surgeries on Left foot FOOT FRACTURE SURGERY 02/23/2019 - 03/24/2019 TOE SURGERY 07/20/2021 Right Open reduction internal fixation right second metatarsal fracture; Surgeon: Antwan Puckett DPM; Location: [facility]; Service: Orthopedics Medical devices from this surgery are in the Medical Devices section. TOE SURGERY 10/23/2021 Right Open reduction internal fixation right third metatarsal, removal of plate right foot; Surgeon: Antwan Puckett DPM; Location: [facility]; Service: Orthopedics Medical devices from this surgery are in the Medical Devices section. FOOT SURGERY 10/23/2021 Right Surgeon: Antwan Puckett DPM; Location: [facility]; Service: Orthopedics Medical devices from this surgery are in the Medical Devices section. IR GUIDED INJECT TRANSFORAMINAL EPIDUR CER OR THOR SINGLE LVL 09/07/2022 IR GUIDED INJECT TRANSFORAMINAL EPIDUR CER OR THOR SINGLE LVL 09/07/2022 Gabriel Riley MD [facility] FL GUIDED LUMBAR PUNCTURE DIAGNOSTIC 03/24/2024 FL GUIDED LUMBAR PUNCTURE DIAGNOSTIC 03/24/2024 [facility] Medical History Medical History Date Comments COPD (chronic obstructive pu lmonary disease) (HCC) GERD (gastroesophageal reflu x disease) Anemia chronic, saw Dr. Freedman 05-20-24 Lumbar vertebral fracture (HCC) Anxiety Depression Bipolar 1 disorder (HCC) Difficulty walking 08/13/2018 Began with os teomyelitis in my left foot Bunion of great toe of left foot 01/29/2021 Bunion of great toe of left foot Bunion of great toe of left foot Bunion of great toe of left foot Bunion of great toe of left foot Asthma Pneumonia CT 07/08/2021 Hepatitis C 10/2020 F0 F 1. Completed an 8-week course of Mavyret October 2020 Palpitations Heart murmur denies. says res olved Encounter for blood transfusion Clotting disorder clot PICC line in March 2024 on Annelise Borrelia burgdorferi IgM ant ibody positive 2023 Family History Medical History Relation Name Comments Glaucoma Daughter Asthma Father Neeraj Stevenson COPD Father Neeraj Stevenson High Blood Pressure Father Neeraj Stevenson Anemia Maternal Aunt Maritza Susanna Cancer Maternal Aunt Maritza Susanna Diabetes Maternal Aunt Maritza Susanna High Blood Pressure Maternal Aunt Maritza Susanna Osteoporosis Maternal Aunt Maritza Susanna Cancer Maternal Grandmother Selam Cooley Susanna Cancer Maternal Uncle Jamal Susanna Cirrhosis Maternal Uncle Jamal Susanna Liver Disease Maternal Uncle Jamal Susanna Psoriasis Maternal Uncle Jamal Susanna Anemia Mother Dang Susanna Robison's esophagus Mother Dang Santacruzispie High Blood Pressure Mother Dang Santacruzispie Cancer Paternal Aunt 1 Caitlin Ty Osteoporosis Paternal Aunt 1 Caitlin Ty Diabetes Paternal Aunt 2 Nellie Fariba Osteoporosis Paternal Aunt 2 Nellie Fariba Cancer Paternal Aunt 3 Clotilde Ortiz Diabetes Paternal Aunt 3 Clotilde Ortiz Kidney Disease Paternal Grandfather Lonny Santacruzispie Diabetes Paternal Grandmother Libia Elva High Blood Pressure Paternal Grandmother Libia Elva Osteoporosis Paternal Grandmother Libia Elva Cancer Paternal Uncle Jose Guadalupe Fariba Amblyopia Neg Hx Anesth Problems Neg Hx Blindness Neg Hx Cataracts Neg Hx Macular Degen Neg Hx Retinal Detachment Neg Hx Strabismus Neg Hx Relation Name Status Comments Daughter Alive Father Neeraj Stevenson Alive Maternal Aunt Maritza Susanna Maternal Grandmother Selam Cooley Susanna Maternal Uncle Jamal Santacruzispie hepatitis C Mother Dang Rodrigespie Alive Paternal Aunt 1 Caitlin Ty Paternal Aunt 2 Nellie Fariba Paternal Aunt 3 Clotilde Ortiz Paternal Grandfather Lonny Santacruzispie Paternal Grandmother Libia Elva Paternal Uncle Jose Guadalupe Fariba Social History Tobacco Use Types Packs/Day Years Used Date Smoking Tobacco: Some Days Cigarettes 0.5 27.2 Started: 12/25/1996; Last attempted to quit: 03/22/2024 Passive Smoke Exposure: Current Smokeless Tobacco: Never Quit: 06/04/2016 Tobacco Cessation:Ready to Q uit: Not Asked; Counseling Given: Not Answered Comments:Currently using the nicotine patch Alcohol Use Standard Drinks/Week Comments No 0 (1 standard drink = 0.6 oz pur e alcohol) [facility] Utilities Answer Date Recorded In the past 12 months has e electric, gas, oil, or water company threatened to shut off services in your home? No 06/10/2024 Overall Financial Resource Strain (CARDIA) Answe r Date Recorded How hard is it for you to pa y for the very basics like food, housing, medical care, and heating? Not very hard 06/10/2024 PHQ-2 Answer Date Recorded PHQ-2 Total Score 6 06/10/2024 [facility] - Occupational Stress [...] things needed for daily living? Yes 03/01/2022 [facility] IP Transportation Answer D ate Recorded [...] file Not on file Not on file Obstetrics History Last Filed Vital Signs Vital Sign Reading Time Taken Comments Blood Pressure 105/70 04/21/2025 10:55 AM EDT Pulse 81 04/21/2025 10:55 AM EDT Temperature 36.3 C (97.4 F) 04/21/2025 10:55 AM EDT Respiratory Rate 16 04/21/2025 10:55 AM EDT Oxygen Saturation 100% 04/21/2025 10:55 AM EDT Inhaled Oxygen Concentration - - Weight 53.5 kg (118 lb) 04/21/2025 10:55 AM EDT Height 167.6 cm (5' 6 ) 02/13/2025 2:06 PM EDT Body Mass Index 19.05 02/13/2025 2:06 PM EDT Plan of Treatment Upcoming Encounters Date Type Department Care Team (Late st Contact Info) Description 05/19/2025 12:30 PM EDT Office Visit [facility] [address] [place] [phone] Estrellita Franco MD [address] [place] [address] 05/27/2025 1:30 PM EDT Office Visit [facility] [address] [facility] [address] [place] [address] Kimberly Pereyra MD [address] [place] [address] 07/08/2025 10:30 AM EDT Office Visit [facility] [address] [place] [address] Cecil Villegas MD [address] [place] [address] 10/08/2025 11:00 AM EST Appointment [facility] [address] [place] [address] 10/08/2025 11:15 AM EST Appointment [facility] [address] [place] [address] Emily Cherry APRN [address] [facility] [address] [place] [address] Health Maintenance Due Date Last Done Comments Hepatitis B Vaccine (1 of 3 - 19+ 3-dose series) 2000 Pneumococcal Vaccine 0-49 (1 of 2 - PCV) 2000 Annual Wellness Exam 10/18/2017 10/18/2016 Pap Smear 10/01/2022 10/01/2019, 06/22/2017, 05/06/2016 (Previously completed) Breast Cancer Screening 01/14/2023 01/14/2021 COVID-19 Vaccine (1 - 2023-2 5 season) 2024 Cervical Cancer Screening 10/01/2024 HPV/Pap Cotest 10/01/2024 10/01/2019 Influenza Vaccine (#1) 2025 7 (Declined), 10/18/2016 (Declined) DTaP/TDaP/Td (2 - Td or Tdap) 06/23/2026 06/23/2016 Meningococcal B Vaccine Aged Out No l onger eligible based on patient's age to complete this topic Goals Goal Patient Goal Type Associated Problems Recent Progress Patient-Stated? Author Blood Pressure < 140/90 Blood Pressure 105/70(2024 10:55 AM EDT) No Hamida Moran APRN Maintain a healthy diet, exercise regularly and maintain an ideal body weight General No Johanna Guardado RMA Stay Tobacco Free Lifestyle No Johanna Guardado RMA Medical Devices Implanted Type Area Integrated Specialist Device Identifier Shelf Expiration Date Model / Serial / Lot Screw Bone 4mm 20mm Mini Headless Nonsterile - [id number] Implanted:Qty: 1 on 03/16/2021 by Antwan Puckett, DPM at [facility] Left: Toe TIM:ORTHOPE DICS [id number] / / Substitute Graft Bone Bioactive Foam Pack Vitoss Bb 2.5cc - [id number] Implanted:Qty: 1 on 07/20/2021 by Antwan Puckett, DPM at [facility] Right: Foot TIM:ORTHOPE DICS 12/20/2021 / / [id number] Screw Bone Locking T6 2.0 Mm X 11 Mm - [id number] Implanted:Qty: 1 on 10/23/2021 by Antwan Puckett, DPM at [facility] Right: Foot TIM:ORTHOPE DICS [id number] / / Sub Bngf Bbtrauma Bn [employer] Vitoss Fm Pk 1.2ml - [id number] Implanted:Qty: 1 on 10/23/2021 by Antwan Puckett, DPM at [facility] Right: Foot TIM:ORTHOPE DICS [id number] 09/21/2022 / / [id number] Screw Bone 2.0mm 12mm T6 Locking - [id number] Implanted:Qty: 2 on 07/20/2021 by Antwan Puckett, DPM at [facility] Explanted:Qty: 1 on 10/23/2021 at [facility] Right: Foot ITM:ORTHOPE DICS [id number] / / Plate Narrow 2mm Screw 6 Hole Lock L 34mm Nonsterile - [id number] Implanted:Qty: 1 on 10/23/2021 by Antwan Puckett, DPM at [facility] Right: Foot TIM:ORTHOPE DICS [id number] / / Screw Bone 2.0mm 10mm T6 Locking - [id number] Implanted:Qty: 3 on 10/23/2021 by Antwan Puckett, DPM at [facility] Right: Foot TIM:ORTHOPE DICS [id number] / / Screw Bone 2.0mm 12mm T6 Locking - [id number] Implanted:Qty: 1 on 10/23/2021 by Antwan Puckett, DPM at [facility] Right: Foot TIM:ORTHOPE DICS [id number] / / Kit Bone Cement W/Half Dose [employer] Mixer Delivery Strl-03/29/2024 Implanted:Qty: 1 on 03/29/2024 by Jacobo Garcia MD TIM [id number] / / [id number] Explanted Type Area Integrated Specialist Device Identifier Shelf Expiration Date Model / Serial / Lot Screw Bone 2.0mm 10mm T6 Locking - [id number] Implanted:Qty: 3 on 07/20/2021 by Antwan Puckett, DPM at [facility] Explanted:Qty: 3 on 10/23/2021 by Antwan Puckett P, DPM at [facility] Right: Foot TIM:ORTHOPEDI CS [id number] / / Plate Narrow 2mm Screw 8 Hole Lock L 48mm Nonsterile - [id number] Implanted:Qty: 1 on 07/20/2021 by Antwan Puckett, DPM at [facility] Explanted:Qty: 1 on 10/23/2021 by Antwan Puckett P, DPM at [facility] Right: Foot TIM:ORTHOPEDI CS [id number] / / Screw Bone 2.0mm 14mm T6 Locking - [id number] Implanted:Qty: 1 on 07/20/2021 by Antwan Puckett, DPM at [facility] Explanted:Qty: 1 on 10/23/2021 by Antwan Puckett P, DPM at [facility] Right: Foot TIM:ORTHOPEDI CS [id number] / / Procedures Procedure Name Priority Date/Time Associated Diagnosis [...] unspecified iron deficiency anemia type Other neutropenia XR FOOT RIGHT AP LATERAL AND OBLIQUE STANDING Routine 02/13/2025 2:37 PM EDT Right foot pain MM MAMMO DIGITAL CHAKA DIAGN BILAT Routine 01/14/2021 10:10 AM EDT Axillary lymphadenopathy AVID EDITOR CYTOLOGY REQUEST (PAP ONLY) Routine 10/01/2019 9:30 AM EST Encounter for other general counseling and advice on contraception from Last 3 Months or Most Recently Relevant to Health Maintenance Results * (ABNORMAL) SERUM PROTEIN ELECTROPHORESIS WITH REFLEX (04/21/2025 10:09 AM EDT) Albumin SPE 4.4 3.1 - 5.0 gm/dL 04/22/2025 12:21 PM EDT [facility] Alpha 1 Globulin 0.4(H) 0.1 - 0.3 gm/dL 04/22/2025 12:21 PM EDT [facility] Alpha 2 Globulin 0.8 0.5 - 1.0 gm/dL 04/22/2025 12:21 PM EDT [facility] Beta Globulin 0.6 0.5 - 1.4 gm/dL 04/22/2025 12:21 PM EDT [facility] Gamma Globulin NELLIE 0.7 0.6 - 1.6 gm/dL 04/22/2025 12:21 PM EDT [facility] Total Protein 6.6 6.4 - 8.3 gm/dL 04/22/2025 12:21 PM EDT [facility] SPE/IT Interp M-protein not apparent on serum protein electrophore sis. This test has been reviewed and approved by Giuseppe Scott MD. 04/22/2025 12:21 PM EDT [facility] Blood VENOUS BLOOD / Unknown Venipuncture / Unknown 04/21/2025 10:09 AM EDT 04/21/2025 10:19 AM EDT us Emily Cherry BUSINESS IMPROVEMENT MANAGER IMMUNOLOGY ORDERABLES Riri vides Result [facility] [address] [facility] , [place] [address] * RETICULOCYTE PANEL DIAGNOSTIC (04/21/2025 10:09 AM EDT) Retic Cnt Auto 2.2 0.9 - 2.5 % 04/21/2025 10:22 AM EDT [facility] Retic # 83.6 40.0 - 110.0 x10(3)/mcL 04/21/2025 10:22 AM EDT [facility] Imm. Retic Fraction % 8.3 3.1 - 17.6 % 04/21/2025 10:22 AM EDT [facility] Retic Hgb 32.0 28.0 - 38.0 pg 04/21/2025 10:22 AM EDT [facility] Blood VENOUS BLOOD / Unknown Venipuncture / Unknown 04/21/2025 10:09 AM EDT 04/21/2025 10:19 AM EDT Narrative [facility] - 04/21/2025 10:22 AM EDT Reticulocyte [...] the youngest reticulocytes having the highest content. (1)Joe Mejia., et al. 2017. Int J Hematol 106:116-125. (2)Rivas J., et al. 2017. Nutrients 9:450. (3)Bernie Moore, et al. 2014. Am J Clin Pathol 142:506-512. (4)Rehannoclaudia, L., et al. 2010. Blood 116:6481-9054. Emily Cherry BUSINESS IMPROVEMENT MANAGER HEMATOLOGY ORDERABLES Riri vides Result [facility] [address] [place] [address] * (ABNORMAL) IRON+TIBC (04/21/2025 10:09 AM EDT) Iron 42 30 - 160 mcg/dL 04/21/2025 7:58 PM EDT [facility] Transferrin 219 200 - 360 mg/dL 04/21/2025 7:58 PM EDT [facility] Transferrin Saturation 14(L) 20 - 50 % 04/21/2025 7:58 PM EDT [facility] TIBC 307 250 - 400 mcg/dL 04/21/2025 7:58 PM EDT [facility] Blood VENOUS BLOOD / Unknown Venipuncture / Unknown 04/21/2025 10:09 AM EDT 04/21/2025 10:19 AM EDT Emily Cherry APRN CHEMISTRY ORDERABLES Final Result Performing Organization Address City/[facility]/ZIP Co de Phone Number [facility], [facility] [address] [facility] , [place] [address] * (ABNORMAL) KAPPA/LAMBDA FREE LIGHT CHAINS (04/21/2025 10:09 AM EDT) Pathologist [facility] Agricola Free Light Chains 20.56(H) 3.30 - 19.40 mg/L 04/21/2025 8:16 PM EDT [facility], [facility] Lambda Free Light Chains 18.58 5.70 - 26.30 mg/L 04/21/2025 8:16 PM EDT [facility], [facility] Agricola/Lambda FLC Ratio 1.11 0.26 - 1.65 04/21/2025 8:16 PM EDT [facility], [facility] Blood VENOUS BLOOD / Unknown Venipuncture / Unknown 04/21/2025 10:09 AM EDT 04/21/2025 10:19 AM EDT Emily Cherry APRN CHEMISTRY ORDERABLES Final Result Performing Organization Address City/[facility] Co de Phone Number [facility] [place], [facility] [address] [facility] [address], [place] [address] * (ABNORMAL) CBC WITH DIFF (04/21/2025 10:09 AM EDT) Pathologist [facility] WBC 9.7 3.7 - 10.3 x10(3)/mcL 04/21/2025 10:22 AM EDT [facility] RBC 3.75(L) 3.90 - 5.20 x10(6)/mcL 04/21/2025 10:22 AM EDT [facility] Hgb 11.5 11.2 - 15.7 g/dL 04/21/2025 10:22 AM EDT [facility] Hct 36.3 34.0 - 45.0 % 04/21/2025 10:[facility] MCV 96.8 80.0 - 100.0 fL 04/21/2025 10:22 AM EDT [facility] MCH 30.7 26.0 - 34.0 pg 04/21/2025 10:22 AM EDT [facility] MCHC 31.7 30.7 - 35.5 g/dL 04/21/2025 10:22 [facility] RDW 13.2 <=14.9 % 04/21/2025 10:22 AM EDT [facility] Platelet 298 155 - 369 x10(3)/mcL 04/21/2025 10:22 AM EDT [facility] MPV 9.7 8.8 - 12.5 fL 04/21/2025 10:22 AM EDT [facility] Neut Percent 72.0 % 04/21/2025 10:22 AM T [facility] Comment:Neutrophils equals s egs plus bands Imm Gran% 0.4 % 04/21/2025 10:22 AM EDT [facility] Comment:Automated count of m etamyelocytes, myelocytes and promyelocytes. Lymph Percent 19.6 % 04/21/2025 10:22 AM EDT [facility] Lamar Percent 5.8 % 04/21/2025 10:22 AM [facility] Eos Percent 1.9 % 04/21/2025 10:22 AM [facility] Baso Percent 0.3 % 04/21/2025 10:22 AM EDT [facility] Neut # 7.0(H) 1.6 - 6.1 x10(3)/mcL 04/21/2025 10:22 AM EDT [facility] Comment:Neutrophils equals s egs plus bands IMMGRAN# 0.0 0.0 - 0.1 x10(3)/mcL 04/21/2025 10:22 AM [facility] Comment:Automated count of m etamyelocytes, myelocytes and promyelocytes. An absolute IG <0.1 is reported as 0.0. Lymph # 1.9 1.2 - 3.9 x10(3)/mcL 04/21/2025 10:22 AM EDT [facility] Lamar # 0.6 0.3 - 0.9 x10(3)/[facility] 04/21/2025 10:22 AM EDT [facility] Eos# 0.2 0.0 - 0.5 x10(3)/[facility] 04/21/2025 10:22 AM EDT [facility] Baso # 0.0 0.0 - 0.1 x10(3)/[facility] 04/21/2025 10:22 AM EDT [facility] Blood VENOUS BLOOD / Unknown Venipuncture / Unknown 04/21/2025 10:09 AM EDT 04/21/2025 10:19 AM EDT Emily Cherry APRN HEMATOLOGY ORDERABLES Riri l Result Performing Organization Address City/[facility] de Phone Number [facility] [address] [place] [address] * (ABNORMAL) FERRITIN (04/21/2025 10:09 AM EDT) Ferritin 173(H) 30 - 150 ng/mL 04/21/2025 7:58 PM EDT [facility] Comment:The lower threshold of 30 is not statistically defined, nor internally validated. The threshold has been updated to more closely reflect a physiologic basis. Nola Z, et al. Physiologically based serum ferritin thresholds for iron deficiency in children and non- women: a [place] National Health and Nutrition Examination Surveys (NHANES) serial cross-sectional study. Lancet Haematol 2021;8:e572-82. Blood VENOUS BLOOD / Unknown Venipuncture / Unknown 04/21/2025 10:09 AM EDT 04/21/2025 10:19 AM EDT Narrative [facility] - 04/21/2025 7:58 PM EDT Ingestion of harshil doses of biotin (>5 mg/day) taken within 8 hours of drawing blood sample can interfere with this immunoassay test. us Emily Cherry APRN CHEMISTRY ORDERABLES Final Result [facility] [address] [facility] , [place] [address] * (ABNORMAL) COMPREHENSIVE METABOLIC PANEL (04/21/2025 10:09 AM EDT) Sodium 136 136 - 145 mmol/L 04/21/2025 10:44 AM EDT [facility] Potassium 3.4(L) 3.5 - 5.0 mmol/L 04/21/2025 10:44 AM EDT [facility] Chloride 104 98 - 107 mmol/L 04/21/2025 10:44 AM EDT [facility] Total CO2 21(L) 22 - 29 mmol/L 04/21/2025 10:44 AM EDT [facility] Anion Gap 11 7 - 16 mmol/L 04/21/2025 10:44 AM EDT [facility] Calcium 9.0 8.6 - 10.4 mg/dL 04/21/2025 10:44 AM EDT [facility] Glucose Lvl 88 70 - 99 mg/dL 04/21/2025 10:44 AM EDT [facility] BUN 9 6 - 20 mg/dL 04/21/2025 10:44 AM [facility] Creatinine 0.91 0.51 - 1.30 mg/dL 04/21/2025 10:44 AM EDT [facility] Albumin 4.4 3.5 - 5.2 gm/dL 04/21/2025 10:44 AM EDT [facility] Total Protein 6.9 6.4 - 8.3 gm/dL 04/21/2025 10:44 AM EDT [facility] Bili Total 0.3 0.2 - 1.3 mg/dL 04/21/2025 10:44 AM EDT [facility] ALT 15 <=41 U/L 04/21/2025 10:44 AM EDT [facility] AST 16 <=40 U/L 04/21/2025 10:44 AM EDT [facility] Alk Phos 77 36 - 123 U/L 04/21/2025 10:44 AM EDT [facility] eGFR (CKD-EPIcr 2020) 79 >=60 mL/min/1.7 3 m2 04/21/2025 10:44 AM EDT [facility] Comment:Estimated GFR was ca lculated using the CKD-EPIcr (2020) equation refit without race. The equation is recommended by the National Kidney Foundation - [place] [employer]ph[employer] Task Force. Blood VENOUS BLOOD / Unknown Venipuncture / Unknown 04/21/2025 10:09 AM EDT 04/21/2025 10:19 AM EDT Emily Cherry BUSINESS IMPROVEMENT MANAGER CHEMISTRY ORDERABLES Final Result [facility] [address] [place] [address] * XR FOOT RIGHT AP LATERAL AND OBLIQUE STANDING (02/13/2025 2:37 PM EDT) Anatomical Region Laterality Modality Foot Radiographic Nicole ging Narrative 02/18/2025 12:43 PM EDT Reviewed three-view x-ray of the right foot noted previous hardware and previous healed metatarsal fractures. No new fractures or dislocations noted. No osseous lesions. Antwan Puckett DPM IMG DIAGNOSTIC IMAGING ORDE PANCHITO Final Result * MM MAMMO DIGITAL CHAKA DIAGN BILAT (01/14/2021 10:10 AM EDT) Anatomical Region Laterality Modality Breast Bilateral Mammography 01/14/2021 1:37 PM EDT Impressions 01/14/2021 1:37 PM EDT Incomplete-need additional imaging evaluation ([id number]) ~ RECOMMENDATION: Ultrasound of the right breast. This ultrasound examination will be performed and reported separately. ~ DISCLAIMER * Any patient with a palpable abnormality, unexplained by breast imaging, should be managed on clinical basis by the attending physician. * Breast imaging has a false negative rate of 15%. * The patient was notified by mail of the results of this examination. *The patient's information was entered into a reminder system with a target due date for the next mammogram, in accordance with the [place] [employer] and the Society of Breast Imaging recommendations. Narrative 01/14/2021 1:37 PM EDT Procedure:MM MAMMO DIGITAL CHAKA DIAGN BILAT ~ R59.0-Localized enlarged lymph flsds-[id number]. Follow-up right axillary pain/swelling. ~ MM MAMMO DIGITAL CHAKA DIAGN BILAT Bilateral CC and MLO view(s) were taken. There are scattered fibroglandular densities. Prior study comparison: No comparison mammographic studies. No suspicious calcifications. Unremarkable left breast exam. Solitary indeterminate subcentimeter lateral right breast nodule. No focal axillary abnormality. Follow-up targeted ultrasound imaging requested. ~ Procedure Note Alex Wyatt, DO - 01/14/2021 Procedure:MM MAMMO DIGITAL CHAKA DIAGN BILAT ~ R59.0-Localized enlarged lymph imwwl-[id number]. Follow-up right axillary pain/swelling. ~ MM MAMMO DIGITAL CHAKA DIAGN BILAT Bilateral CC and MLO view(s) were taken. There are scattered fibroglandular densities. Prior study comparison: No comparison mammographic studies. No suspicious calcifications. Unremarkable left breast exam. Solitary indeterminate subcentimeter lateral right breast nodule. No focalaxillary abnormality. Follow-up targeted ultrasound imaging requested. ~ IMPRESSION: Incomplete-need additional imaging evaluation ([id number]) ~ RECOMMENDATION: Ultrasound of the right breast. This ultrasound examination will be performed and reported separately. ~ DISCLAIMER * Any patient with a palpable abnormality, unexplained by breast imaging, should be managed on clinical basis by the attending physician. * Breast imaging has a false negative rate of 15%. * The patient was notified by mail of the results of this examination. *The patient's information was entered into a reminder system with atarget due date for the next mammogram, in accordance with the [place] [employer] and the Society of Breast Imaging recommendations. Diana Renteria MD IM MAMMOGRAPHY ORD ERABLES Final Result * AVID EDITOR CYTOLOGY REQUEST (PAP ONLY) (10/01/2019 9:30 AM EST) CASE REPORT Gynecologic Cytology Report Case: [id number] Authorizing Provider: [employer] [facility] Collected: 10/01/2019 0930 Ordering Location: [facility] Received: 10/04/2019 1613 First Screen: Estrellita Powers CT Rescreen: Catie Bales CT Specimen: LIQUID-BASED PAP - CERVICAL/ENDOCERV ICAL, Cervix, Endocervical 10/08/2019 4:04 PM EST [facility] PAP FINAL DIAGNOSIS Negative for intraepithelial lesion or malignancy 10/08/2019 4:04 PM EST [facility] at 1604 EST MICROSCOPIC DESCRIPTION Microscopic examination is performed and the findings corroborate the diagnosis. 10/08/2019 4:04 PM EST [facility] PAP SMEAR ADEQUACY Satisfactory for evaluation 10/08/2019 4:04 PM EST [facility] SPECIMEN LIMITATIONS Obscured by inflammation 10/08/2019 4:04 PM EST [facility] PAP ORGANISMS NOTED Trichomonas vaginalis present. 10/08/2019 4:04 PM EST [facility] ENDOCERVICAL T-ZONE Transformation zone absent. 10/08/2019 4:04 PM EST [facility] EMBEDDED IMAGES 0 4:04 PM EST [facility] PAP DISCLAIMER The Pap Smear is a screening test that aids in the detection of cervical cancer and cancer precursors. Both false positive and false negative results can occur. The test should be used at regular intervals, and positive results should be confirmed before definitive therapy. Processed using the ThinPrep Inorganic Chemistry Professor Automated cytology screening device ([employer]). 10/08/2019 4:04 PM EST [facility] Thin Prep ENDOCERVICAL STRUCTURE / Unknown 10/01/2019 9:30 AM EST 10/04/2019 4:13 PM EST [facility] Dunn CYTOLOGY ORDERABLES Final Result [facility] [address] [place] [address] from Last 3 Months or Most Recently Relevant to Health Maintenance Insurance [employer] [place] [place] [employer] [place] [place] [employer] [place] [employer] [place] [facility] [place] Advance Directives For more information, please contact: [phone] * Full Code (Latest Code Status on File) Date Activated Date Inactivated Comments 06/09/2024 5:13 PM 06/11/2024 8:04 PM * Full Code Date Activated Date Inactivated Comments 03/29/2024 10:02 PM 04/23/2024 8:44 PM * Full Code Date Activated Date Inactivated Comments 03/22/2024 8:11 PM 03/29/2024 8:48 PM * Full Code Date Activated Date Inactivated Comments 12/02/2023 2:12 AM 12/04/2023 7:28 PM * Full Code Date Activated Date Inactivated Comments 07/11/2018 12:48 PM 07/13/2018 9:50 PM Care Teams Animation Artist Relationship Specialty Start Date End Date Adele Caruso APRN [address] [facility] [address] [place] [id number] PCP - General Nurse Practitioner 12/01/23 [place] [address] [place] [address] [address] [place] [address] 05/04/16
--- OUTSIDE RECORDS SUMMARY | 2025-05-14 10:47 | XMS_ITS | Clinical Summary ---
Author Organization [facility] Address [address] [place] [address] Care Team Providers Care Welfare Officer Name Role Phone Unlisted, No [place] Requested Primary Care Provi haritha Unavailable Source Comments [facility] is fully rolled out with thefollowing exceptions:General Clinical Research [facility] Allergies No known active allergies Medications PULMICORT FLEXHALER 180 MCG/ACT inhaler Take 1 Puff by inhalation 3 times a day. 7 Active buPROPion (WELLBUTRIN-XL) 300 MG extended release tablet Take 300 mg by mouth 1 time a day. 7 Active citalopram (CeleXA) 10 MG tablet Take 20 mg by mouth 1 time a day. 7 Active ergocalciferol (VITAMIN D) 37448 UNITS capsule every 7 days. 7 Active ferrous sulfate (IRON) 325 (65 FE) MG tablet 7 Active gabapentin (NEURONTIN) 100 MG capsule Take 100 mg by mouth. 7 Active HYDROcodone-livan taminophen (NORCO) 5-325 MG tablet 4 times a day. 7 Active metoprolol (LOPRESSOR) 100 MG tablet 1 time a day. 7 Active omeprazole (PriLOSEC) 20 MG delayed release capsule 1 time a day. 7 Active triamcinolone acetonide (KENALOG) 0.1 % cream 7 Active Active Problems Problem Noted Date Diagnosed Date Chest pain 11/30/2016 Palpitations 11/30/2016 Thin build 11/30/2016 Social History Tobacco Use Types Packs/Day Years [...] on file Sexual Orientation Not on file Last Filed Vital Signs Vital Sign Reading Time Taken Comments Blood Pressure 90/40 11/18/2016 11:17 AM EST Pulse 72 11/18/2016 11:17 AM EST Temperature - - Respiratory Rate 12 11/18/2016 11:17 AM EST Oxygen Saturation - - Inhaled Oxygen Concentration - - Weight 53.3 kg (117 lb 8.1 oz) 11/18/2016 11:17 AM EST Height 168.9 cm (5' 6.5 ) 11/18/2016 11:17 AM ES T Body Mass Index 18.68 11/18/2016 11:17 AM EST Plan of Treatment Health Maintenance Due Date Last Done Comments MMR IMMUNIZATION (1 of 1 - Standard series) 1982 VARICELLA IMMUNIZATION (1 of 2 - 13+ 2-dose series) 1994 HEPATITIS B IMMUNIZATION (1 of 3 - 19+ 3-dose series) 2000 HPV IMMUNIZATION (1 - 3-dose SCDM series) 2008 DTAP/Tdap/Td IMMUNIZATION (2 - Td or Tdap) 07/21/2016 06/23/2016 COVID-19 Vaccine (2023-2 5 season) 2024 AMB SEASONAL FLU VACCINE (#1) 07/26/2025 HIB IMMUNIZATION Aged Out No longer e ligible based on patient's age to complete this topic IPV IMMUNIZATION Aged Out No longer e ligible based on patient's age to complete this topic MCV4 IMMUNIZATION Aged Out No longer eligible based on patient's age to complete this topic MENINGOCOCCAL B VACCINE Aged Out No l onger eligible based on patient's age to complete this topic PNEUMOCOCCAL IMMUNIZATION Aged Out No longer eligible based on patient's age to complete this topic Respiratory Syncytial Virus (RSV) <20mo Aged Out No longer eligible b ased on patient's age to complete this topic Insurance [employer]ETNA [facility] Care Teams Welfare Officer Relationship Specialty Start Date End Date Unlisted, No [place] Requested PCP - General 11/18/16
--- OUTSIDE RECORDS SUMMARY | 2025-05-14 10:47 | XMS_ITS | Clinical Summary ---
Author Organization [facility] Address [address] [place] [address] Care Team Providers Care Accountancy Professor Name Role Phone MoranHamida Primary Care Provider Source Comments This information has been disclosed to you from confidential records protectedfrom disclosure by state law. You shall make no further disclosure of thisinformation without the specific, written, and informed release of theindividual to whom it pertains, or as otherwise permitted by law. A generalauthorization for the release of medical or other information is not sufficientfor the purposes of therelease of HIV test results or diagnoses. [id number] Allergies Active Allergy Reactions Criticality Noted Date Comments Gabapentin Diarrhea 09/24/2018 Medications buPROPion SR (WELLBUTRIN SR) 150 MG tablet Take 150 mg by mouth 2 times a day. Active busPIRone (BUSPAR) 10 MG tablet Take 10 mg by mouth 2 times a day. Active nicotine (NICODERM CQ) 21 mg/[address] 1 patch onto the skin daily. 28 patch 09/01/20 18 Active pregabalin (LYRICA ORAL) Take 50 mg by mouth 3 times a day. Active povidone-iodine (BETADINE) 10 % external solution Apply topically if needed for Wound Care. 15 mL 10/11/19 19 Active ondansetron (ZOFRAN-ODT) 4 MG disintegrating tablet DISSOLVE 1 TABLET ON THE TONGUE BY MOUTH EVERY 6 HOURS NEEDED FOR NAUSEA 1 08/20/20 18 Active pantoprazole (PROTONIX) 40 MG tablet Take 40 mg by mouth 2 times a day before meals. 2 08/14/20 18 Active polyethylene glycol (GLYCOLAX) 17 gram/dose powder DISSOLVE 17 GRAMS OF POWDER MARKED ON CUP WITH LINE IN 8 OUNCES OF LIQUID AND DRINK ONCE DAILY FOR CONSTIPATION 6 08/06/20 Active sertraline (ZOLOFT) 50 MG tablet Take 50 mg by mouth daily. Active lactobacillus combination no.4 3 billion cell Cap Take 1 capsule by mouth 2 times a day. 12/01/19 Active loratadine (CLARITIN) 10 mg tablet Take 1 tablet by mouth daily. 12/01/19 Active albuterol (VENTOLIN HFA) 90 mcg/actuation inhaler Inhale 2 puffs into the lungs every 6 hours as needed for Wheezing. 12/01/19 Active melatonin 5 mg Tab Take 1 tablet (5 mg total) by mouth at bedtime. 12/13/19 Active cyclobenzaprine (FLEXERIL) 5 MG tablet Take 1 tablet (5 mg total) by mouth 3 times a day as needed. 90 tablet 12/13/19 Active amitriptyline (ELAVIL) 50 MG tablet Take 1 tablet (50 mg total) by mouth at bedtime. 30 tablet 03/20/20 Active ibuprofen (ADVIL,MOTRIN) 800 MG tablet Take 1 tablet (800 mg total) by mouth 3 times a day as needed. 30 tablet 03/20/20 19 Active lidocaine (LIDODERM) 5 % Place 1 patch onto the skin daily. Apply patch for 12 hours and then remove patch and leave off for 12 hours. 30 patch 03/20/20 Active acetaminophen (TYLENOL) 325 MG tabletIndications: Other acute osteomyelitis of left foot ([facility]) Take 2 tablets (650 mg total) by mouth every 6 hours as needed. 30 tablet 2 03/20/20 Active metoprolol succinate (TOPROL-XL) 25 MG 24 hr tablet Take 0.5 tablets (12.5 mg total) by mouth daily. 15 tablet 03/20/20 Active Active Problems Problem Noted Date Diagnosed Date Other fracture of left foot, subsequent encounter for fracture with routine healing 04/01/2019 Status post left foot surgery 04/01/2019 Bacteremia 03/19/2019 Other fracture of left foot, initial encounter for closed fracture 03/19/2019 Foot ulceration, left, with unspecified severity 09/27/2018 Overview (09/27/2018): Added automatically from request for surgery [id number] Osteomyelitis of left foot 09/27/2018 Assessment & Plan (12/06/2018 9:19 AM EDT): Recurrent erythema and edema highly suggestive of reactivation of insufficiently treated osteomyelitis in spite of her completing a six-week course at [facility]. Seen by podiatry and admitted with plans for Indium scan and empiric antibiotics. -IV vancomycin and cefepime -tagged WBC scan in am to assess deep infection, surgical plans dependent on scan results Assessment & Plan (09/27/2018 1:44 PM EST): Patient doing well. Inflammatory markers CRP and sed rate have trended down while on antimicrobial therapy and are now normal. Plan - Complete 6 weeks of IV vancomycin on 10/02/2017 Chronic viral hepatitis B wi thout delta agent and without coma 09/27/2018 Assessment & Plan (12/06/2018 8:53 AM EDT): Presently referred to GI as outpatient for treatment. Has not yet started treatment due to ongoing issues with osteomyelitis. Transaminases normal. Will need repeat viral load as outpatient to assess whether she has cleared the infection naturally -no acute issues Assessment & Plan (09/27/2018 1:45 PM EST): Diagnosed with acute hepatitis B on 06/2018 PLan - Repeat labs in December ( 6 months ) to determine if she has chronic hepatitis B Heroin use disorder, moderate, in early remissio n 08/29/2018 Assessment & Plan (12/06/2018 9:21 AM EDT): Abstinent for just over 3 months. Motivated to maintain abstinence. Understands the risks of relapse in the setting of opioid use for her acute pain and will be minimizing PRN use as possible -offer addiction medicine consultation given need for opioid pain control -multimodal pain therapy with Mobic, amitriptyline, pregabalin Assessment & Plan (08/31/2018 9:21 AM EST): Hospital Course Pt has a history of heroin use but did not endorse current heroin use after rehab. Naltrexone injections monthly outpatient per Retail rx ([facility] in ) Assessment and Plan for 08/31/2018 - Naltrexone injections monthly outpatient per Retail Rx (filled at [facility] in [facility]) - Does not endorse current heroin use after rehab, but will monitor for signs of withdrawal Assessment & Plan (08/30/2018 2:43 PM EST): Hospital Course Pt has a history of heroin use but did not endorse current heroin use after rehab. Naltrexone injections monthly outpatient per Retail rx ([facility] at [facility] in ) Assessment and Plan for 08/30/2018 - Naltrexone injections monthly outpatient per Retail Rx (filled at [facility] in [facility]) - Does not endorse current heroin use after rehab, but will monitor for signs of withdrawal Assessment & Plan (08/29/2018 2:59 PM EST): Hospital Course Pt has a history of heroin use but did not endorse current heroin use after rehab. Naltrexone injections monthly outpatient per Retail rx ([facility] in ) Assessment and Plan for 08/29/2018 - Naltrexone injections monthly outpatient per Retail Rx (filled at [facility] in [facility]) - Does not endorse current heroin use after rehab, but will monitor for signs of withdrawal Tobacco use 08/29/2018 Overview (12/06/2018): Overview: stop Assessment & Plan (08/31/2018 2:20 PM EST): Hospital Course No acute changes during hospitalization. Pt has a history of tobacco use. In hospital, pt was maintained on Bupropion 150 BID and nicotine 21 patch for cravings. Assessment and Plan for 08/31/2018 - Continue Bupropion 150 BID - Continue Nicotine 21 patch while in-house for cravings. Assessment & Plan (08/30/2018 2:43 PM EST): Hospital Course No acute changes during hospitalization. Pt has a history of tobacco use. Assessment and Plan for 08/30/2018 - Continue Bupropion 150 BID - Continue Nicotine 21 patch while in-house for cravings. Assessment & Plan (08/29/2018 3:01 PM EST): Hospital Course No acute changes during hospitalization. Pt has a history of tobacco use. Assessment and Plan for 08/29/2018 - Continue Bupropion 150 BID - Continue Nicotine 21 patch while in-house for cravings. Osteomyelitis of right foot 08/20/2018 Assessment & Plan (09/04/2018 2:03 PM EST): Cont vancomycin with trough goal of 15-20 to complete 6 week course ending oct 02. Need weekly safety labs until end of abx: please obtain antibiotic safety labs and fax to [phone] Attn: YUMIKO Cui + Dr. Perez Mondays: CBC w/ Differential, BMP, ESR, CRP, & Vancomycin trough : BMP + Vancomycin trough Assessment & Plan (08/31/2018 2:20 PM EST): Hospital Course Pt had Bld cx at OSH with MRSA. Podiatry did I&D 08/19/2018. She tolerated the procedures well with no complications. Patient was given all options for treatment, including partial foot amputation, IV antibiotics, or below knee amputation. Patient was adamant that she would like to at least attempt a 6 week course of IV antibiotics in an attempt to salvage her foot at this time. She understood that this may not be curative and that she may yet undergo an amputation in the future should her selected modality of therapy be unsuccessful. She understood that she will require a wound VAC and close monitoring of the infectious site for worsening infection while undergoing IV antibiotic therapy. Postoperatilvely transferred to the floor in stable condition. Pain controlled post-op with 5 mg oxycodone. Diet was advanced and tolerated this well. Medicine consulted for medical co-management. Infectious disease consulted for antibiotic therapy recommendations and monitoring. Safety labs ordered to be completed weekly at the time of discharge and sent to ID office. Micro cultures of cuneiforms, 2nd metatarsal, and 3rd metatarsal all demonstrated MRSA upon micro analysis. ID recommended Vancomycin for 6 weeks, with an expected end date of October 02, 2018. Upon their recommendations a TTE was ordered to evaluate for vegetations, given history of bacteremia at OSH. TTE results negative. PT/OT consulted for evaluation and discharge recommendations. Social work consulted for discharge planning, including placement, given history of IVDU (90+ days clean) and the need for PICC line and 6 weeks of antibiotics. PICC team consulted for PICC line placement given patient elected course of 6 weeks of IV antibiotics. At time of discharge, the patient was tolerating oral food and hydration, voiding spontaneously, had return of bowel function, was ambulating without difficulty, and pain was controlled on oral medications. The patient was determined to be suitable for discharge and the patient felt comfortable with that decision. Patient was discharged in fair condition. She will likely need antibiotic spacer exchanged in 6 weeks, patient is in good understanding of this. Per ID, follow up appointment with YUMIKO Cui at [facility] on Sep 04 @ 2:00pm. Please obtain antibiotic safety labs and fax to [phone] Attn: YUMIKO Cui + Dr. Perez Mondays: CBC w/ Differential, BMP, ESR, CRP, & Vancomycin trough : BMP + Vancomycin trough. In fax please state the current dose and schedule of Vancomycin. Assessment and Plan for 08/31/2018 - Wound vac, change every 3 days, likely will need for a month - ID consulted, recs appreciated, continue vancomycin, anticipate 6 weeks of abx with End date of 10/02/18. - PICC Care with weekly and PRN sterile dressing changes. If any problems with PICC (ie: unable to draw blood or concern for contamination/ DVT please notify infectious disease center @ [phone]) Assessment & Plan (08/30/2018 2:43 PM EST): Hospital Course Pt had Bld cx at OSH with MRSA. Podiatry did I&D 08/19/2018. Per ID, follow up appointment with YUMIKO Cui at [facility] on Sep 04 @ 120 please obtain antibiotic safety labs and fax to [phone] Attn: YUMIKO Cui + Dr. Perze Mondays: CBC w/ Differential, BMP, ESR, CRP, & Vancomycin trough : BMP + Vancomycin trough - In fax please state the current dose and schedule of Vancomycin Assessment and Plan for 08/30/2018 - Wound vac, change every 3 days, likely will need for a month - ID consulted, recs appreciated, continue vancomycin, anticipate 6 weeks of abx with End date of 10/02/18. - PICC Care with weekly and PRN sterile dressing changes. If any problems with PICC (ie: unable to draw blood or concern for contamination/ DVT please notify infectious disease center @ [phone]) Assessment & Plan (08/29/2018 5:13 PM EST): Hospital Course Pt had Bld cx at OSH with MRSA. Podiatry did I&D 08/19/2018. Per ID, follow up appointment with YUMIKO Cui at [facility] on Sep 04 @ 120 please obtain antibiotic safety labs and fax to [phone] Attn: YUMIKO Cui + Dr. Perez Mondays: CBC w/ Differential, BMP, ESR, CRP, & Vancomycin trough : BMP + Vancomycin trough - In fax please state the current dose and schedule of Vancomycin Assessment and Plan for 08/29/2018 - Wound vac, change every 3 days, likely will need for a month - ID consulted, recs appreciated, continue vancomycin, anticipate 6 weeks of abx with End date of 10/02/18. - PICC Care with weekly and PRN sterile dressing changes. If any problems with PICC (ie: unable to draw blood or concern for contamination/ DVT please notify infectious disease center @ [phone]) Gastroesophageal reflux disease without esophagi tis 10/20/2016 Depression Assessment & Plan (12/06/2018 9:39 AM EDT): Mood reasonably stable at present though discouraged by setback regarding infection -Continue Buspar, bupropion, Elavil Assessment & Plan (08/31/2018 9:22 AM EST): Hospital Course No changes during hospitalization. Pt's home medication is vortioxetine, which is not on the formulary. Pt can continue if brought from home. Assessment and Plan for 08/31/2018 - Vortioxetine not on formulary, but would continue if patient brings from home. Assessment & Plan (08/30/2018 2:43 PM EST): Hospital Course No changes during hospitalization. Pt's home medication is vortioxetine, which is not on the formulary. Pt can continue if brought from home. Assessment and Plan for 08/30/2018 - Vortioxetine not on formulary, but would continue if patient brings from home. Assessment & Plan (08/29/2018 2:53 PM EST): Hospital Course No changes during hospitalization. Pt's home medication is vortioxetine, which is not on the formulary. Pt can continue if brought from home. Assessment and Plan for 08/29/2018 - Vortioxetine not on formulary, but would continue if patient brings from home. HTN (hypertension) Assessment & Plan (08/31/2018 2:10 PM EST): Hospital Course No acute changes during hospitalization. BP was well controlled on metoprolol succinate 25 mg. Assessment and Plan for 08/31/2018 BP well controlled on current meds - Continue metoprolol succinate 25 mg. Assessment & Plan (08/30/2018 7:56 AM EST): Hospital Course No acute changes during hospitalization. Assessment and Plan for 08/30/2018 BP well controlled on current meds - Continue metoprolol succinate 25 mg. Assessment & Plan (08/29/2018 2:52 PM EST): Hospital Course No acute changes during hospitalization. Assessment and Plan for 08/29/2018 - Continue metoprolol succinate 25 mg. Abscess of right foot Family History Medical History Relation Comments Coronary artery disease Father Anesthesia problems Paternal Aunt PONV Diabetes Paternal Grandmother Stroke Paternal Grandmother Relation Status Comments Father Paternal Aunt Paternal Grandmother Social History Tobacco Use Types Packs/Day Years Used Date Smoking Tobacco: Former Cigarettes 2 20 1 09/1997 - 07/2018 Smokeless Tobacco: Never Tobacco Cessation:Ready to Q uit: Yes; Counseling Given: Yes Alcohol Use Standard Drinks/Week Comments No 0 (1 standard drink = 0.6 oz pur e alcohol) PHQ-2 Answer Date Recorded PHQ-2 Score 0 07/09/2019 Comments No Sex and Gender Information Value Date Recorded Sex Assigned at Not on file Legal Sex Female 9:24 PM EST Gender Identity Not on file Sexual Orientation Not on file Last Filed Vital Signs Vital Sign Reading Time Taken Comments Blood Pressure 104/66 03/27/2019 3:32 PM EDT Pulse 94 03/27/2019 3:32 PM EDT Temperature 36.4 C (97.6 F) 03/20/2019 12:24 PM EDT Respiratory Rate 16 03/27/2019 3:32 PM EDT Oxygen Saturation 97% 03/27/2019 3:32 PM EDT Inhaled Oxygen Concentration 97% 03/27/2019 3 :32 PM EDT Weight 58.1 kg (128 lb) 03/27/2019 3:32 PM EDT Height 167.6 cm (5' 6 ) 03/27/2019 3:32 PM EDT Body Mass Index 20.66 03/27/2019 3:32 PM EDT Plan of Treatment Not on file Medical Devices Implanted Type Area Dry Dip Worker Device Identifier Shelf Expiration Date Model / Serial / Lot Cmnt Bn Smpx P Rp Fd Strl - [id number] Implanted:Qty: 1 on 08/26/2018 by Phuc Elkins DPM at [facility] Main Bone Left: Foot TIM [id number] 06/24/2020 [id number] / / [id number] Insurance [employer] [facility] Advance Directives For more information, please contact: [phone] * Full Code (Latest Code Status on File) Date Activated Date Inactivated Comments 03/11/2019 1:49 AM 03/20/2019 6:55 PM * Full Code Date Activated Date Inactivated Comments 12/06/2018 1:41 AM 12/12/2018 7:26 PM * Full Code Date Activated Date Inactivated Comments 08/20/2018 2:39 PM 08/31/2018 9:49 PM Care Teams Accountancy Professor Relationship Specialty Start Date End Date Hamida Moran ARNP [address] [place] [address] PCP - General 05/05/18
--- OUTSIDE RECORDS SUMMARY | 2025-05-14 10:47 | XMS_ITS | Encounter Summary ---
Author Organization [place] [address] Care Team Providers Care Chief Program Officer Name Role Phone Gustavo Gonzalez MD Unavailable [phone] Adele Caruso APRN Primary Care Provider [phone] Reason for Visit * Reason Onset Date Comments Medication Refill 03/26/2025 Encounter Details Date Type Department Care Team (Late st Contact Info) Description 03/26/2025 Refill [facility] Pod[facility]ry [address] [place] [address] Antwan Puckett, DPLakeshia [address] [facility] [address] [place] [id number] Medication Refill Social History Tobacco Use Types Packs/Day Years Used Date Smoking Tobacco: Some Days Cigarettes 0.5 27.2 Started: 12/25/1996; Last attempted to quit: 03/22/2024 Passive Smoke Exposure: Current Smokeless Tobacco: Never Quit: 06/04/2016 Comments:Currently using the nicotine patch Alcohol Use Standard Drinks/Week Comments No 0 (1 standard drink = 0.6 oz pur e alcohol) [facility] Utilities Answer Date Recorded In the [...] Date Recorded PHQ-2 Total Score 6 06/10/2024 [facility] - Occupational Stress [...] things needed for daily living? Yes 03/01/2022 [facility] IP Transportation Answer D ate Recorded [...] of Assessment Author No 06/11/2024 11:49 AM JINAT Pierre Dunn RN * Is the person blind or [...] Pierre Jensen RN documented in this encounter Ordered Prescriptions Prescription Sig Dispense Quantity Refills Last Filled Start Date End Date diclofenac epolamine (FLECTOR) 1.3 % TD Patch [address] 1 Patch onto the skin 2 times daily as needed. 30 Patch 04/01/2025 diclofenac epolamine (FLECTOR) 1.3 % TD Patch [address] 1 Patch onto the skin 2 times daily as needed. 30 Patch 03/26/2025 04/01/2025 documented in this encounter Miscellaneous Notes * Addendum Note - Heidi Ma MA - 04/01/2025 12:09 PM EDTAddended by: HEIDI MA on: 04/01/2025 12:09 PM Modules accepted: Orders documented in this encounter Plan of Treatment Upcoming Encounters Date Type Department Care Team (Late st Contact Info) Description 05/19/2025 12:30 PM EDT Office Visit [facility] Diabetes Melissa [address] [place] [address] Estrellita Franco MD [address] [place], [place] [phone] 05/27/2025 1:30 PM EDT Office Visit [facility] GASTRO [facility] [address] [facility] [address] [place] [address] Kimberly Pereyra MD [address] [place], [place] [phone] 07/08/2025 10:30 AM EDT Office Visit [facility] Neurology [facility] [address] [place] [phone] Cecil Villegas MD [address] [address] 10/08/2025 11:00 AM EST Appointment [facility] [address] [place] [phone] 10/08/2025 11:15 AM EST Appointment [facility] [address] [facility] [address] [place] [address] Emily Cherry APRN [address] [place] [address] [address] [place] [address] documented as of this encounter Goals Goal Patient Goal Type Associated Problems Recent Progress Patient-Stated? Author Blood Pressure < 140/90 Blood Pressure 105/70(2024 10:55 AM EDT) No Hamida Moran APRN Maintain a healthy diet, exercise regularly and maintain an ideal body weight General No Johanna Guardado RMA Stay Tobacco Free Lifestyle No Debby, Johanna L, RMA documented as of this encounter Visit Diagnoses Not on filedocumented in this encounter Discontinued Medications Medication Sig Discontinue Reason Start Date End Da te diclofenac epolamine (FLECTOR) 1.3 % TD Patch [address] 1 Patch onto the skin 2 times daily as needed. Reorder 02/25/2025 03/26/2025 diclofenac epolamine (FLECTOR) 1.3 % TD Patch [address] 1 Patch onto the skin 2 times daily as needed. 03/26/2025 04/01/2025 documented as of this encounter Additional Health Concerns Assessment Noted Time PHQ-9 Depression Total Score: 16 024 12:22 PM EDT PHQ-2 Depression Total Score: 6 06/10/20 24 12:22 PM EDT documented as of this encounter Care Teams Chief Program Officer Relationship Specialty Start Date End Date Adele Caruso APRN [address] [facility] [address] [place] [address] PCP - General Nurse Practitioner 12/01/23 Gustavo Gonzalez MD [address] [facility] [address] [place] [address] 05/04/16 documented as of this encounter
--- OUTSIDE RECORDS SUMMARY | 2025-05-14 10:47 | XMS_ITS | Encounter Summary ---
Author Organization [facility] Address [address] [place] [address] Care Team Providers Care Medical Sales Specialist Name Role Phone Hamida Moran Primary Care Provider Source Comments This information has been disclosed to you from confidential records protectfrom disclosure by state law. You shall make no further disclosure of thisinformation without the specific, written, and informed release of theindividual to whom it pertains, or as otherwise permitted by law. A generalauthorization for the release of medical or other information is not sufficientfor the purposes of the release of HIV test results or diagnoses. [id number] Health Encounter Details Date Type Department Care Team (Late st Contact Info) Description 09/07/2018 Orders Only [facility] Outreach Lab Test Referral Center [address] [place] [phone] Andriy Parr Being sick (Primary Dx) Social History Tobacco Use Types Packs/Day Years Used Date Smoking Tobacco: Every Day Cigarettes 2 20 Smokeless Tobacco: Never Alcohol Use Standard Drinks/Week Comments No 0 (1 standard drink = 0.6 oz pur e alcohol) Comments No Sex and Gender Information Value Date Recorded Sex Assigned at Not on file Legal Sex Female 9:24 PM EST Gender Identity Not on file Sexual Orientation Not on file documented as of this encounter Plan of Treatment Not on file documented as of this encounter Results * Vancomycin, trough (09/07/2018 8:00 PM EST) Vancomycin Tr 16.3 10.0 - 20.0 ug/mL 09/08/2018 12:01 AM EST [facility] Serum specimen (specimen) 09/07/2018 8:00 PM EST 09/07/2018 11:41 PM EST us Provider Not In System LAB BLOOD ORDERABLES Riri vides Result Performing Organization Address City/State/[facility] Co de Phone Number [facility] [address] documented in this encounter Visit Diagnoses Diagnosis Being sick- Primary Other unknown and unspecified cause of morbidity or mortality documented in this encounter Additional Health Concerns Infection Onset Date Last Indicated Resolved Time MRSA from wound or tissue cu lture Comment:Left foot tissue 08/21/18 08/24/2018 08/24/20182018 7:19 AM EDT documented as of this encounter Care Teams Medical Sales Specialist Relationship Specialty Start Date End Date Hamida Moran, IMAGERY INTELLIGENCE [address] [place], [place] [address] PCP - General 05/05/18 documented as of this encounter
--- OUTSIDE RECORDS SUMMARY | 2025-05-14 10:47 | XMS_ITS | Encounter Summary ---
Author Organization [place] [address] Care Team Providers Care Public Services Assistant Name Role Phone Gustavo Gonzalez MD Unavailable [phone] Adele Caruso APRN Primary Care Provider [phone] Reason for Visit * Reason Onset Date Comments Medication Refill 05/12/2025 Encounter Details Date Type Department Care Team (Late st Contact Info) Description 05/12/2025 Refill [facility] Podiatry [address] [place] [address] Antwan Puckett, DPLakeshia [address] [facility] [address] [place] [phone] Medication Refill Social History Tobacco Use Types Packs/Day Years Used Date Smoking Tobacco: Some Days Cigarettes 0.5 27.2 Started: 12/25/1996; Last attempted to quit: 03/22/2024 Passive Smoke Exposure: Current Smokeless Tobacco: Never Quit: 06/04/2016 Comments:Currently using the nicotine patch Alcohol Use Standard Drinks/Week Comments No 0 (1 standard drink = 0.6 oz pur e alcohol) [facility] Utilities Answer Date Recorded In [...] Date Recorded PHQ-2 Total Score 6 06/10/2024 [facility] - [...] things needed for daily living? Yes 03/01/2022 [facility] IP Transportation Answer D ate Recorded [...] Refills Last Filled Start Date End Date lidocaine (LIDODERM) 5 % Top Adhesive Patch, MedicatedIndication s:Myofascial pain Place 1 Patch onto the skin daily. Apply for 12 hours, remove for 12 hours, then apply new patch 30 Patch 2 05/12/2025 documented in this encounter Plan of Treatment Upcoming Encounters Date Type Department Care Team (Late st Contact Info) Description 05/19/2025 12:30 PM EDT Office Visit SEP Diabetes [address] [address] Estrellita Franco MD [address] [place] [address] 05/27/2025 1:30 PM EDT Office Visit [facility]P GASTRO [facility] [address], 3RD [place] [address] Kimberly Pereyra MD [address] [place] [address] 07/08/2025 10:30 AM EDT Office Visit SEP Neurology [facility] [address] [place] [address] Cecil Villegas MD [address] [place] [address] 10/08/2025 11:00 AM EST Appointment [facility] [address] [place] [address] 10/08/2025 11:15 AM EST Appointment [facility] [address] [place] [address] Emily Cherry APRN [address] [place] [address] documented as of this encounter Goals Goal Patient Goal Type Associated Problems Recent Progress Patient-Stated? Author Blood Pressure < 140/90 Blood Pressure 105/70(2024 10:55 AM EDT) No Hamida Moran APRN Maintain a healthy diet, exercise regularly and maintain an ideal body weight General No Johanna Guardado RMA Stay Tobacco Free Lifestyle No Johanna Guardado RMA documented as of this encounter Visit Diagnoses Diagnosis Myofascial pain Mylagia and myositis, unspecified documented in this encounter Discontinued Medications Medication Sig Discontinue Reason Start Date End Da te lidocaine (LIDODERM) 5 % Top Adhesive Patch, MedicatedIndications:Jasiel fascial pain Place 1 Patch onto the skin daily. Apply for 12 hours, remove for 12 hours, then apply new patch Reorder 02/13/2025 05/12/2025 documented as of this encounter Additional Health Concerns Assessment Noted Time PHQ-9 Depression Total Score: 16 09/16/2 024 12:22 PM EDT PHQ-2 Depression Total Score: 6 06/10/20 24 12:22 PM EDT documented as of this encounter Care Teams Public Services Assistant Relationship Specialty Start Date End Date Adele Caruso APRN [address] [facility] [address] [place] [phone] PCP - General Nurse Practitioner 12/01/23 Gustavo Gonzalez MD [address] [facility] [address] [place] [address] 05/04/16 documented as of this encounter
--- OUTSIDE RECORDS SUMMARY | 2025-05-14 10:47 | XMS_ITS | Encounter Summary ---
Author Organization [place] [address] Care Team Providers Care Photonic Laboratory Technician Name Role Phone Gustavo Gonzalez MD Unavailable [phone] Adele Caruso APRN Primary Care Provider Reason for Visit * Reason Comments Medication Refill Encounter Details Date Type Department Care Team (Late st Contact Info) Description 04/15/2025 Refill SEP Diabetes [place] [address] [place] [address] Estrellita Franco MD [address] [place] [address] Medication Refill Social History Tobacco Use Types Packs/Day Years Used Date Smoking Tobacco: Some Days Cigarettes 0.5 27.2 Started: 12/25/1996; Last attempted to quit: 03/22/2024 Passive Smoke Exposure: Current Smokeless Tobacco: Never Quit: 06/04/2016 Comments:Currently using the nicotine patch Alcohol Use Standard Drinks/Week Comments No 0 (1 standard drink = 0.6 oz pur e alcohol) [facility] Utilities Answer Date Recorded In the past [...] Date Recorded PHQ-2 Total Score 6 06/10/2024 [facility] - Occupational Stress Questionnaire Answer Date Recorded [...] things needed for daily living? Yes 03/01/2022 [facility] IP Transportation Answer D ate Recorded [...] Refills Last Filled Start Date End Date ergocalciferol (DRISDOL) 1,250 mcg (50,000 unit) Oral CapsuleIndications :Vitamin D deficiency Take 1 Capsule by mouth once a week. 12 Capsule 1 04/15/2025 documented in this encounter Plan of Treatment Upcoming Encounters Date Type Department Care Team (Late st Contact Info) Description 05/19/2025 12:30 PM EDT Office Visit SE[facility] Diabetes [place] [address] [place] [phone] Estrellita Franco MD [address] [place] [address] 05/27/2025 1:30 PM EDT Office Visit [facility]STRO [facility] [address], 3RD [place] [address] Kimberly Pereyra MD [address] [place] [address] 07/08/2025 10:30 AM EDT Office Visit SEP Neurology [facility] [address] [place] [phone] Cecil Villegas MD [address] [facility] [address] [place] [address] 10/08/2025 11:00 AM EST Appointment [facility] [address] [place] [address] 10/08/2025 11:15 AM EST Appointment [facility] [address] [facility] [address] [place] [address] Emily Cherry APRN [address] [place] [address] [address] [place], [place] [phone] documented as of this encounter Goals Goal Patient Goal Type Associated Problems Recent Progress Patient-Stated? Author Blood Pressure < 140/90 Blood Pressure 105/70(2024 10:55 AM EDT) No Hamida Moran APRN Maintain a healthy diet, exercise regularly and maintain an ideal body weight General No Johanna Guardado RMA Stay Tobacco Free Lifestyle No Johanna Guardado RMA documented as of this encounter Visit Diagnoses Diagnosis Vitamin D deficiency Unspecified vitamin D deficiency documented in this encounter Discontinued Medications Medication Sig Discontinue Reason Start Date End Da te ergocalciferol (VITAMIN D) 1,250 mcg (50,000 unit) Oral CapsuleIndications:Vitam in D deficiency Take 1 Capsule by mouth once a week. 10/22/2024 04/15/2025 documented as of this encounter Additional Health Concerns Assessment Noted Time PHQ-9 Depression Total Score: 16 024 12:22 PM EDT PHQ-2 Depression Total Score: 6 06/10/20 24 12:22 PM EDT documented as of this encounter Care Teams Photonic Laboratory Technician Relationship Specialty Start Date End Date Adele Caruso APRN [address] [facility] [address] [place] [address] PCP - General Nurse Practitioner 12/01/23 Gustavo Gonzalez MD [address] [place] [address] 05/04/16 documented as of this encounter
--- OUTSIDE RECORDS SUMMARY | 2025-05-14 10:47 | XMS_ITS | Encounter Summary ---
Author Organization [facility] [place] [address] Care Team Providers Care Board Handler Name Role Phone Gustavo Gonzalez MD Unavailable [phone] Adele Caruso APRN Primary Care Provider [phone] Encounter Details Date Type Department Care Team (Latest Contact Info) Description 04/16/2025 Travel Social History Tobacco Use Types Packs/Day Years Used Date Smoking Tobacco: Some Days Cigarettes 0.5 27.2 Started: 12/25/1996; Last attempted to quit: 03/22/2024 Passive Smoke Exposure: Current Smokeless Tobacco: Never Quit: 06/04/2016 Comments:Currently using the nicotine patch Alcohol Use Standard Drinks/Week Comments No 0 (1 standard drink = 0.6 oz pur e alcohol) [facility] Utilities Answer Date Recorded In the past 12 months has [employer] electric, gas, oil, or water company threatened to shut off services in your home? No 06/10/2024 Overall Financial Resource Strain (CARDIA) Answe r Date Recorded How hard is it for you to pa y for the very basics like food, housing, medical care, and heating? Not very hard 06/10/2024 PHQ-2 Answer Date Recorded PHQ-2 Total Score 6 06/10/2024 [facility] - Occupational Stress Questionnaire Answer Date [...] things needed for daily living? Yes 03/01/2022 [facility] IP Transportation Answer D ate [...] Assessment Author No 06/11/2024 11:49 AM EDT Pierre Dunn RN * Is the person blind or does he/she have serious difficulty seeing even when wearing glasses? Answer Date of Assessment Author No 06/11/2024 11:49 AM EDT Pierre Dunn RN * Does this person have serious difficulty walking or climbing stairs? Answer Date of Assessment Author No 06/11/2024 11:49 AM JINAT Pierre Dunn RN * Does this person have difficulty dressing or bathing? Answer Date of Assessment Author No 06/11/2024 11:49 AM JINAT Pierre Dunn RN * Because of a physical, mental or emotional condition, does this person have difficulty doing errands alone such as visiting a doctor's office or shopping? Answer Date of Assessment Author No 06/11/2024 11:49 AM JINAT Pierre Dunn RN documented as of this encounter Mental Status * Because of a physical, mental or emotional condition, does this person have serious difficulty concentrating, remembering or making decisions? Answer Entry Date Author No 06/11/2024 11:49 AM Pierre Jensen RN documented in this encounter Plan of Treatment Upcoming Encounters Date Type Department Care Team (Late st Contact Info) Description 05/19/2025 12:30 PM EDT Office Visit SEP Diabetes [place] [address] [place] [phone] Estrellita Franco MD [address] [place] [address] 05/27/2025 1:30 PM EDT Office Visit SEP GASTRO [facility] [address] [facility] 1[address] ENTRANCE, 3RD [place] [address] Kimberly Pereyra MD [address] [place] [address] 07/08/2025 10:30 AM EDT Office Visit SEP Neurology [facility] [address] [place] [address] Cecil Villegas MD [address] [facility] [address] [place] [address] 10/08/2025 11:00 AM EST Appointment [facility] [address] [place] [address] 10/08/2025 11:15 AM EST Appointment [facility] [address] [place] [address] Emily Cherry AUDIO/VIDEO ENGINEER [address] [facility] [address] [place] [address] documented as of this encounter [...] Diagnoses Not on filedocumented in this encounter Additional Health Concerns Assessment Noted Time PHQ-9 Depression Total Score: 16 024 12:22 PM EDT PHQ-2 Depression Total Score: 6 06/10/20 24 12:22 PM EDT documented as of this encounter Care Teams Board Handler Relationship Specialty Start Date End Date Adele Caruso APRN [address] [facility] [address] [place] [address] PCP - General Nurse Practitioner 12/01/23 Gustavo Gonzalez MD [address] [place] [address] [address] [place] [address] 05/04/16 documented as of this encounter
--- OUTSIDE RECORDS SUMMARY | 2025-05-14 10:47 | XMS_ITS | Encounter Summary ---
Author Organization [place] [address] Care Team Providers Care Applications Programmer Name Role Phone Gustavo Gonzalez MD Unavailable [phone] Hamida Moran APRN Primary Care Provider [phone] Diana Drew MD Primary Care Provi haritha Unavailable Ricki Palacios BA, COS Unavailable UnavailAdele Diego APRN Primary Care Provider Blanche Garcia Unavailable Unava ilCelina Sheffield Unavailable Unavailable Encounter Details Date Type Department Care Team (Late st Contact Info) Description 10/04/2019 Lab Requisition [facility] [place] [id number] [employer] [place] [id number] [place] [phone] Encounter for other general counseling and advice on contraception Social History Tobacco Use Types Packs/Day Years Used Date Smoking Tobacco: Every Day Cigarettes 1 17 Smokeless Tobacco: Former Quit: 06/04/2016 Alcohol Use Standard Drinks/Week Comments Not Currently 0 (1 standard drink = 0.6 oz pur e alcohol) PHQ-2 Answer Date Recorded PHQ-2 Score 3 09/23/2019 Sexually Active Control Partners Comments Not Currently Male Comments No Sex and Gender Information Value [...] hearing? Answer Date of Assessment Author No 11/23/2018 4:42 PM Racheal Castro RMA * Is the person blind or does he/she have serious difficulty seeing even when wearing glasses? Answer Date of Assessment Author No 11/23/2018 4:42 PM Racheal Castro RMA * Does this person have serious difficulty walking or climbing stairs? Answer Date of Assessment Author No 11/23/2018 4:42 PM Racheal Castro RMA * Does this person have difficulty dressing or bathing? Answer Date of Assessment Author No 11/23/2018 4:42 PM Racheal Castro RMA * Because of a physical, mental or emotional condition, does this person have difficulty doing errands alone such as visiting a doctor's office or shopping? Answer Date of Assessment Author No 11/23/2018 4:42 PM Racheal Castro RMA documented as of this encounter Mental Status * Because of a physical, mental or emotional condition, does this person have serious difficulty concentrating, remembering or making decisions? Answer Entry Date Author No 11/23/2018 4:42 PM Racheal Castro RMA documented in this encounter Plan of Treatment Upcoming Encounters Date Type Department Care Team (Late st Contact Info) Description 05/19/2025 12:30 PM EDT Office Visit SEP Diabetes [place] [address] [phone] Estrellita Franco MD [address] [place] [address] 05/27/2025 1:30 PM EDT Office Visit SEP GASTRO [facility] [address] [facility] 1D ENTRANCE, 3RD [place] [address] Kimberly Pereyra MD [address] [place] [address] 07/08/2025 10:30 AM EDT Office Visit SEP Neurology [facility] [address] [place] [address] Cecil Villegas MD [address] [place] [address] 10/08/2025 11:00 AM EST Appointment [facility] [address] [facility] [place] [address] 10/08/2025 11:15 AM EST Appointment [facility] [address] [place] [address] Emily Cherry, PRESS OPERATOR ASSISTANT [address] [facility] [address] [place] [address] documented as of this encounter [...] Procedure Name Priority Date/Time Associated Diagnosis Comments HPV HIGH RISK Routine 10/04/2019 11:00 AM EST Encounter for other general counseling and advice on contraception PEPPER PICKER CYTOLOGY REQUEST (PAP ONLY) Routine 10/01/2019 9:30 AM EST Encounter for other general counseling and advice on contraception documented in this encounter Results * HPV HIGH RISK (10/04/2019 11:00 AM EST) HPV HR Not Detected Not Detected 10/05/2019 2:17 AM EST [facility] [employer] Thin Prep SPECIMEN FROM UTERINE CERVIX / Unknown 10/04/2019 11:00 AM EST 10/04/2019 12:39 PM EST Narrative PREFERRED [employer] [facility] - 10/05/2019 2:17 AM EST This test was performed using the FDA Approved APTIMA HPV mRNA assay which detects E6/E7 messenger RNA of High Risk HPV types (16, 18, 31, 33, 35, 39, 45, 51, 52, 56, 58, 59, 66, and 68). This assay is intended for use in women 21 years or older with ASC-US cervical cytology or women 30 years or older. This assay is not intended to substitute for regular cervical cytology screening. Detection of HPV using the APTIMA HPV Assay does not differentiate HPV types and cannot evaluate persistence of any one type. The use of this assay has not been evaluated for the management of HPV vaccinated women, women with prior ablative or excisional therapy, hysterectomy, or who are . Sensitivities may be affected by collection methods, stage of infection, and the presence of interfering substances. Results of this assay should be interpreted in conjunction with other available laboratory and clinical data. [employer] MICROBIOLOGY - GENERAL ORDERABLE S Final Result Performing Organization Address City/State/ZIP Al de Phone Number [facility] [employer] [address] [place], [address] [place] [phone] * PEPPER PICKER CYTOLOGY REQUEST (PAP ONLY) (10/01/2019 9:30 AM EST) CASE REPORT Gynecologic Cytology Report Case: [id number] Authorizing Provider: [employer] Collected: 10/01/2019 0930 Ordering Location: [facility] Received: 10/04/2019 1613 First Screen: Estrellita Powers CT Rescreen: Catie Bales CT Specimen: LIQUID-BASED PAP - CERVICAL/ENDOCERV ICAL, Cervix, Endocervical 10/08/2019 4:04 PM EST [facility] PAP FINAL DIAGNOSIS Negative for intraepithelial lesion or malignancy 10/08/2019 4:04 PM EST [facility] at 1604 EST MICROSCOPIC DESCRIPTION Microscopic examination is performed and the findings corroborate the diagnosis. 10/08/2019 4:04 PM EST [facility] PAP SMEAR ADEQUACY Satisfactory for evaluation 10/08/2019 4:04 PM EST [facility] SPECIMEN LIMITATIONS Obscured by inflammation 10/08/2019 4:04 PM EST [facility] PAP ORGANISMS NOTED Trichomonas vaginalis present. 10/08/2019 4:04 PM EST [facility] ENDOCERVICAL T-ZONE Transformation zone absent. 10/08/2019 4:04 PM EST [facility] EMBEDDED IMAGES 0 4:04 PM EST [facility] PAP DISCLAIMER The Pap Smear is a screening test that aids in the detection of cervical cancer and cancer precursors. Both false positive and false negative results can occur. The test should be used at regular intervals, and positive results should be confirmed before definitive therapy. Processed using the [employer] Spinneret Person Automated cytology screening device ([employer]). 10/08/2019 4:04 PM EST [facility] Thin Prep ENDOCERVICAL STRUCTURE / Unknown 10/01/2019 9:30 AM EST 10/04/2019 4:13 PM EST [facility] CYTOLOGY [place] [address] documented in this encounter Visit Diagnoses Diagnosis Encounter for other general counseling and advice on contraception documented in this encounter Additional Health Concerns Infection Onset Date Last Indicated Resolved Time R/O COVID-19 08/18/2020 08/18/2020 08/21/2020 10:0 3 AM EST COVID-19 10/19/2021 10/19/2021 11/08/2021 10:1 2 PM EST R/O COVID-19 01/02/2023 01/02/2023 01/02/2023 7:31 PM EDT Assessment Noted Time PHQ-9 Depression Total Score: 10 09/23/2 019 9:17 AM EST PHQ-2 Depression Total Score: 3 09/23/20 19 9:17 AM EST documented as of this encounter Care Teams Applications Programmer Relationship Specialty Start Date End Date Hamida Moran APRN [address] [place] [phone] PCP - General Nurse Practitioner-Family 10/18/16 10/27/19 Diana Drew MD [address] [place] [address] PCP - General Family Medicine 07/31/20 12/12/22 Adele Caruso APRN [address] [facility] [address] [facility] [place] [address] PCP - General Nurse Practitioner 12/01/23 [place] [address] [place] [address] [address] [place] [address] 05/04/16 Ricki Palacios, NAE, COS Case Support Manager 03/04/22 03/14/22 Blanche Garcia LSW Photolithographic Stripper 05/09/24 07/28/24 Celina Cook Case Support Manager 05/21/24 06/19/24 documented as of this encounter
--- OUTSIDE RECORDS SUMMARY | 2025-05-14 10:47 | XMS_ITS | Encounter Summary ---
Author Organization [facility] Address [address] [place] [address] Care Team Providers Care Banquet Director Name Role Phone Hamida Moran Primary Care [...] release of HIV test results or diagnoses. [id number] Health Encounter Details Date Type Department Care Team (Late st Contact Info) Description 09/13/2018 Orders Only [facility] Outreach Lab Test Referral Center [address] [place] [phone] Fariha Lucas Illness (Primary Dx) Social History Tobacco Use Types [...] of this encounter Results * Vancomycin, trough (09/13/2018 7:28 PM EST) Vancomycin Tr 15.3 10.0 - 20.0 ug/mL 09/13/2018 10:15 PM EST [facility] Serum specimen (specimen) 09/13/2018 7:28 PM EST 09/13/2018 9:31 PM EST Mhamad Puneet APARICIO LAB BLOOD ORDERABLES Final Res ult [facility] [address] [id number], [facility] * (ABNORMAL) Basic metabolic panel (09/13/2018 7:28 PM EST) Sodium 139 133 - 146 mmol/L 09/13/2018 10:17 PM EST [facility] Potassium 4.0 3.5 - 5.3 mmol/L 09/13/2018 10:17 PM [facility] Chloride 102 98 - 110 mmol/L 09/13/2018 10:17 PM EST [facility] CO2 29 21 - 33 mmol/L 09/13/2018 10:17 PM [facility] Anion Gap 8 3 - 16 mmol/L 09/13/2018 10:17 PM EST [facility] BUN 8 7 - 25 mg/dL 09/13/2018 10:17 PM [facility] Creatinine 0.76 0.60 - 1.30 mg/dL 09/13/2018 10:17 PM [facility] Glucose 106(H) 70 - 100 mg/dL 09/13/2018 10:17 PM EST [facility] Calcium 9.4 8.6 - 10.3 mg/dL 09/13/2018 10:17 PM [facility] Osmolality, Calculated 287 278 - 305 mOsm/kg 09/13/2018 10:17 PM EST [facility] eGFR AA CKD-EPI >90 See note. 8 10:17 PM [facility] Comment: As of 2015 the estimated GFR is calculated from serum creatinine using the Chronic Kidney Disease Epidemiology Collaboration (CKD-EPI) equation in patients 18 years and older. The reference range is >60 mL/min/1.73m2. eGFR values greater than 90 will be reported as >90mL/min/1.73m2. Reference: Sherice , Carlitos LA, Lia CH, Williams YL, Ramo AF, 3rd, George HI, et. al. A new equation to estimate glomerular filtration rate. [facility] [employer] Med. 2009:150(9):604-12 eGFR NONAA CKD-EPI >90 See note. 2017 10:17 PM EST [facility] Comment: As of 2015 the estimated GFR is calculated from serum creatinine using the Chronic Kidney Disease Epidemiology Collaboration (CKD-EPI) equation in patients 18 years and older. The reference range is >60 mL/min/1.73m2. eGFR values greater than 90 will be reported as >90mL/min/1.73m2. Reference: Sherice , Carlitos LA, Lia CH, Kramer YL, Ramo AF, 3rd, Ariel LAM, et. al. A new equation to estimate glomerular filtration rate. [facility] Med. 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
== END 2025-05-13 23:59 | disposition home or self-care (01) ==
LOC: LAB.DROPOF 05-14 10:31
PROVIDERS: PCP Family Medicine; Visit Provider Family Medicine
DX: L03.116 Cellulitis of left lower limb (principal); L02.612 Cutaneous abscess of left foot
CPT/HCPCS: 87070; 87205

== ENCOUNTER 2025-07-29 13:34 | Outpatient (CLI) | payer OTHER, SELFPAY ==
--- OUTSIDE RECORDS SUMMARY | 2002-09-04 | XMS_ITS | Encounter Summary ---
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 (up to 18) Not on file 11/18/2016 If you are in a relationship , do you feel safe in that relationship? Yes 11/18/2016 Comments Unknown Sex and Gender Information Value Date Recorded Sex Assigned at Not on file Legal Sex Female 5:13 AM EST Gender Identity Not on file Sexual Orientation Not on file documented as of this encounter Plan of Treatment Not on file documented as of this encounter Visit Diagnoses Not on filedocumented in this encounter
[2025-07-29 18:52] LABS: Lyme Ab IgM CIA ND
[2025-07-29 18:58] LABS: Hematocrit 32.3 % (37.0-47.0); Hemoglobin 10.3 g/dL (12.2-16.2); Immature Granulocytes % 0.2 %; Mean Corpuscular HGB Conc 31.9 g/dL (31.8-35.4); Mean Corpuscular Hemoglobin 30.7 pg (27.0-31.2); Mean Corpuscular Volume 96.4 fl (81-99); Nucleated Red Blood Cells % 0 %; Platelet Count 279 K/mm3 (142-424); Red Blood Count 3.35 M/mm3 (4.20-5.40); Red Cell Distribution Width-SD 46.0 fL; White Blood Count 8.5 K/mm3 (4.8-10.8)
[2025-07-29 19:03] LABS: Alanine Aminotransferase 14 U/L (12-78); Albumin Level 3.4 g/dl (3.5-5.0); Albumin/Globulin Ratio 1.2 (1.1-1.8); Alkaline Phosphatase 80 U/L (38-126); Anion Gap 11.5 mEq/L (5-15); Aspartate Amino Transferase 16 U/L (14-36); Bilirubin,Total 0.4 mg/dl (0.2-1.3); Blood Urea Nitrogen 3 mg/dl (7-17); Calcium 8.4 mg/dl (8.4-10.2); Carbon Dioxide 19 mmol/L (22.0-30.0); Chloride 108 mmol/L (98-107); Creatinine,Serum 0.60 mg/dl (0.52-1.04); Estimated Glomerular Filt Rate 109 ml/min (>60); GFR (African American) 131 ML/MIN (>60); Globulin 2.9 g/dL (1.3-3.2); Glucose 112 mg/dl (74-100); Potassium 3.5 mmoL/L (3.5-5.1); Sodium 135 mmol/L (136-145); Total Protein,Serum 6.3 g/dl (6.3-8.2)
[2025-07-29 19:08] LABS: C-Reactive Protein 92.7 mg/L (0-4)
--- OUTSIDE RECORDS SUMMARY | 2025-07-31 13:44 | XMS_ITS | Clinical Summary ---
Author Organization [facility] Address [facility] [place] [address] Phone Care Team Providers Care Complex Case Manager Name Role Phone Unavailable Unavailable Conditions or Problems No information available. Medications No information available. Medications Administered No information available. Allergies, Adverse Reactions, Alerts No information available. Results No information available. Plan of Care No information available. Procedures No information available. Vital Signs No information available. Immunizations No information available. Advance Directives No information available.
--- OUTSIDE RECORDS SUMMARY | 2025-07-31 13:44 | XMS_ITS | Clinical Summary ---
Author Organization [facility] Address [address] [place] [address] Care Team Providers Care Crabbing Machine Operator Name Role Phone Unlisted, No Nekoma Requested Primary Care Provi haritha Unavailable Source Comments [facility] is fully rolled out with thefollowing exceptions:General Clinical Research [facility] Allergies No known active allergies Medications PULMICORT FLEXHALER 180 MCG/ACT inhaler Take 1 Puff by inhalation 3 times a day. 7 Active buPROPion (WELLBUTRIN-XL) 300 MG extended release tablet Take 300 mg by mouth 1 time a day. 7 Active citalopram (CeleXA) 10 MG tablet Take 20 mg by mouth 1 time a day. 7 Active ergocalciferol (VITAMIN D) 36413 UNITS capsule every 7 days. 7 Active [...] (2 - Td or Tdap) 07/21/2016 06/23/2016 AMB SEASONAL FLU VACCINE (#1) 05/26/2025 COVID-19 Vaccine ( - 2023-2 5 season) 2025 HIB IMMUNIZATION Aged Out No longer e [...] age to complete this topic Insurance [employer] [facility] Care Teams Crabbing Machine Operator Relationship Specialty Start Date End Date Unlisted, No Nekoma Requested PCP - General 11/18/16
[2025-08-01 14:55] LABS: Lyme Ab CIA Negative (Negative)
== END 2025-07-29 23:59 | disposition home or self-care (01) ==
LOC: LAB.DROPOF 07-31 13:35
PROVIDERS: PCP Family Medicine; Visit Provider Nurse Practitioner
DX: S20.96XA Insect bite (nonvenomous) of unspecified parts of thorax, initial encounter (principal); L08.9 Local infection of the skin and subcutaneous tissue, unspecified; W57.XXXA Bitten or stung by nonvenomous insect and other nonvenomous arthropods, initial encounter
CPT/HCPCS: 80053; 85025; 85651; 86140; 86618